=== PATIENT | male | born 1975 | race Caucasian/White ===

== ENCOUNTER 2024-05-27 08:40 | Outpatient (OUT) | payer SELFPAY ==
--- NOTE | 2024-05-27 09:00 | MR_ITS ---
The [address] [address] Patient Name: JENN DEMPSEY MRN: [id number] date: 1975 Sex: M Assigned Patient Location: MRI Current Patient Location: MRI Accession/Order Number: [id number] Exam Date: 05/27/2024 09:05 Report Date: 05/27/2024 10:54 At the request of: DAVIN MONTANA Procedure: MR head/brain wo con MR head/brain wo con, 05/27/2024 9:05 AM EDT INDICATION: Tremor G44.89, Headache G44.89 COMPARISON: There is no appropriate prior study for comparison. TECHNIQUE: Multiplanar, multisequential MRI images of brain were obtained without injection of contrast. FINDINGS: The cerebral sulci as well as ventricular system are appropriate for age. There is an extra-axial lesion within the left temporal frontal lobe with restricted diffusion and adjacent vasogenic edema most likely consistent with a meningioma. It measures 3.9 x 5.6 x 5.1 cm (transverse, AP, CC) and causes [id number] subfalcine herniation for approximately 1.5 cm. There is central mineralization within the lesion. There is a mass effect on the left lateral ventricle and the left cerebellar peduncle and suprasellar cistern. No hydrocephalus is noted. No hemorrhage is noted. Normal flow-void in the intracranial vessels is noted. The visualized portions of orbits, mastoid air cells as well as paranasal sinuses are unremarkable. MR/MR head/brain wo con IMPRESSION: No acute intracranial process is noted. Large left frontotemporal extra-axial with significant adjacent vasogenic edema causing [id number]-ve-[id number] subfalcine herniation most likely consistent with a meningioma. A complimentary postcontrast studies may be helpful for further evaluation. Electronically authenticated by: GODFREY JOSHI Date: 05/27/2024 10:54
== END 2024-05-27 08:41 | disposition home or self-care (01) ==
LOC: MRI 08:45
PROVIDERS: PCP Family Medicine; Visit Provider Family Medicine
DX: G44.89 Other headache syndrome (principal); R25.1 Tremor, unspecified
CPT/HCPCS: 70551

== ENCOUNTER 2025-01-26 09:20 | Outpatient (OUT) | payer SELFPAY ==
--- NOTE | 2025-01-26 09:25 | MR_ITS ---
[address] [address] Patient Name: JENN DEMPSEY MRN: [id number] date: 1975 Sex: M Assigned Patient Location: MRI Current Patient Location: MRI Accession/Order Number: [id number] Exam Date: 01/26/2025 10:41 Report Date: 01/26/2025 10:48 At the request of: NON-STAFF PHYSICIAN Procedure: MR head/brain wo/w con MRI the Brain with and without contrast TECHNIQUE: Multiplanar T1 and T2-weighted imaging of the brain. 14 cc of contrast HISTORY: Six-month follow-up assessment for right meningioma. COMPARISON: No prior imaging available for comparison VENTRICLES: Unremarkable BRAIN VOLUME: Adequate volume of brain parenchyma identified. BRAIN PARENCHYMAL SIGNAL INTENSITY: Left frontal gliosis and encephalomalacia likely postsurgical. . BLEED: None MASS EFFECT: No mass effect DIFFUSION RESTRICTION: None GRADIENT ECHO PARENCHYMAL SIGNAL LOSS: None MIDBRAIN: The midbrain structures are unremarkable. ANNAMARIE: Unremarkable MEDULLA: Unremarkable INTERNAL AUDITORY CANALS: Unremarkable SINUSES: Unremarkable ORBITS: Grossly unremarkable MASTOIDS: Unremarkable ENHANCEMENT: minimal postsurgical enhancement near the left frontal craniotomy. No abnormal enhancement seen to suggest recurrence of tumor. No new regions of enhancing mass. MR/MR head/brain wo/w con IMPRESSION: Left frontal postsurgical changes of gliosis and encephalomalacia in left frontal craniotomy with minimal postsurgical enhancement. No abnormal enhancement seen to suggest recurrence of tumor or new regions of enhancing tumor. Impression dictated by: Addy Robert M.D.01/26/2025 10:48 AM Dictation Location: [place] [id number] Electronically authenticated by: [id number] Y Date: 01/26/2025 10:48
--- OUTSIDE RECORDS SUMMARY | 2025-01-26 09:26 | XMS_ITS | CCD ---
Author Organization [facility] CliniSyla Care Team Providers Care Steno Typist Name Role Phone DAVIN MONTANA Referring Unavailable Unavailable Primary Care Provider Unavailabl e Nan DO, Davin Ba Unavailable Nan DO, Davin Ba Primary Care Provider NANCY, GANESH R Referring Unavailable NAN, DAVIN S Primary Care Unavailable KSHETTRY, GANESH R Referring Unavailable NAN, DAVIN S Primary Care Unavailable NAN, DAVIN S Primary Care Unavailable NAN, DAVIN S Primary Care Unavailable NAN, DAVIN S Referring Unavailable KSHETTRY, GANESH R Attending Unavailable KSHETTRY, GANESH R Attending Unavailable NAN, DAVIN S Primary Care Unavailable KSHETTRY, GANESH R Referring Unavailable SELINA MINOR Attending Unavailable NAN, DAVIN S Primary Care Unavailable SELF Referring Unavailable NAN, DAVIN S Primary Care Unavailable KSHETTRY, GANESH R Referring Unavailable KSHETTRY, GANESH R Admitting Unavailable KSHETTRY, GANESH R Attending Unavailable NAN, DAVIN S Primary Care Unavailable NAN, DAVIN S Primary Care Unavailable KSHETTRY, GANESH R Referring Unavailable DOMINIK DOWELL Referring Unavailable NAN, DAVIN S Primary Care Unavailable KSHETTRY, GANESH R Referring Unavailable NAN, DAVIN S Primary Care Unavailable Medications Current Medications Medication Drug Class(es) Dates Sig (Normalized) Sig (Original) acetaminophen 325 mg oral tablet (3 sources) take 2 tablets by mouth every six hours as needed acetaminophen (TYLENOL) 325 mg tablet Take 650 mg by mouth every 6 hours as needed for pain or fever (specify temp.). Active levETIRAcetam 1000 mg oral tablet (3 sources) Start: 07-05-2024 End: 07-19-2024 take 1 tablet by mouth twice daily levETIRAcetam (KEPPRA) 1,000 mg tablet take 1 tablet by ORAL/FEEDING TUBE route two times a day for 14 days. 28 tablet 07/05/2024 Active MULTIVITAMIN ORAL (6 sources) MULTIVITAMIN ORA L Take by mouth. Suspended MULTIVITAMIN ORA L Take by mouth. Active Completed/Discontinued Medications Medication Drug Class(es) Dates Sig (Normalized) Sig (Original) docusate sodium 100 mg oral capsule (2 sources) Start: 07-05-2024 End: 07-19-2024 take 1 capsule by mouth twice daily docusate sodium (COLACE) 100 mg capsule Take 1 capsule by mouth two times a day for 14 days. 28 capsule 07/05/2024 07/19/2024 Problems Problem Classification Problem Date Documented Date Episodic/Chronic Conditions associated with dizziness or vertigo (1 source) Dizziness and giddiness; Translations: [Dizziness and giddiness] Onset: 05-21-2024 Episodic Headache; including migraine (1 source) Other headache syndrome; Translations: [Other headache syndrome] Onset: 05-21-2024 Episodic Other and unspecified benign neoplasm (12 sources) Neoplasm of meninges; Translations: [Benign neoplasm of meninges, unspecified] Onset: 07-03-2024 06-05-2024 Chronic Other and unspecified benign neoplasm (1 source) Benign neoplasm of meninges, unspecified; Translations: [Meningioma (HCC)] Onset: 07-03-2024 Chronic Other nervous system disorders (1 source) Mass lesion of brain; Translations: [Other specified disorders of brain] 07-03-2024 Chronic Other nervous system disorders (1 source) Tremor, unspecified; Translations: [Tremor, unspecified] Onset: 05-21-2024 Episodic Other nervous system disorders (3 sources) Postoperative pain ; Translations: [Other acute postprocedural pain] Onset: 07-05-2024 07-05-2024 Episodic Other nervous system disorders (1 source) Other acute postprocedural pain; Translations: [Postoperative pain] Onset: 07-05-2024 Episodic Other screening for suspected conditions (not mental disorders or infectious disease) (2 sources) Encounter for screening for lipoid disorders; Translations: [Encounter for screening for malignant neoplasm of prostate] Onset: 05-21-2024 Episodic Results Test Name Value Interpretation Reference Range Facility [facility] 08-14-2024 CNOV Office Visit (NSCAMN ) ----- JENN FAN ([id number]) 1975 M Date Time Provider Department 08/14/24 11:00 AM [facility] During your visit today, we recorded the following information about you: Temperature Pulse Respiration Blood pressure 97.7 degrees 80/minute 18/minute 149/95 Weight 77.7 kg Lana Yanez MA 08/14/2024 10:50 AM Signed Additional intake questions: Has the patient had fever, nausea, vomiting, diarrhea, constipation, fatigue for > 1 week? No Does the patient have a decreased appetite? No Does patient want to see a Credit Risk Specialist? No (yes to any of above refer patient to schedulers for dietitian appointment) ) Does patient have any new or increased numbness or tingling of extremities? No Is patient interested in fertility information? No Does patient need any prescription refills? No Does patient have an advanced directive in place? 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 He had significantly improvement in cognitive/memory functions. He's doing well without complication and very pleased with result. I would like to consider [employer], but he's self-pay, we will inquire with company. As default, I would get one MRI brain with contrast at 6 months, before increasing to 9 or 12 given the atypical features radiographically preop. Hopefully he'll have a durable benefit from resection of convexity meningioma. PLAN: ---MRI brain with contrast at 6 months and visit with Selina Cruz MD Staff, Skull Base AND Cerebrovascular Surgery Department of Neurological Surgery [facility] SUBJECTIVE: Patient is doing really well No more NEW and pain Energy is good, much better Much improved cognitive and memory Better focus No seizure concerns Current Outpatient Medications Medication Sig MULTIVITAMIN ORAL Take by mouth. levETIRAcetam (KEPPRA) 1,000 mg tablet take 1 tablet by ORAL/FEEDING TUBE route two times a day for 14 days. acetaminophen (TYLENOL) 325 mg tablet Take 650 mg by mouth every 6 hours as needed for pain or fever (specify temp.). No current facility-administered medications for this visit. PHYSICAL EXAMINATION: BP 149/95[md notified[ Pulse 80 Temp (Src) 97.7 (Oral) Resp 18 Wt 171 lb 4.8 oz (77.7kg) SpO2 99% Oriented to person, place, and time Speech: Normal fluency and comprehension 2nd cranial nerve: Full visual kat 3rd, 4th and 6th cranial nerves: Pupils equally round and reactive to light, extraocular movements intact without nystagmus or subjective diplopia 5th cranial nerve: V1-3 intact to light touch bilaterally 7th cranial nerve: Facial muscles full and symmetric bilaterally 8th cranial nerve: hearing intact to finger rub bilaterally 9th cranial nerve: gag reflex test deferred 10th cranial nerve: Palate elevates symmetrically and uvula in the midline 11th nerve: shoulder shrug 5/5 bilaterally 12th cranial nerve: tongue protrudes in the midline Motors: 5/5 strength throughout without pronator drift Sensation: intact to light touch in all extremities Coordination: no dysmetria on finger-nose testing bilaterally Gait: able to stand and ambulate independently with normal gait Inc c/d/I, no temporalis atrophy well healed DATA REVIEW: MRI: GTR Ganesh Cruz MD 08/14/2024 11:07 AM Signed PLAN: Referring Provider: GANESH CRUZ [[id number]] Allergies As of Date: 08/14/2024 (No Known Allergies) Date Reviewed: 08/14/2024 Reviewed by: Lana Yanez MA - Fully Assessed Reason for Visit: Post Op [174] Primary Visit Diagnosis:Meningioma (HCC) [D32.9] Prescriptions as of 08/14/2024 - levETIRAcetam (KEPPRA) 1,000 mg tablet take 1 tablet by ORAL/FEEDING TUBE route two times a day for 14 days. - acetaminophen (TYLENOL) 325 mg tablet Take 650 mg by mouth every 6 hours as needed for pain or fever (specify temp.). - MULTIVITAMIN ORAL Take by mouth. Problem List As Of Date 08/14/2024 Noted Resolved Meningioma (HCC) [D32.9] 07/03/2024 Postoperative pain [G89.18] 07/05/2024 Other instructions from your clinician: PLAN: Visit Notes: >> Lana Yanez MA Fri Aug 14, 2024 10:48 AM Status: Signed Additional intake questions: Has the patient had fever, nausea, vomiting, diarrhea, constipation, fatigue for > 1 week? No Does the patient have a decreased a (more content not included)... Normal [facility] CNNURSEon 07-17-2024 [facility] Nurse Visit (NSCAMN) ----- JENN FAN ([id number]) 1975 M Date Time Provider Department 07/17/24 2:45 PM [facility]RA[facility] During your visit today, we recorded the following information about you: Lana Yanez MA 07/17/2024 2:57 PM Signed Reviewed and confirmed with patient that there were no changes in the the nursing assessment and vitals that were completed on July 17, 2024 during previous provider appointment. JOSE JUAN Alarcon Maria K, RN 07/20/2024 8:56 AM Signed Patient is here today accompanied by his for surgical incision wound check. Surgery: Craniotomy on 07/03/24 for Meningioma resection with Dr Ganesh Cruz. Patient is recovering well postoperatively. No neurological symptoms or complaints compared to preoperative baseline . Re-discussed postoperative activity and associated restrictions. Incision is well approximated and healing. There are no signs or symptoms of infection. Reviewed wound care with patient with good understanding and confirmed postoperative follow up appointment with Dr Ganesh Cruz. Patient aware to phone office with any questions or concerns. GIOVANNY Quiroz, RN Pattern Storage Clerk Referring Provider: SELF [[id number]] Allergies As of Date: 07/17/2024 (No Known Allergies) Date Reviewed: 07/17/2024 Reviewed by: Lana Yanez MA - Fully Assessed Primary Visit Diagnosis:Meningioma (HCC) [D32.9] Prescriptions as of 07/20/2024 - levETIRAcetam (KEPPRA) 1,000 mg tablet take 1 tablet by ORAL/FEEDING TUBE route two times a day for 14 days. - acetaminophen (TYLENOL) 325 mg tablet Take 650 mg by mouth every 6 hours as needed for pain or fever (specify temp.). - MULTIVITAMIN ORAL Take by mouth. Problem List As Of Date 07/17/2024 Noted Resolved Meningioma (HCC) [D32.9] 07/03/2024 Postoperative pain [G89.18] 07/05/2024 Visit Notes: >> Lana Yanez MA Fri Jul 17, 2024 2:57 PM Status: Signed Reviewed and confirmed with patient that there were no changes in the the nursing assessment and vitals that were completed on July 17, 2024 during previous provider appointment. Lana Yanez MA Encounter Status:Closed by JIL GRAHAM on 07/20/24 [facility] CNOVon 07-17-2024 CNOV Office Visit (NSCAMN ) ----- JENN FAN ([id number]) 1975 M Date Time Provider Department 07/17/24 2:45 PM SELINA MINOR [facility] During your visit today, we recorded the following information about you: Temperature Pulse Respiration Blood pressure 97.6 degrees 88/minute 18/minute 137/85 Weight 78.1 kg Selina Minor APRN.DIRECTOR CARD 07/17/2024 3:30 PM Signed Neurological [facility] NEURO-ONCOLOGY OUTPATIENT NOTE PURPOSE OF VISIT: Consultation requested by Dr. Ganesh Cruz for an opinion regarding meningioma and my final recommendations will be communicated to the referring physician by way of shared medical record or letter to requesting physician via US mail. CHIEF COMPLAINT : Post op MEDICAL DECISION MAKING Assessment AND Plan 1. 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 Cruz as scheduled on 08/14/24 - Reviewed signs and symptoms that would prompt sooner evaluation - The patient has our contact information and was advised to call if new symptoms, questions or concerns arise prior to next scheduled visit. - All questions were answered. Selina Minor APRN.DIRECTOR CARD Certified Nurse Practitioner cc: Ganesh Cruz MD-[facility] Subjective HISTORY OF PRESENT ILLNESS: Jenn Fan is a 48 year old year old right-handed male who was found to have a 5.6 cm left fronto-temporal extra-axial lesion with surrounding edema, resulting in midline shift when he presented with a few months of headaches, speech difficulty, memory and personality changes. He is now . S/p Nguyen Grade II Left sided sphenofrontotemporal skull base approach with orbitotomy to approach anterior and middle fossa for skull base tumor on 07/03/24 with pathology showing Meningothelial meningioma, WHO Grade 1. Ki 67 index of 5-6%. INTERVAL HISTORY 07/17/24 Doing well. Reports clearer thoughts and better memory. No post surgical pain. No speech difficulties. All around feels more like himself. SOCIAL HISTORY: Social History Tobacco Use Smoking status: Never Smokeless tobacco: Former Types: Chew Quit date: 1999 Substance Use Topics Alcohol use: Not Currently Drug use: Not Currently Comment: last use in 1999 - MJ No past medical history on file. FAMILY HISTORY Problem Relation Age of Onset Anesthesia Problems No Family History Current Outpatient Medications Medication Sig levETIRAcetam (KEPPRA) 1,000 mg tablet take 1 tablet by ORAL/FEEDING TUBE route two times a day for 14 days. methocarbamol (ROBAXIN) 750 mg tablet Take 1 tablet by mouth three times a day as needed for up to 10 days. docusate sodium (COLACE) 100 mg capsule Take 1 capsule by mouth two times a day for 14 days. acetaminophen (TYLENOL) 325 mg tablet Take 650 mg by mouth every 6 hours as needed for pain or fever (specify temp.). MULTIVITAMIN ORAL Take by mouth. No current facility-administered medications for this visit. REVIEW OF SYSTEMS : Neurological : No complaint of headache No complaint of tinnitus No complaint of decreased hearing No complaint of diplopia No complaints of blurred vision. No complaint of arm/leg numbness No problem with limb coordination No complaint of syncope No complaints of seizures. No complaints of memory changes or disorientation. General : Constitutional: No recent fever or weight loss. Eyes: No history of glaucoma or cataracts ENMT: No recent ear infection, nasal congestion, mouth sores or sore throat. CV: No history of chest pain, palpitations or leg swelling Respiratory: No history of SOB, wheezing or recent cough. Gastrointestinal: No history of nausea, vomiting, dysphagia or abdominal pain. Genitourinary: No history of hematuria or dysuria. Musculoskeletal: No complaint of arthritis, unstable gait or arm/leg weakness Psychiatric: No history of hallucinations, depression, or anxiety Objective PHYSICAL EXAMINATION: There were no vitals taken for this visit. General appearance: Well appearing, alert, in no acute distress, well-hydrated, well nourished. Skin: Skin color, texture, turgor normal, no suspicious rashes or lesions, incision clean, dry, intact Oropharynx: Lips, mucosa, and tongue normal, teeth and gums normal, oropharynx normal NEUROLOGICAL EXAM: Higher integrative functions: Oriented to person, place AND time. Memory: Good recent and remote. Attention Span and Concentration: Good. L (more content not included)... [facility] HNO [facility]: [id number] Author: GANESH CRUZ MD Service: Neurosurgery Author Type: Resident Type: Discharge Summary Filed: 07/06/2024 08:54 Note Text: ----- Attestation signed by Ganesh Cruz MD at 07/06/2024 8:54 AM Ganesh Cruz MD Staff, Skull Base AND Cerebrovascular Surgery Department of Neurological Surgery [facility] ----- [facility] [place] [phone] or [phone] [facility] L I N F O R M A T I O N ----- Neurological Early Branch Discharge Summary Patient Name: Jenn Fan Account #: Data Unavailable Admission Date: 07/03/2024 Date of Evaluation: 07/05/24 Time of Evaluation: 11:24 AM Admission Date: 07/03/2024 Discharge Date: 07/05/24 Attending Physician: Ganesh Cruz MD PCP: Davin Montana DO Reason for Hospitalization: sphenoidorbitalfrontal meningioma, left sided Final Diagnoses: Patient Active Hospital Problem List: Meningioma (HCC) Date Noted: 07/03/2024 Operations During Hospitalization: Left sided craniotomy for resection of brain lesion Hospital Course: The patient was electively admitted to the [facility]. After being optimized for surgery by the Neurosurgery and IMPACT teams, Jenn Fan was identified and brought into the Operating Room by the anesthesia and nursing teams. Prior to surgery the patient was treated with antibiotics and continued with antibiotics postoperatively. The patient underwent a Left sided craniotomy for resection of brain lesion with general endotracheal anesthesia. The patient tolerated the procedure and was taken to PACU in stable condition. The patient was then transferred up to a Neuro SDU hospital room for postoperative management. Patient was fitted with sequential compression devices for DVT prophylaxis. Postoperatively the patient did well. The patient was transitioned to oral pain medications, ambulated, tolerated diet and passed gas. MRI brain was completed on 07/04/24 and demonstrated GTR with minimal DWI signal around the resection bed. The patient was discharged on 07/05/24 in stable condition. Complete and comprehensive discharge instructions were provided to the patient as well as necessary prescriptions. The patient had no further questions and was advised to call with any questions, concerns, or problems. Patient's pain was well controlled with Oral Pain Medications. Physical therapy was started on POD # 1, and the final recomandation for dispo was to: Home without skilled needs Discharge Medications: Medication List ASK your doctor about these medications MULTIVITAMIN ORAL TylenoL 325 mg tablet Generic drug: acetaminophen Discharge Objective Exam: 07/05/24 0400 07/05/24 0800 07/05/24 0815 07/05/24 0822 BP: 128/70 154/90 Pulse: 72 75 82 Resp: 15 (!) 31 18 Temp: 36.8 ?C (98.2 ?F) 36.7 ?C (98.1 ?F) TempSrc: SpO2: 97% 98% 100% Weight: Height: Exam AAOx3 Eyes open spontaneously Speech intact PERRL Visual kat full EOMI L periorbital edema, o/w symmetric RUE 5 LUE 5 RLE 5 LLE 5 No drift Cranial incision c/d/i Normal [facility] HEALTHon 07-04-2024 ALLIED HEALTH HNO ID: [id number] Author: SHANI WALLACE RT(Candace) Service: Radiology Author Type: Activities Concierge Type: Allied Health Filed: 07/04/2024 08:46 Note Text: Radiology Service Progress Note PATIENT NAME: Jenn Fan DATE OF SERVICE: July 04, 2024 TIME: 8:46 AM PATIENT IDENTITY VERIFICATION COMPLETED USING TWO (2) IDENTIFIERS: Name and Date of confirmed by patient verbally and Name and Date of confirmed by identification band. FALL SCREENING: Has the patient had 2 falls in the last year or 1 fall with injury or currently using an Ambulatory Assistive Device (Walker, Cane, Wheelchair, Crutches, etc.)? Inpatient: Screened on floor PATIENT GENDER DATA: Male PATIENT RELEVANT IMPLANT DATA REVIEWED: Yes PATIENT PRESENTS WITH AN IMPLANTABLE OR ATTACHED KINDERGARTEN TUTOR: No RADIOLOGY DEPARTMENT: MR; Exam(s) Completed: Head: Routine Brain PERIPHERAL IV DATA: Inpatient: see LDA documentation SIGNED BY: RT Doyle(R) July 04, 2024 8:46 AM Normal [facility] ANES POSTPROC EVALon 024 ANES POSTPROC EVAL HNO ID: [id number] Author: ROYAL JOSEPH MD Service: ? Author Type: Anesthesiologist Type: Anesthesia Postprocedure Evaluation Filed: 07/04/2024 01:08 Note Text: POST ANESTHESIA EVALUATION NOTE : 1975 Procedure Summary Date: 07/03/24 Room / Location: [address] [facility] Anesthesia Start: 1215 Anesthesia Stop: 1900 Procedures: ORBITOCRANIAL ZYGOMATIC APPROACH TO MID CRANI-FOSSA OSTEOTOMY W/ ELEVATE TEMPORAL LOBE (Left: Brain) RESECTION LESION BASE OF POSTERIOR CRANIAL FOSSA INTRADURAL W/ REPAIR (Left: Brain) STEREOTACTIC COMPUTER-ASSISTED NAVIGATIONAL PROCEDURE CRANIAL (Brain) MICROSURGICAL TECHNIQUES REQUIRING MICROSCOPE (Brain) Diagnosis: Meningioma (HCC) (Meningioma (HCC) [D32.9]) Surgeons: Ganesh Cruz MD Responsible Provider: Royal Joseph MD Anesthesia Type: general ASA Status: 2 Anesthesia Type: general Airway Type: ETT Last Vitals Vitals Value Taken Time BP 115/75 07/04/24 0101 Temp 37 ?C (98.6 ?F) 07/03/242029 Pulse 83 07/04/24105 Resp 17 07/04/24 010 SpO2 95 % 07/04/24105 Vitals shown include unfiled device data. Post Anesthesia Patient Status Patient Evaluation: PACU. PACU/ICU Patient Condition: stable. Neurological Status: aware and responsive. Pulmonary Status: breathing comfortably on supplemental oxygen Airway Control: returned to baseline unsupported. Cardiovascular Status: stable. Pain Management: clinically adequate Postoperative Hydration: acceptable. Intraoperative Events: no significant anesthesia events Post Operative Nausea/Vomiting Status: no significant post operative nausea or vomiting Recommendation: continue current plan of care and further care per PACU/ICU/floor team. Anesthesia Observations No Documentation SIGNATURE: Royal Joseph MD PATIENT NAME: Jenn Fan DATE: July 04, 2024 TIME: 1:08 AM CSN: [id number] Normal [facility] MRI BRAIN WO/W IVCONon 07-04 MRI BRAIN WO/W IVCON * * *Final Report* * * DATE OF EXAM: Jul 04 2024 8:58AM QBM [id number] - MRI BRAIN WO/W IVCON / PROCEDURE REASON: Post-operative / post-procedure assessment, asymptomatic * * * * Physician Interpretation * * * * EXAMINATION: MRI BRAIN WO/W IVCON CLINICAL HISTORY: Postop follow-up TECHNIQUE: Routine brain MRI protocol without and with contrast including diffusion images. MQ: [id number] Contrast: Please refer to technologist's note for contrast information. COMPARISON: MR brain from 07/02/2024 and 05/27/2024 RESULT: Acute Change: Mild restricted diffusion along the peripheral margins of the surgical cavity consistent with postop ischemic changes. Hemorrhage: See below. Mass Lesion/ Mass Effect: Status post left frontal craniotomy for frontal mass resection. Postsurgical changes such as pneumocephalus, stability artifact, T1 intrinsic signal and FLAIR signal within the margins of the surgical cavity consistent with blood byproducts and subdural collection underlying the craniotomy site are noted. Subgaleal collection overlies the craniotomy site. Slight interval improvement of the T2/FLAIR hyperintense signal in the left frontal lobe with improved midline shift now measuring 9 mm, most previously measured 12 on MR dated 05/27/2024. Chronic Change: The white matter is within otherwise normal limits of signal intensity for age. Parenchyma: No significant volume loss for age. Ventricles: Effacement of the left lateral ventricle secondary to vasogenic edema as described, slightly improved from prior imaging. Skull Base: Hypothalamic and pituitary region are grossly normal. Craniocervical junction is normal. No significant marrow replacement process. Vasculature: Major intracranial arterial structures, and dural venous sinuses show typical flow void, suggesting patency by spin echo criteria. Other: The visualized paranasal sinuses. Trace fluid right mastoid air cell. The orbits and extracranial soft tissues are unremarkable. IMPRESSION: Expected postoperative changes related to left frontal craniotomy for tumor resection. Slight interval improvement of the T2/FLAIR hyperintense signal and subfalcine shift. Pick Pack Worker: SYDNEY Transcribe Date/Time: Jul 04 2024 9:00A Dictated by : CHRISTI POOLE MD This examination was interpreted and the report reviewed and electronically signed by: TRISH DEXTER MD on Jul 04 2024 9:26AM EST [id number] Normal [facility] NURSING PROGon 07-04-2024 NURSING PROG HNO ID: [id number] Author: SUE POLLACK RN Service: Nursing Author Type: Registered Nurse Type: Nursing Progress Note Filed: 07/04/2024 08:31 Note Text: Radiology Service Progress Note DATE OF SERVICE: July 04, 2024 TIME: 8:30 AM PATIENT WEIGHT: 180LBS PATIENT IDENTITY VERIFICATION COMPLETED USING TWO (2) STANDARD IDENTIFIERS: Name and Date of confirmed by patient verbally and Name and Date of confirmed by identification band. FALL SCREENING: Has the patient had 2 falls in the last year or 1 fall with injury or currently using an Ambulatory Assistive Device (Walker, Cane, Wheelchair, Crutches, etc.)? Inpatient: Screened on floor PATIENT GENDER DATA: Male ALLERGIES: Reviewed and unchanged CONTRAST ALLERGY: No EXAM: MRI - CONTRAST TYPE: GROUP II IV SITE: Inpatient - refer to LDA documentation IV SITE APPEARANCE: Clean,Dry and Intact SIGNATURE: Sue Pollack RN PATIENT NAME: Jenn Fan DATE: July 04, 2024 TIME: 8:30 AM Normal [facility] THERAPY NTon 07-04-2024 THERAPY NT HNO ID: [id number] Author: HEAVEN ESCAMILLA, PT, DPT Service: Physical Therapy Author Type: Physical Therapist Type: Therapy (PT/OT/Speech/Resp) Filed: 07/04/2024 15:03 Note Text: Physical Therapy Evaluation Summary SERVICE DATE: 07/04/2024 SERVICE TIME: 1408 to 1423 ROOM: [address] PT 6 Clicks Score: 24 DISCHARGE RECOMMENDATIONS Home Recommended Discharge Equipment: No equipment needs anticipated ASSESSMENT Response to Therapy Interventions: Good Participation in Activities, On-Track to Achieve Discharge Goals, Pain RN approved today's session. Patient sitting up in chair at beginning of session, reporting slight pain in head. Patient able to perform all functional mobility this date with supervision only. Reviewed crani precautions with patient and spouse as well as answered all questions. Will sign off a this time PRECAUTIONS Crani CURRENT HOSPITAL COURSE S/p L crani for meningioma rxn Relevant Past Medical History: left sided meningioma HOME LIVING Patient Lives With: Spouse Assistance Available: 24-Hour Entry To Home: Stairs Number Of Stairs Into Home: 4 Number Of Stairs To Bed/Bath: flight Stairs to Bed/Bath with: Unilateral Rail Equipment Owned: (None) PRIOR FUNCTIONAL LEVEL Within Functional Limits Pt IND with ADLs/IADLs and functional mobility with no AD. Drives, works multimedia manager SUBJECTIVE Pt agreeable to therapy this date THERAPY DIAGNOSIS Reduced mobility-other TREATMENT INTERVENTIONS Evaluation Skilled Treatment Time (minutes): 15 TRAINING AND EDUCATION PROVIDED Advanced Balance Activities, Anatomy and Impact on Deficits, Benefits of In-Hospital Mobility, Disease Specific Education, Discharge Planning, Energy Conservation, Expected Functional Level, Falls Prevention, Home Safety, Pain Neuroscience, Patient Exercise/Therapy Program Support Needs, Precautions/Restrictions, Transfers, Standing Balance, Treatment Protocol, Stair Navigation, Role of Physical Therapy THERAPEUTIC SKILLS USED Activity Dosing, Cues for Sequencing/Proper Technique for Activity, Cuing Verbal, Cuing Visual, Cuing Tactile, Management of Critical Lines, Tubes and/or Drains, Teach-Back for Education FUNCTIONAL STATUS Bed Mobility Transfers Sit To Stand: Supervision Stand To Sit: Supervision Bed to Chair Gait Supervision Gait Device: None General Deviations/Observations: Step length decreased Gait Distance (feet): 200 ft Stairs Supervision Stairs Device: Rail Number of Stairs: 10 GOALS Patient will demonstrate progress with functional mobility to allow safe discharge to home with available support and/or physical assistance. Rehab Potential: Good PLAN PT Frequency: Discontinue Therapy Services Reasons Therapy Services Discontinued: Goals met Treatment Interventions: Self Care / Home Management, Education, Energy Conservation Training, Strengthening, Balance Training, Neuromuscular Re-education, Functional Mobility Training, Joint Mobility SIGNATURE: Heaven Escamilla PT, DPT PATIENT NAME: Jenn Fan DATE: July 04, 2024 TIME: 3:03 PM Normal [facility] NT HNO ID: [id number] Author: CÉSAR CHOPRA, OT/L Service: Occupational Therapy Author Type: Occupational Therapist Type: Therapy (PT/OT/Speech/Resp) Filed: 07/04/2024 09:53 Note Text: Occupational Therapy Evaluation Summary SERVICE DATE: 07/04/2024 SERVICE TIME: 922 to 947 ROOM: [address] OT 6 Clicks Score: 24 DISCHARGE RECOMMENDATIONS Home Anticipated Discharge Needs: Physical Assist at Home Physical Assist at Home for: Cleaning, Laundry, Meals, Transportation, Shopping ASSESSMENT Response to Therapy Interventions: Good Participation in Activities Pt demos good safety and IND with ADLs and functional mobility. BUE in tact, has some L side vision impairments and educated on scanning activities and compensatory strategies. Educated in crani precuaitons and LB dressing techniques. Has some L eye swelling but able to fully open eye so not KT tape needed. Will DC OT PRECAUTIONS Crani CURRENT HOSPITAL COURSE S/p L crani for meningioma rxn Relevant Past Medical History: left sided meningioma HOME LIVING Patient Lives With: Spouse Entry To Home: Stairs Number Of Stairs Into Home: 4 Number Of Stairs To Bed/Bath: flight PRIOR FUNCTIONAL LEVEL Within Functional Limits Pt IND with ADLs/IADLs and functional mobility with no AD. Drives, works multimedia manager Baseline Cognition: Oriented to self, Oriented to place, Oriented to time, Oriented to situation SUBJECTIVE Pt agreeable to OT COGNITION Responsiveness: Alert, Awake Follows Commands: 3-step Commands Cog 6 Start of Session Total Points (Max Score = 24): 24 (07/04/24) Cog 6 End of Session Total Points (Max Score = 24): 24 (07/04/24) 4AT Score: 0 (07/04/24) Delirium Positive/Negative: Negative (07/04/24) THERAPY DIAGNOSIS No Skilled Need TREATMENT INTERVENTIONS Evaluation, Therapeutic Activity (35912) Timed Code Treatment (minutes): 10 Skilled Treatment Time (minutes): 25 TRAINING AND EDUCATION PROVIDED Activity Adaptation/Compensatory Strategies, Bed Mobility, Benefits of In-Hospital Mobility THERAPEUTIC SKILLS USED Activity Dosing, Cuing Verbal, Facilitation of Joint Range of Motion, Movement Facilitation, Therapeutic Use of Self FUNCTIONAL STATUS Activities of Daily Living Assist Level Additional Information Feeding Independent Grooming Independent Bathing Upper Body Stand By Assistance Bathing Lower Body Stand By Assistance Dressing Upper Body Stand By Assistance Dressing Lower Body Stand By Assistance Toileting Stand By Assistance Mobility Assist Level Additional Information Bed Mobility Sit to Stand Stand By Assistance Stand to Sit Stand By Assistance Bed to Chair Stand By Assistance Bed To Chair Transfer Type: Stepping Bed To Chair Transfer Equipment: Gait Belt Toilet/Commode Supervision Shower Functional Mobility Stand By Assistance GOALS PLAN OT Frequency: Discontinue Therapy Services Reasons Therapy Services Discontinued: Goals met SIGNATURE: César Chopra OT/L PATIENT NAME: Jenn Fan DATE: July 04, 2024 TIME: 9:53 AM Normal [facility] ANES PRE-OPon 07-03-2024 ANES PRE-OP HNO ID: [id number] Author: CAITLIN CARDOSO DO Service: ? Author Type: Physician Type: Anesthesia Preprocedure Evaluation Filed: 07/03/2024 12:03 Note Text: ANESTHESIOLOGY DAY OF SURGERY NOTE : 1975 Procedure Information Date/Time: 07/03/24 1215 Procedures: ORBITOCRANIAL ZYGOMATIC APPROACH TO MID CRANI-FOSSA OSTEOTOMY W/ ELEVATE TEMPORAL LOBE (Left: Brain) RESECTION LESION BASE OF POSTERIOR CRANIAL FOSSA INTRADURAL W/ REPAIR (Left: Brain) STEREOTACTIC COMPUTER-ASSISTED NAVIGATIONAL PROCEDURE CRANIAL (Brain) MICROSURGICAL TECHNIQUES REQUIRING MICROSCOPE (Brain) Location: [facility]IN [facility] Surgeons: Ganesh Cruz MD Estimated body mass index is 26.83 kg/m? as calculated from the following: Height as of 07/02/24: 175.3 cm (5' 9 ). Weight as of 07/02/24: 82.4 kg (181 lb 10.5 oz). Most recent hematocrit and potassium results: Hematocrit 42.9 07/02/2024 Potassium 4.3 07/02/2024 Relevant Problems No relevant active problems I - PHYSICAL EVALUATION AIRWAY Patient intubated: No. Tracheostomy tube not present Mallampati: II. TM distance: >3 FB. Neck ROM: full ROM without neurological symptoms. Mouth opening: adequate. Short neck: no. Thick neck: no DENTAL Dental findings: teeth intact. II - ANESTHESIA PLAN ASA Score: 2 Anesthetic Plan: general Airway type: ETT NPO Status: adequate Beta Nik Monitoring Plan Monitoring plan: standard ASA and invasive hemodynamic monitoring. Monitoring method: arterial Line Post Procedure Analgesic Plan Postoperative analgesic plan: per surgical service, parenteral or oral opioids and multimodal analgesia. Informed Consent Anesthetic risks, benefits, alternatives, personnel and consent discussed: yes. Patient / Responsible Constitution Party agrees to proceed: yes Patient / Surrogate agrees to blood products: Yes Significant changes in the patient condition since the History and Physical, not otherwise documented in primary service progress note: no. Potential Anesthesia issues that may suggest increased risk of complications or contraindication to planned procedure: none. Vitals Value Taken Time BP 142/90 07/03/24 1042 Pulse 83 07/03/24 1042 Resp 16 07/03/24 1042 Temp 36.2 ?C (97.2 ?F) 07/03/24 1042 SpO2 98 % 07/03/24 1042 Facility-Administered Medications as of 07/03/2024 Medication Dose Route Frequency lidocaine (PF) 10 mg/mL (1 %) 1-2 mg injection (XYLOCAINE) 0.1-0.2 mL INTRADERMAL PRN Or lidocaine 1% 0.25 mL subcutaneous j-tip syringe (XYLOCAINE) 0.25 mL SUBCUTANEOUS PRN lactated ringers iv infusion 5-30 mL/hr INTRAVENOUS CONTINUOUS NaCl 0.9% iv flush bag 20 mL INTRAVENOUS PRN ceFAZolin iv piggyback 2 g in D5W (iso-osmotic) 100 mL (ANCEF) 2 g INTRAVENOUS Pre-Op Once vancomycin 1.25 g in NaCl 0.9% 250 mL (VANCOCIN) 0.015 g/kg/dose INTRAVENOUS Pre-Op Once Outpatient Medications as of 07/03/2024 Medication Sig acetaminophen (TYLENOL) 325 mg tablet Take 650 mg by mouth every 6 hours as needed for pain or fever (specify temp.). I have interviewed and examined the patient. I have reviewed the medical record and/or the pre-anesthesia evaluation, pertinent labs, and test results. This contains updated information obtained within 48 hours of Surgery/Procedure. SIGNATURE: Caitlin Cardoso DO PATIENT NAME: Jenn Fan DATE: July 03, 2024 TIME: 12:03 PM CSN: [id number] Normal [facility] ARTERIAL BLOOD GASES WITH IO NIZED MAGNESIUMon 07-03-2024 Base deficit (BldA) [Moles/Vol] -2 mmol/L Normal -2-0 [facility] Comment on above: Order Comment: Speci men Type: ARTERIAL BLOOD SPECIMENOrdering Facility: [facility] Address: [address] [place] [address] Performed By: #### A LLMG ####[facility] LABCLIA [id number] [place] [address] [place] Calcium.ionized (Bld) [Mass/Vol] 1.12 mmol/L Normal 1.08-1.30 [facility] Comment on above: Order Comment: Speci men Type: ARTERIAL BLOOD SPECIMENOrdering Facility: [facility] Address: [address] [place] [address] Performed By: #### A LLMG ####[facility] LABIA [id number] [place] [address] [place] Calcium.ionized adjusted to pH 7.4 (BldA) [Moles/Vol] 1.13 mmol/L Normal 1.08-1.30 [facility] Comment on above: Order Comment: Speci men Type: ARTERIAL BLOOD SPECIMENOrdering Facility: [facility] Address: [address] [place] [address] Performed By: #### A LLMG ####[facility] LABIA [id number] [place] [address] [place] Carboxyhemoglobin (BldA) [Mass fraction] 1.9 % Normal 0.0-2.0 [facility] Comment on above: Order Comment: Speci men Type: ARTERIAL BLOOD SPECIMENOrdering Facility: [facility] Address: [address] [place] [address] Result Comment: Carb oxyhemoglobin Reference Range for Smokers: 2.0-8.0% Performed By: #### A LLMG ####[facility] LABIA [id number] [place] [address] [place] CO2 (Bld) [Partial pressure] 33 mm Hg Low 36-46 [facility] Comment on above: Order Comment: Speci men Type: ARTERIAL BLOOD SPECIMENOrdering Facility: [facility] Address: [address] [place] [address] Performed By: #### A LLMG ####[facility] LABCLIA [id number] [place] [address] [place] CO2 adjusted to patient's actual temperature (Bld) [Partial pressure] 33 mmHg Low 36-46 [facility] Comment on above: Order Comment: Speci men Type: ARTERIAL BLOOD SPECIMENOrdering Facility: [facility] Address: [address] [place] [address] Performed By: #### A LLMG ####[facility] LABCLIA [id number] [place] [address] [place] Glucose [Mass/Vol] 137 mg/dL High 60-105 [facility] Comment on above: Order Comment: Speci men Type: ARTERIAL BLOOD SPECIMENOrdering Facility: [facility] Address: [address] [place] [address] Performed By: #### A LLMG ####[facility] LABCLIA [id number] [place] [address] [place] HCO3 (Bld) [Moles/Vol] 21 mmol/L Low 22-26 [facility] Comment on above: Order Comment: Speci men Type: ARTERIAL BLOOD SPECIMENOrdering Facility: [facility] Address: [address] [place] [address] Performed By: #### A LLMG ####[facility] LABCLIA [id number] [place] [address] [place] Hematocrit (Bld) [Volume fraction] 37.7 % Low 39.0-51.0 [facility] Comment on above: Order Comment: Speci men Type: ARTERIAL BLOOD SPECIMENOrdering Facility: [facility] Address: [address] [place] [address] Performed By: #### A LLMG ####[facility] LABCLIA [id number] [place] [address] [place] Hemoglobin (Bld) [Mass/Vol] 12.2 g/dL Low 13.0-17.0 [facility] Comment on above: Order Comment: Speci men Type: ARTERIAL BLOOD SPECIMENOrdering Facility: [facility] Address: [address] [place] [address] Performed By: #### A LLMG ####[facility] LABIA [id number] [place] [address] [place] Lactate [Moles/Vol] 1.5 mmol/L Normal 0.5-2.[address] [facility] Comment on above: Order Comment: Speci men Type: ARTERIAL BLOOD SPECIMENOrdering Facility: [facility] Address: [address] [place] [address] Performed By: #### A LLMG ####[facility] [id number] [place] [address] [place] Magnesium [Moles/Vol] 0.52 mmol/L Normal 0.45-0.60 [facility] Comment on above: Order Comment: Speci men Type: ARTERIAL BLOOD SPECIMENOrdering Facility: [facility] Address: [address] [place] [address] Performed By: #### A LLMG ####[facility] LABIA [id number] [place] [address] [place] Methemoglobin (Bld) [Mass fraction] 0.8 % Normal 0.0-1.5 [facility] Comment on above: Order Comment: Speci men Type: ARTERIAL BLOOD SPECIMENOrdering Facility: [facility] Address: [address] [place] [address] Performed By: #### A LLMG ####[facility] LABIA [id number] [place] [address] [place] Oxygen (Bld) [Partial pressure] 210 mm Hg High 85-95 [facility] Comment on above: Order Comment: Speci men Type: ARTERIAL BLOOD SPECIMENOrdering Facility: [facility] Address: [address] [place] [address] Performed By: #### A LLMG ####[facility] LABCLIA [id number] [place] [address] [place] Oxygen adjusted to patient's actual temperature (Bld) [Partial pressure] 210 mmHg High 85-95 [facility] Comment on above: Order Comment: Speci men Type: ARTERIAL BLOOD SPECIMENOrdering Facility: [facility] Address: [address] [place] [address] Performed By: #### A LLMG ####[facility] LABCLIA [id number] [place] [address] [place] Oxyhemoglobin (BldA) [Mass fraction] 97 % Normal 95-98 [facility] Comment on above: Order Comment: Speci men Type: ARTERIAL BLOOD SPECIMENOrdering Facility: [facility] Address: [address] [place] [address] Performed By: #### A LLMG ####[facility] LABIA [id number] [place] [address] [place] pH (Bld) 7.43 [pH] Normal 7.35-7.45 [facility] Comment on above: Order Comment: Speci men Type: ARTERIAL BLOOD SPECIMENOrdering Facility: [facility] Address: [address] [place] [address] Performed By: #### A LLMG ####[facility] LABCLIA [id number] [place] [address] [place] pH adjusted to patient's actual temperature (Bld) 7.43 Normal 7.35-7.45 [facility] Comment on above: Order Comment: Speci men Type: ARTERIAL BLOOD SPECIMENOrdering Facility: [facility] Address: [address] [place] [address] Performed By: #### A LLMG ####[facility] LABCLIA [id number] [place] [address] [place] Potassium [Moles/Vol] 4.0 mmol/L Normal 3.5-5.0 [facility] Comment on above: Order Comment: Speci men Type: ARTERIAL BLOOD SPECIMENOrdering Facility: [facility] Address: [address] [place] [address] Performed By: #### A LLMG ####[facility] LABIA [id number] [place] [address] [place] Sodium [Moles/Vol] 141 mmol/L Normal 136-144 [facility] Comment on above: Order Comment: Speci men Type: ARTERIAL BLOOD SPECIMENOrdering Facility: [facility] Address: [address] [place] [address] Performed By: #### A LLMG ####[facility] LAB[facility] [id number] [place] [address] [place] Base deficit (BldA) [Moles/Vol] -2 mmol/L Normal -2-0 [facility] Comment on above: Order Comment: Speci men Type: ARTERIAL BLOOD SPECIMENOrdering Facility: [facility] Address: [address] [place] [address] Performed By: #### A LLMG ####[facility] [id number] [place] [address] [place] Calcium.ionized (Bld) [Mass/Vol] 1.11 mmol/L Normal 1.08-1.30 [facility] Comment on above: Order Comment: Speci men Type: ARTERIAL BLOOD SPECIMENOrdering Facility: [facility] Address: [address] [place] [address] Performed By: #### A LLMG ####[facility] LAB[facility] [id number] [place] [address] [place] Calcium.ionized adjusted to pH 7.4 (BldA) [Moles/Vol] 1.14 mmol/L Normal 1.08-1.30 [facility] Comment on above: Order Comment: Speci men Type: ARTERIAL BLOOD SPECIMENOrdering Facility: [facility] Address: [address] [place] [address] Performed By: #### A LLMG ####[facility] LABCLIA [id number] [place] [address] [place] Carboxyhemoglobin (BldA) [Mass fraction] 1.4 % Normal 0.0-2.0 [facility] Comment on above: Order Comment: Speci men Type: ARTERIAL BLOOD SPECIMENOrdering Facility: [facility] Address: [address] [place] [address] Result Comment: Carb oxyhemoglobin Reference Range for Smokers: 2.0-8.0% Performed By: #### A LLMG ####[facility] LABCLIA [id number] [place] [address] [place] CO2 (Bld) [Partial pressure] 32 mm Hg Low 36-46 [facility] Comment on above: Order Comment: Speci men Type: ARTERIAL BLOOD SPECIMENOrdering Facility: [facility] Address: [address] [place] [address] Performed By: #### A LLMG ####[facility] LABCLIA [id number] [place] [address] [place] CO2 adjusted to patient's actual temperature (Bld) [Partial pressure] 32 mmHg Low 36-46 [facility] Comment on above: Order Comment: Speci men Type: ARTERIAL BLOOD SPECIMENOrdering Facility: [facility] Address: [address] [place] [address] Performed By: #### A LLMG ####[facility] LABCLIA [id number] [place] [address] [place] Glucose [Mass/Vol] 118 mg/dL High 60-105 [facility] Comment on above: Order Comment: Speci men Type: ARTERIAL BLOOD SPECIMENOrdering Facility: [facility] Address: [address] [place] [address] Performed By: #### A LLMG ####[facility] LABCLIA [id number] [place] [address] [place] HCO3 (Bld) [Moles/Vol] 21 mmol/L Low 22-26 [facility] Comment on above: Order Comment: Speci men Type: ARTERIAL BLOOD SPECIMENOrdering Facility: [facility] Address: [address] [place] [address] Performed By: #### A LLMG ####[facility] LABCLIA [id number] [place] [address] [place] Hematocrit (Bld) [Volume fraction] 38.5 % Low 39.0-51.0 [facility] Comment on above: Order Comment: Speci men Type: ARTERIAL BLOOD SPECIMENOrdering Facility: [facility] Address: [address] [place] [address] Performed By: #### A LLMG ####[facility] LABCLIA [id number] [place] [address] [place] Hemoglobin (Bld) [Mass/Vol] 12.5 g/dL Low 13.0-17.0 [facility] Comment on above: Order Comment: Speci men Type: ARTERIAL BLOOD SPECIMENOrdering Facility: [facility] Address: [address] [place] [address] Performed By: #### A LLMG ####[facility] LABIA [id number] [place] [address] [place] Lactate [Moles/Vol] 1.6 mmol/L Normal 0.5-2.[address] [facility] Comment on above: Order Comment: Speci men Type: ARTERIAL BLOOD SPECIMENOrdering Facility: [facility] Address: [address] [place] [address] Performed By: #### A LLMG ####[facility] LABCLIA [id number] [place] [address] [place] Magnesium [Moles/Vol] 0.51 mmol/L Normal 0.45-0.60 [facility] Comment on above: Order Comment: Speci men Type: ARTERIAL BLOOD SPECIMENOrdering Facility: [facility] Address: [address] [place] [address] Performed By: #### A LLMG ####[facility] LABCLIA [id number] [address] [address] [place] Methemoglobin (Bld) [Mass fraction] 0.9 % Normal 0.0-1.5 [facility] Comment on above: Order Comment: Speci men Type: ARTERIAL BLOOD SPECIMENOrdering Facility: [facility] Address: [address] [place] [id number] Performed By: #### A LLMG ####[facility] LABCLIA [id number] [place] [address] [place] Oxygen (Bld) [Partial pressure] 210 mm Hg High 85-95 [facility] Comment on above: Order Comment: Speci men Type: ARTERIAL BLOOD SPECIMENOrdering Facility: [facility] Address: [address] [place] [address] Performed By: #### A LLMG ####[facility] LABCLIA [id number] [place] [address] [place] Oxygen adjusted to patient's actual temperature (Bld) [Partial pressure] 210 mmHg High 85-95 [facility] Comment on above: Order Comment: Speci men Type: ARTERIAL BLOOD SPECIMENOrdering Facility: [facility] Address: [address] [place] [id number] Performed By: #### A LLMG ####[facility] LABCLIA [id number] [address] [address] [place] Oxyhemoglobin (BldA) [Mass fraction] 97 % Normal 95-98 [facility] [facility] Comment on above: Order Comment: Speci men Type: ARTERIAL BLOOD SPECIMENOrdering Facility: [facility] Address: [address] [id number] Performed By: #### A LLMG ####[facility] LABCLIA [id number] [place] [address] [place] pH (Bld) 7.44 [pH] Normal 7.35-7.45 [facility] Comment on above: Order Comment: Speci men Type: ARTERIAL BLOOD SPECIMENOrdering Facility: [facility] Address: [address] [place] [address] Performed By: #### A LLMG ####[facility] LABIA [id number] [place] [address] [place] pH adjusted to patient's actual temperature (Bld) 7.44 Normal 7.35-7.45 [facility] Comment on above: Order Comment: Speci men Type: ARTERIAL BLOOD SPECIMENOrdering Facility: [facility] Address: [address] [place] [address] Performed By: #### A LLMG ####[facility] LABIA [id number] [place] [address] [place] Potassium [Moles/Vol] 4.4 mmol/L Normal 3.5-5.0 [facility] Comment on above: Order Comment: Speci men Type: ARTERIAL BLOOD SPECIMENOrdering Facility: [facility] Address: [address] [place] [address] Performed By: #### A LLMG ####[facility] LABIA [id number] [place] [address] [place] Sodium [Moles/Vol] 135 mmol/L Low 136-144 [facility] Comment on above: Order Comment: Speci men Type: ARTERIAL BLOOD SPECIMENOrdering Facility: [facility] Address: [address] [place] [address] Performed By: #### A LLMG ####[facility] LABCLIA [id number] [place] [address] [place] Base deficit (BldA) [Moles/Vol] -3 mmol/L Low -2-0 [facility] Comment on above: Order Comment: Speci men Type: ARTERIAL BLOOD SPECIMENOrdering Facility: [facility] Address: [address] [place] [address] Performed By: #### A LLMG ####[facility] [id number] [place] [address] [place] Calcium.ionized (Bld) [Mass/Vol] 1.13 mmol/L Normal 1.08-1.30 [facility] Comment on above: Order Comment: Speci men Type: ARTERIAL BLOOD SPECIMENOrdering Facility: [facility] Address: [address] [place] [address] Performed By: #### A LLMG ####[facility] [id number] [place] [address] [place] Calcium.ionized adjusted to pH 7.4 (BldA) [Moles/Vol] 1.14 mmol/L Normal 1.08-1.30 [facility] Comment on above: Order Comment: Speci men Type: ARTERIAL BLOOD SPECIMENOrdering Facility: [facility] Address: [address] [place] [address] Performed By: #### A LLMG ####[facility] [id number] [place] [address] [place] Carboxyhemoglobin (BldA) [Mass fraction] 1.2 % Normal 0.0-2.0 [facility] Comment on above: Order Comment: Speci men Type: ARTERIAL BLOOD SPECIMENOrdering Facility: [facility] Address: [address] [place] [address] Result Comment: Carb oxyhemoglobin Reference Range for Smokers: 2.0-8.0% Performed By: #### A LLMG ####[facility] [id number] [place] [address] [place] CO2 (Bld) [Partial pressure] 32 mm Hg Low 36-46 [facility] Comment on above: Order Comment: Speci men Type: ARTERIAL BLOOD SPECIMENOrdering Facility: [facility] Address: [address] [place] [address] Performed By: #### A LLMG ####[facility] LABCLIA [id number] [place] [address] [place] CO2 adjusted to patient's actual temperature (Bld) [Partial pressure] 32 mmHg Low 36-46 [facility] Comment on above: Order Comment: Speci men Type: ARTERIAL BLOOD SPECIMENOrdering Facility: [facility] Address: [address] [place] [address] Performed By: #### A LLMG ####[facility] LABCLIA [id number] [place] [address] [place] Glucose [Mass/Vol] 135 mg/dL High 60-105 [facility] Comment on above: Order Comment: Speci men Type: ARTERIAL BLOOD SPECIMENOrdering Facility: [facility] Address: [address] [place] [address] Performed By: #### A LLMG ####[facility] LABCLIA [id number] [place] [address] [place] HCO3 (Bld) [Moles/Vol] 20 mmol/L Low 22-26 [facility] Comment on above: Order Comment: Speci men Type: ARTERIAL BLOOD SPECIMENOrdering Facility: [facility] Address: [address] [place] [address] Performed By: #### A LLMG ####[facility] LABCLIA [id number] [place] [address] [place] Hematocrit (Bld) [Volume fraction] 38.5 % Low 39.0-51.0 [facility] Comment on above: Order Comment: Speci men Type: ARTERIAL BLOOD SPECIMENOrdering Facility: [facility] Address: [address] [place] [address] Performed By: #### A LLMG ####[facility] LABCLIA [id number] [place] [address] [place] Hemoglobin (Bld) [Mass/Vol] 12.5 g/dL Low 13.0-17.0 [facility] Comment on above: Order Comment: Speci men Type: ARTERIAL BLOOD SPECIMENOrdering Facility: [facility] Address: [address] [place] [address] Performed By: #### A LLMG ####[facility] LABCLIA [id number] [place] [address] [place] Lactate [Moles/Vol] 1.2 mmol/L Normal 0.5-2.[address] [facility] Comment on above: Order Comment: Speci men Type: ARTERIAL BLOOD SPECIMENOrdering Facility: [facility] Address: [address] [place] [address] Performed By: #### A LLMG ####[facility] LABCLIA [id number] [place] [address] [place] Magnesium [Moles/Vol] 0.49 mmol/L Normal 0.45-0.60 [facility] Comment on above: Order Comment: Speci men Type: ARTERIAL BLOOD SPECIMENOrdering Facility: [facility] Address: [address] [place] [address] Performed By: #### A LLMG ####[facility] LABCLIA [id number] [place] [address] [place] Methemoglobin (Bld) [Mass fraction] 1.1 % Normal 0.0-1.5 [facility] Comment on above: Order Comment: Speci men Type: ARTERIAL BLOOD SPECIMENOrdering Facility: [facility] Address: [address] [place] [address] Performed By: #### A LLMG ####[facility] LABCLIA [id number] [place] [address] [place] Oxygen (Bld) [Partial pressure] 190 mm Hg High 85-95 [facility] Comment on above: Order Comment: Speci men Type: ARTERIAL BLOOD SPECIMENOrdering Facility: [facility] Address: [address] [place] [address] Performed By: #### A LLMG ####[facility] LABCLIA [id number] [place] [address] [place] Oxygen adjusted to patient's actual temperature (Bld) [Partial pressure] 190 mmHg High 85-95 [facility] Comment on above: Order Comment: Speci men Type: ARTERIAL BLOOD SPECIMENOrdering Facility: [facility] Address: [address] [place] [address] Performed By: #### A LLMG ####[facility] LABCLIA [id number] [place] [address] [place] Oxyhemoglobin (BldA) [Mass fraction] 97 % Normal 95-98 [facility] Comment on above: Order Comment: Speci men Type: ARTERIAL BLOOD SPECIMENOrdering Facility: [facility] Address: [address] [place] [address] Performed By: #### A LLMG ####[facility] LABCLIA [id number] [place] [address] [place] pH (Bld) 7.42 [pH] Normal 7.35-7.45 [facility] Comment on above: Order Comment: Speci men Type: ARTERIAL BLOOD SPECIMENOrdering Facility: [facility] Address: [address] [place] [address] Performed By: #### A LLMG ####[facility] LABCLIA [id number] [place] [address] [place] pH adjusted to patient's actual temperature (Bld) 7.42 Normal 7.35-7.45 [facility] Comment on above: Order Comment: Speci men Type: ARTERIAL BLOOD SPECIMENOrdering Facility: [facility] Address: [address] [place] [address] Performed By: #### A LLMG ####[facility] LABCLIA [id number] [address] [place] Potassium [Moles/Vol] 3.2 mmol/L Low 3.5-5.0 [facility] Comment on above: Order Comment: Speci men Type: ARTERIAL BLOOD SPECIMENOrdering Facility: [facility] Address: [address] [place] [address] Performed By: #### A LLMG ####[facility] LABCLIA [id number] [place] [address] [place] Sodium [Moles/Vol] 134 mmol/L Low 136-144 [facility] Comment on above: Order Comment: Speci men Type: ARTERIAL BLOOD SPECIMENOrdering Facility: [facility] Address: [address] [place] [address] Performed By: #### A LLMG ####[facility] LABCLIA [id number] [address] OF [facility] OPERATIVE NOon 07-03-2024 OPERATIVE NO HNO ID: [id number] Author: GANESH CRUZ MD Service: Neurosurgery Author Type: Physician Type: Operative Report Filed: 07/07/2024 14:01 Note Text: OPERATIVE/PROCEDURE REPORT LOG ID: [id number] SURGERY/PROCEDURE DATE: 07/03/2024 INCISION/PROCEDURE START TIME: 1:12 PM INCISION CLOSE/PROCEDURE END TIME: 6:24 PM SURGEON(S)/PROCEDURALIST( S) AND PIE ICER MACHINE(S): Surgeons and Role: * Ganesh Cruz MD - Primary * Jennifer Balderas MD - Resident - Assisting No Additional Staff SURGERY/PROCEDURE(S): 1) Left sided sphenofrontotemporal skull base approach with orbitotomy to approach anterior and middle fossa for skull base tumor 2) Resection of skull base tumor from anterior/middle fossa 3) Use of neuronavigation for intradural procedure 4) Use of microscope for microsurgical technique ANESTHESIA: General Indication: Patient is a very pleasant 48 year old male with history of left sphenoid wing mass on MR imaging consistent with meningioma. The lesion was noted to be causing significant mass effect and symptoms of headaches, speech difficulty, and memory changes. Given these findings, surgery for resection was offered. Following discussion of risks, benefits, and alternatives, the patient elected to proceed with the scheduled procedure. SURGERY/PROCEDURE DETAILS: The patient was identified in the preoperative holding area and was transported to the operating room, where a preoperative huddle was performed to confirm the patient identity, proposed procedure, and site of surgery. The patient was previously placed under general anesthesia prior to embolization. All lines previously placed prior to embolization procedure. All the dependent portions of the patient were padded and double checked to minimize injury. The neuro-navigation using the Zigswitch was then registered for an intradural procedure and accuracy was confirmed and tumor was mapped out. First we performed Left sided sphenofrontotemporal skull base approach with orbitotomy to approach anterior and middle fossa for skull base tumor. On the left side, a curvilinear incision was planned to provide access to the underlying tumor. The patient was then prepped and draped in the usual sterile fashion. Prior to making the incision, audible timeout was performed. Local anesthetic was inserted. Incision was made using #10 blade scalpel on the left side. Uziel clips were applied to the skin edges for hemostasis. Pericranium was preserved and raised with the galea. Subfascial dissection of the temporalis muscle was carried out with the superficial layer of fascia reflected anteriorly. The temporalis was detached from the superior temporal line and 1/2 superior posterior cut was made and muscle was reflected inferiorly to expose the root of the zygoma and keyhole for maximal bony exposure. Hemostasis was achieved. The intended craniotomy site was then marked. Pacheco holes were then placed in strategic places. Bony fragments were freed. The underlying dura was then stripped using a #3 [place]. Using a high speed air drill with guard and footplate, the craniotomy flap was then turned. The flap was carefully stripped of the dura and then held on the back table for temporary storage. Hemostasis was achieved. Tumor was localized using the preoperatively planned surgical trajectory and the intraoperative navigation system. The sphenoid wing was drilled to improve exposure to the middle fossa. The tumor was noted to invade through the dura into the left sphenoid wing. The left sphenoid wing was drilled down to the level of the superior orbital fissure in order to remove all the intraosseous tumor. We also then performed superior posterior orbitotomy to find normal orbit and aid in exposure. Orbitomeningeal band was cut and some pretemporal peeling was performed. We then performed Resection of skull base tumor from anterior/middle fossa. The dura was opened over the center of the tumor which was noted to be firm and white. The tumor was internally debulked using a combination of bipolar electrocautery, sharp dissection, and sonopet ultrasonic aspirator. Once the tumor was appropriately debulked, the dura was then opened circumferentially around the tumor. The tumor was carefully dissected free from surrounding eloquent cortex including the inferior frontal gyrus and the sylvian fissure. The tumor was noted to have invasion into the rashida over the frontal and temporal lobe. There was multiple pial parasitized vessels throughout. The tumor was noted to invade the arachnoid surrounding the MCA vessel and very adherent to M1-2. The surgical microscope was brought into the field at this time, for the remainder of the case. The MCA vessels were gently dissected free from the tumor using sharp arachnoid knife and dissectors and scissors and preserved. The tumor, overlying dura, and bone that was invaded was removed entirely. The remai (more content not included)... Normal [facility] SURGICAL PATHOLOGYon 024 ADDENDUM 1: Normal [facility] Comment on above: Order Comment: Speci men Type: TISSUE SPECIMEN [facility] Address: [address] [place], [place] [address] [address] Result Comment: Immu nohistochemical staining of the tumor (block C3) with antibody to Ki-67 was performed. An index of approximately 5-6% is focally noted. Laboratory Developed Test (LDT) Disclaimer: Performance characteristics of immunohistochemical, immunofluorescent and chromogenic in-situ hybridization tests have been determined by the performing laboratory within [facility]???s [place] [facility] and Laboratory Medicine Department ([facility], [facility], [facility], [facility], [facility], [facility], or [facility]) in a manner consistent with CLIA requirements. One or more of these tests have not been cleared or approved by the FDA. [facility] is regulated under CLIA as qualified to perform high-complexity testing. These tests are used for clinical purposes. They should not be regarded as investigational or for research. Positive and negative controls stain appropriately. MELIDA/basilio 07/10/2024 Addendum electronically signed by Ephraim Lawrence MD on 07/10/2024 at 9:58 AM Performed By: #### S #### [facility] CLIA [id number] [address] [place] [address] [place] CASE REPORT Normal [facility] Comment on above: Order Comment: Speci men Type: TISSUE SPECIMEN [facility] Address: [address] [place] [address] Result Comment: Surg [facility] Pathology Report Case: [id number] Authorizing Provider: Ganesh Cruz MD Collected: 07/03/2024 02:14 PM Ordering Location: Admitting Received: 07/03/2024 02:19 PM Pathologist: Ephraim Lawrence MD Intraop: Terri Romo MD Specimens: A) - Brain, Resection, Left skull base mass B) - Brain, Resection, Left sphenoid bone C) - Brain, Resection, Left skull base mass Performed By: #### S #### [facility] CLIA [id number] [address] [place] [address] [place] CLINICAL HISTORY Normal [facility] Comment on above: Order Comment: Speci men Type: TISSUE SPECIMEN [facility] Address: [address] [place] [address] Result Comment: Pre- op diagnosis: Meningioma (HCC) [D32.9] Performed By: #### S #### [facility] CLIA [id number] [address] [place] [address] [place] DIAGNOSIS COMMENT An addendum will be issued following immunostaining of the tumor with antibody to Ki-67. Normal [facility] Comment on above: Order Comment: Speci men Type: TISSUE SPECIMEN [facility] Address: [address] [place] [address] Performed By: #### S #### [facility] CLIA [id number] [address] [place] [address] [place] FINAL DIAGNOSIS Normal [facility] Comment on above: Order Comment: Terri shahid Type: TISSUE SPECIMEN [facility] Address: [address] [place] [address] Result Comment: A-C. Skull base and left sphenoid bone, excision: - Meningothelial meningioma, WHO Grade 1. RAP/dsh 07/07/2024 Performed By: #### S #### [facility] CLIA [id number] [address] [place] [address] OF [facility] FINAL PERFORMING LAB Normal [facility] Comment on above: Order Comment: Terri shahid Type: TISSUE SPECIMEN [facility] Address: [address] [place] [address] Result Comment: Diag nostic interpretation performed at [facility], [address] [place] [address] CLIA# [id number] Greenkeeper: Wilian Bowens M.D. Performed By: #### S #### [facility] CLIA [id number] [address] [place] [address] OF [facility] GROSS DESCRIPTION Normal [facility] Comment on above: Order Comment: Terri shahid Type: TISSUE SPECIMEN [facility] Address: [address] [place] [address] Result Comment: A. B rain, Resection Received fresh for intraoperative consultation labeled left skull base mass and with correct patient identifiers are 2 pink-aguillon white soft tissue fragments measuring in aggregate 1.6 x 1.4 x 0.7 cm. A risk control field representative section of each fragment is submitted in FS A1. The remainder are submitted in A2. Gross [place] [address] CLIA #[id number] 07/03/24 2:25 PM B. Brain, Resection Received in formalin labeled left sphenoid bone are three segments of aguillon-mercado, firm, trabecular tissue aggregating to 2.0 x 1.5 x 0.5 cm. No discrete lesions are identified. The specimen is entirely submitted in two cassettes following light decalcification in formic acid. C. Brain, Resection Received in formalin labeled left skull base mass is a 6.5 x 6.5 x 2.0 cm aggregate of aguillon-mercado, cauterized rubbery tissue. Shipfitters Supervisor sections are submitted in three cassettes. Gross examination performed at [facility], [address] [place] [address] CLIA# [id number] [facility] 07/06/24 Performed By: #### S #### [facility] CLIA [id number] [address] [place] [address] [place] INTRAOPERATIVE DIAGNOSIS Normal [facility] Comment on above: Order Comment: Speci men Type: TISSUE SPECIMEN [facility] Address: [address] [place] [address] Result Comment: Shane becker, Resection FS A1: Meningioma. (Dr. Romo) Intraoperative diagnosis performed at [facility], [address] [place] [address] CLIA# [id number] Performed By: #### S #### [facility] CLIA [id number] [address] [place] [address] [place] Basic metabolic 2000 panelon 07-02-2024 Anion gap [Moles/Vol] 10 mmol/L Normal 8-15 [facility] Comment on above: Order Comment: Speci men Type: BLOOD SPECIMENOrdering Facility: [facility] Address: [address] [place] [address] Performed By: #### 2 4321-2 ####[facility] LABCLIA [id number] [place] [address] [place] Calcium [Mass/Vol] 9.6 mg/dL Normal 8.5-10.2 [facility] Comment on above: Order Comment: Speci men Type: BLOOD SPECIMENOrdering Facility: [facility] Address: [address] [place] [address] Performed By: #### 2 4321-2 ####[facility] LABCLIA [id number] [place] [address] [place] Chloride [Moles/Vol] 102 mmol/L Normal 98-107 [facility] Comment on above: Order Comment: Speci men Type: BLOOD SPECIMENOrdering Facility: [facility] Address: [address] [place] [address] Performed By: #### 2 4321-2 ####[facility] LABCLIA [id number] [place] [address] [place] CO2 [Moles/Vol] 26 mmol/L Normal 22-30 [facility] Comment on above: Order Comment: Speci men Type: BLOOD SPECIMENOrdering Facility: [facility] Address: [address] [place] [address] Performed By: #### 2 4321-2 ####[facility] LABCLIA [id number] [place] [address] [place] Creatinine [Mass/Vol] 0.98 mg/dL Normal 0.73-1.22 [facility] Comment on above: Order Comment: Speci men Type: BLOOD SPECIMENOrdering Facility: [facility] Address: [address] [place] [address] Performed By: #### 2 4321-2 ####[facility] LABCLIA [id number] [place] [address] [place] Creatinine and Glomerular filtration rate.predicted panel (S/P/Bld) 94 mL/min/1.73m??? Normal >=60 [facility] Comment on above: Order Comment: Speci men Type: BLOOD SPECIMENOrdering Facility: [facility] Address: [address] [place] [address] Result Comment: Laquita mated Glomerular Filtration Rate (eGFR) is calculated using the 2020 CKD-EPI creatinine equation. This equation utilizes serum creatinine, sex, and age as parameters. The creatinine assay has traceable calibration to isotope dilution-mass spectrometry. Refer to KDIGO guidelines for clinical interpretation. In patients with unstable renal function, e.g. those with acute kidney injury, the eGFR may not accurately reflect actual GFR. Performed By: #### 2 4321-2 ####[facility] LABCLIA [id number] [place] [address] [place] Glucose [Mass/Vol] 89 mg/dL Normal 74-99 [facility] Comment on above: Order Comment: Speci men Type: BLOOD SPECIMENOrdering Facility: [facility] Address: [address] [place] [address] Result Comment: The [place] [employer] (ADA) provides guidance for cutoff values for fasting glucose and random glucose. The ADA defines fasting as no caloric intake for at least 8 hours. Fasting plasma glucose results between 100 to 125 mg/dL indicate increased risk for diabetes (prediabetes). Fasting plasma glucose results greater than or equal to 126 mg/dL meet the criteria for diagnosis of diabetes. In the absence of unequivocal hyperglycemia, results should be confirmed by repeat testing. In a patient with classic symptoms of hyperglycemia or hyperglycemic crisis, random plasma glucose results greater than or equal to 200 mg/dL meet the criteria for diagnosis of diabetes. Reference: Standards of Medical Care in Diabetes 2016, [place] [employer]. Diabetes Care. 2016.39(Suppl 1). Performed By: #### 2 4321-2 ####[facility] LABIA [id number] [place] [address] [place] Potassium [Moles/Vol] 4.3 mmol/L Normal 3.7-5.1 [facility] Comment on above: Order Comment: Speci men Type: BLOOD SPECIMENOrdering Facility: [facility] Address: [address] [place] [address] Performed By: #### 2 4321-2 ####[facility] LABIA [id number] [place] [address] [place] Sodium [Moles/Vol] 138 mmol/L Normal 136-144 [facility] Comment on above: Order Comment: Speci men Type: BLOOD SPECIMENOrdering Facility: [facility] Address: [address] [place] [address] Performed By: #### 2 4321-2 ####[facility] LABCLIA [id number] [place] [address] [place] Urea nitrogen [Mass/Vol] 15 mg/dL Normal 9-24 [facility] Comment on above: Order Comment: Speci men Type: BLOOD SPECIMENOrdering Facility: [facility] Address: [address] [place] [address] Performed By: #### 2 4321-2 ####[facility] LABCLIA [id number] [place] [address] [place] CBC W Auto Differential pane l (Bld)on 07-02-2024 Basophils (Bld) [#/Vol] 10*3/uL Normal <0.11 [facility] Comment on above: Order Comment: Speci men Type: BLOOD SPECIMENOrdering Facility: [facility] Address: [address] [place] [address] Performed By: #### 5 7021-8 ####[facility] LABCLIA [id number] [place] [address] [place] Basophils/100 WBC (Bld) 0.0 % Normal [facility] Comment on above: Order Comment: Speci men Type: BLOOD SPECIMENOrdering Facility: [facility] Address: [address] [place] [address] Performed By: #### 5 7021-8 ####[facility] LABCLIA [id number] [place] [address] [place] Differential cell count method Nom (Bld) Auto Normal [facility] Comment on above: Order Comment: Speci men Type: BLOOD SPECIMENOrdering Facility: [facility] Address: [address] [place] [address] Performed By: #### 5 7021-8 ####[facility] LABCLIA [id number] [place] [address] [place] Eosinophils (Bld) [#/Vol] 0.18 10*3/uL Normal <0.46 [facility] Comment on above: Order Comment: Speci men Type: BLOOD SPECIMENOrdering Facility: [facility] Address: [address] [place] [address] Performed By: #### 5 7021-8 ####[facility] LABIA [id number] [place] [address] [place] Eosinophils/100 WBC (Bld) 2.4 % Normal [facility] Comment on above: Order Comment: Speci men Type: BLOOD SPECIMENOrdering Facility: [facility] Address: [address] [place] [address] Performed By: #### 5 7021-8 ####[facility] LABIA [id number] [place] [address] [place] Erythrocyte distribution width (RBC) [Ratio] 12.6 % Normal 11.5-15.0 [facility] Comment on above: Order Comment: Speci men Type: BLOOD SPECIMENOrdering Facility: [facility] Address: [address] [place] [address] Performed By: #### 5 7021-8 ####[facility] LABIA [id number] [place] [address] [place] Hematocrit (Bld) [Volume fraction] 42.9 % Normal 39.0-51.0 [facility] Comment on above: Order Comment: Speci men Type: BLOOD SPECIMENOrdering Facility: [facility] Address: [address] [place] [address] Performed By: #### 5 7021-8 ####[facility] LABIA [id number] [place] [address] [place] Hemoglobin (Bld) [Mass/Vol] 14.6 g/dL Normal 13.0-17.0 [facility] Comment on above: Order Comment: Speci men Type: BLOOD SPECIMENOrdering Facility: [facility] Address: [address] [place] [address] Performed By: #### 5 7021-8 ####[facility] LABCLIA [id number] [place] [address] [place] Immature granulocytes (Bld) [#/Vol] 10*3/uL Normal <0.10 [facility] Comment on above: Order Comment: Speci men Type: BLOOD SPECIMENOrdering Facility: [facility] Address: [address] [place] [address] Performed By: #### 5 7021-8 ####[facility] LABCLIA [id number] [place] [address] [place] Immature granulocytes/100 WBC (Bld) 0.3 % Normal [facility] Comment on above: Order Comment: Speci men Type: BLOOD SPECIMENOrdering Facility: [facility] Address: [address] [place] [address] Performed By: #### 5 7021-8 ####[facility] LABCLIA [id number] [place] [address] [place] Lymphocytes (Bld) [#/Vol] 1.79 10*3/uL Normal 1.00-4.00 [facility] Comment on above: Order Comment: Speci men Type: BLOOD SPECIMENOrdering Facility: [facility] Address: [address] [place] [address] Performed By: #### 5 7021-8 ####[facility] LABCLIA [id number] [place] [address] [place] Lymphocytes/100 WBC (Bld) 23.9 % Normal [facility] Comment on above: Order Comment: Speci men Type: BLOOD SPECIMENOrdering Facility: [facility] Address: [address] [place] [address] Performed By: #### 5 7021-8 ####[facility] LABCLIA [id number] [place] [address] [place] MCH (RBC) [Entitic mass] 30.6 pg Normal 26.0-34.0 [facility] Comment on above: Order Comment: Speci men Type: BLOOD SPECIMENOrdering Facility: [facility] Address: [address] [place] [address] Performed By: #### 5 7021-8 ####[facility] LABCLIA [id number] [place] [address] [place] MCHC (RBC) [Mass/Vol] 34.0 g/dL Normal 30.5-36.0 [facility] Comment on above: Order Comment: Speci men Type: BLOOD SPECIMENOrdering Facility: [facility] Address: [address] [place] [address] Performed By: #### 5 7021-8 ####[facility] LABIA [id number] [place] [address] [place] MCV (RBC) [Entitic vol] 89.9 fL Normal 80.0-100.0 [facility] Comment on above: Order Comment: Speci men Type: BLOOD SPECIMENOrdering Facility: [facility] Address: [address] [address] Performed By: #### 5 7021-8 ####[facility] LABIA [id number] [place] [address] [place] Monocytes (Bld) [#/Vol] 0.52 10*3/uL Normal <0.87 [facility] Comment on above: Order Comment: Speci men Type: BLOOD SPECIMENOrdering Facility: [facility] Address: [address] [place] [address] Performed By: #### 5 7021-8 ####[facility] LABIA [id number] [place] [address] [place] Monocytes/100 WBC (Bld) 6.9 % Normal [facility] Comment on above: Order Comment: Speci men Type: BLOOD SPECIMENOrdering Facility: [facility] Address: [address] [place] [address] Performed By: #### 5 7021-8 ####[facility] LABCLIA [id number] [place] [address] [place] Neutrophils (Bld) [#/Vol] 4.98 10*3/uL Normal 1.45-7.50 [facility] Comment on above: Order Comment: Speci men Type: BLOOD SPECIMENOrdering Facility: [facility] Address: [address] [place] [address] Performed By: #### 5 7021-8 ####[facility] LABCLIA [id number] [place] [address] [place] Neutrophils/100 WBC (Bld) 66.5 % Normal [facility] Comment on above: Order Comment: Speci men Type: BLOOD SPECIMENOrdering Facility: [facility] Address: [address] [place] [address] Performed By: #### 5 7021-8 ####[facility] LABCLIA [id number] [place] [address] [place] Nucleated RBC (Bld) [#/Vol] 10*3/uL Normal <0.01 [facility] Comment on above: Order Comment: Speci men Type: BLOOD SPECIMENOrdering Facility: [facility] Address: [address] [place] [address] Performed By: #### 5 7021-8 ####[facility] LABCLIA [id number] [place] [address] [place] Nucleated RBC/100 WBC (Bld) [Ratio] 0.0 /100 WBC Normal [facility] Comment on above: Order Comment: Speci men Type: BLOOD SPECIMENOrdering Facility: [facility] Address: [address] [place] [address] Performed By: #### 5 7021-8 ####[facility] LABCLIA [id number] [place] [address] [place] Platelet mean volume (Bld) [Entitic vol] 11.2 fL Normal 9.0-12.7 [facility] Comment on above: Order Comment: Speci men Type: BLOOD SPECIMENOrdering Facility: [facility] Address: [address] [place] [address] Performed By: #### 5 7021-8 ####[facility] LABIA [id number] [place] [address] [place] Platelets (Bld) [#/Vol] 184 10*3/uL Normal 150-400 [facility] Comment on above: Order Comment: Speci men Type: BLOOD SPECIMENOrdering Facility: [facility] Address: [address] [place] [address] Performed By: #### 5 7021-8 ####[facility] LABIA [id number] [place] [address] [place] RBC (Bld) [#/Vol] 4.77 10*6/uL Normal 4.20-6.[address] [facility] Comment on above: Order Comment: Speci men Type: BLOOD SPECIMENOrdering Facility: [facility] Address: [address] [place] [address] Performed By: #### 5 7021-8 ####[facility] LABIA [id number] [place] [address] [place] WBC (Bld) [#/Vol] 7.49 10*3/uL Normal 3.70-11.[address] [facility] Comment on above: Order Comment: Speci men Type: BLOOD SPECIMENOrdering Facility: [facility] Address: [address] [place] [address] Performed By: #### 5 7021-8 ####[facility] LABIA [id number] [place] [id number] [place] CNNURSEon 07-02-2024 CNNURSE Nurse Visit (NSCAMN) ----- JENN FAN ([id number]) 1975 M Date Time Provider Department 07/02/24 10:30 AM [facility] During your visit today, we recorded the following information about you: Jil Graham RN 07/03/2024 8:23 AM Signed DISCIPLINE: NURSING DIAGNOSIS Meningioma PROCEDURE/SURGERY:Craniot sergio on 07/03/[address] Ganesh Cruz PATIENT READINESS TO LEARN MOTIVATION TO LEARN: Eager *SUPPORT High *COGNITIVE ABILITYAlert and oriented *INFLUENCING FACTORS* None *PHYSICAL LIMITATIONS* None *LEARNING PREFERENCES* : PT. LEARNS BEST BY: Individual Instruction INSTRUCTIONS PROVIDED TO: Patient and CONTENT The following supplemental materials were given in written form to the patient in a folder at a previous visit and reviewed with the patient at this visit : - Your Surgical Guide Booklet -[facility] Teaching sheet for Deep Vein Thrombosis (DVT) -FAQ's about Surgical Site Infections -Medication Stoppage (Medications/Vitamins/OTC ) prior to surgery -Patient information: Reducing surgical site infections -Dr. Cruz - Postoperative instructions IRB#[id number] Genetic and Molecular Analysis of Tumors of the Central Nervous System and their Coverings. A copy of the consent form was given to patient on 07/02/24. Discussed with patient all risks, benefits, and alternatives with good understanding. Questions concerning enrollment were answered. Patient has read the informed consent. Patient states understanding and has agreed to participate on 07/02/24 at ~1100. Informed consent obtained and copy given to the patient. *PATIENT EVALUATION* Verbalizes Understanding *FOLLOW UP PLAN* COMPLETE No Need for Follow Up Jil Graham Pager [phone] Referring Provider: GANESH CRUZ [[id number]] Allergies As of Date: 07/02/2024 (No Known Allergies) Date Reviewed: 07/02/2024 Reviewed by: Anderson Krueger RN - Fully Assessed Primary Visit Diagnosis:Brain mass [G93.89] Prescriptions as of 07/03/2024 - MULTIVITAMIN ORAL Take by mouth. Problem List As Of Date: 07/02/2024 (None) Encounter Status:Closed by JIL GRAHAM on 07/03/24 Normal [facility] CONFIRM BLOOD TYPEon 024 ABO O Normal [facility] Comment on above: Order Comment: Speci men Type: BLOOD SPECIMEN [facility] Address: [address] [place] [address] Performed By: #### T SCR30 #### [facility] CLIA [id number] [address] [place] [address] [place] Rh Nom (Bld) Positive Normal [facility] Comment on above: Order Comment: Speci men Type: BLOOD SPECIMEN [facility] Address: [address] [place] [address] Performed By: #### T SCR30 #### [facility] CLIA [id number] [address] [place] [address] [place] CTA HEAD WO/W IVCONon 2023 CTA HEAD WO/W IVCON * * *Final Report* * * DATE OF EXAM: Jul 02 2024 3:56PM [facility] 0023 - CTA HEAD WO/W IVCON / PROCEDURE REASON: Meningioma (HCC) * * * * Physician Interpretation * * * * EXAMINATION: CTA HEAD WO/W IVCON HISTORY: Meningioma (HCC) TECHNIQUE: Routine CT of the brain without IV contrast. Next, spiral high resolution axial images were obtained through the head following bolus administration of intravenous contrast for CT angiography. 3D maximum intensity projection images were created, reviewed and archived . MQ: CTABPlus_4 Contrast: 80 mL Omnipaque [address] Radiation dose: Integrated Dose-Length Product (DLP) for this visit = 1368 mGy*cm. CT Dose Reduction Employed: No dose reduction techniques were required COMPARISON: Same-day brain MRI. Outside brain MRI 05/27/2024.. RESULT: Acute change: No evidence of an acute infarct or other acute parenchymal process. ASPECT Score = 10 Hemorrhage: No evidence of acute intracranial hemorrhage. ECASS hemorrhagic transformation score: Not Applicable Mass Effect / Mass Lesion: Hyperdense extra-axial dural based mass over the left anterolateral frontal convexity, measuring approximately 5.1 x 3.9 cm in maximal oblique transaxial dimensions, and 4.4 cm in craniocaudal dimension, grossly similar to the prior outside MRI within constraints of technical differences, and no definite contrast on board on the prior outside images. Lesion slightly extends to the anterior aspect of left middle cranial fossa. Mass effect upon the adjacent left frontal and temporal lobes, with moderate effacement, and surrounding marked vasogenic edema throughout the left frontal lobe, extending to the left external capsule and left anterior corpus callosum, perhaps slightly decreased from prior at the superior posterior aspect. No substantial edema in the adjacent temporal lobe. Associated sulcal effacement, marked effacement of the left lateral ventricle, and rightward midline shift as well as subfalcine herniation, measuring up to 1.8 cm, similar to prior. Chronic change: None apparent. Parenchyma: There is no significant volume loss. Ventricles: Marked effacement of left lateral ventricle. Effacement of the third ventricle. Dilation of the right lateral ventricle, likely reflecting entrapment. Stable ventricular caliber and configuration since 05/27/2024. Other: The visualized paranasal sinuses are grossly clear. The skull and visualized extracranial soft tissues are grossly normal. ARTERIOGRAM: Acute Stroke on CTA: Evaluation of the individual slices of the CTA demonstrates no evidence of an acute stroke. Anterior Circulation: Bilateral distal cervical and intracranial ICAs are patent. Bilateral ACAs are patent, with codominant A1 segment. Mild right laterally deviated appearance of the ACAs bilaterally due to the mass effect described above, without significant stenosis. Bilateral MCAs are patent. Left distal M1 segment, and left M2 proximal superior division courses immediately along the posterior margin of the mass, without significant stenosis, and with mild posterior displacement. Vertebrobasilar Circulation: Bilateral visualized distal cervical and intradural vertebral arteries are patent, right dominant. Bilateral proximal PICA are patent. Basilar artery, and supracerebellar arteries are patent. configuration of bilateral education finance processor, which are otherwise patent. No proximal large vessel occlusion or focal high-grade stenosis. Venous: Opacified dural venous sinuses and deep structures are grossly patent. Carding Doubler (topogram) images: No additional findings. IMPRESSION: Stable large left frontal/temporal convexity extra-axial mass measuring up to 5 cm, most likely reflecting meningioma. Large amount of surrounding vasogenic edema, and stable associated mass effect, including rightward midline shift and subfalcine shift measuring up to 1.8 cm, marked effacement of left lateral ventricle, and stable dilation of right lateral ventricle. Left distal M1 and left M2 superior division branches course immediately along posterior aspect of the lesion, with mild posterior displacement, but no significant narrowing. Rightward deviation of the JAMI branches due to the mass effect. Otherwise patent intracranial arterial vasculature. Arterial blood flow was measured to detect acute large vessel occlusion by computer aided detection software: Not Performed. Concordance between software and imaging review: Not Applicable. Pick Pack Worker: [email or web address] Transcribe Date/Time: Jul 02 2024 4:56P Dictated by : KALIN DUNBAR MD This examination was interpreted and the report reviewed and electronically signed by: SUSI BERRIOS MD on Jul 02 2024 6:18PM EST [id number] Normal [facility] CTA Head vessels WO and W co ntrast Derik 07-02-2024 IMPRESSION: Stable large left frontal/temporal convexity extra-axial mass measuring up to 5 cm, most likely reflecting meningioma. Large amount of surrounding vasogenic edema, and stable associated mass effect, including rightward midline shift and subfalcine shift measuring up to 1.8 cm, marked effacement of left lateral ventricle, and stable dilation of right lateral ventricle. Left distal M1 and left M2 superior division branches course immediately along posterior aspect of the lesion, with mild posterior displacement, but no significant narrowing. Rightward deviation of the JAMI branches due to the mass effect. Otherwise patent intracranial arterial vasculature. Arterial blood flow was measured to detect acute large vessel occlusion by computer aided detection software: Not Performed. Concordance between software and imaging review: Not Applicable. Pick Pack Worker: [email or web address] Transcribe Date/Time: Jul 02 2024 4:56P Dictated by : KALIN DUNBAR MD This examination was interpreted and the report reviewed and electronically signed by: SUSI BERRIOS MD on Jul 02 2024 6:18PM EST DIVISION OF RADIOLOGY * * *Final Report* * * DATE OF EXAM: Jul 02 2024 3:56PM [facility] 0023 - CTA HEAD WO/W IVCON / PROCEDURE REASON: Meningioma (HCC) * * * * Physician Interpretation * * * * EXAMINATION: CTA HEAD WO/W IVCON HISTORY: Meningioma (HCC) TECHNIQUE: Routine CT of the brain without IV contrast. Next, spiral high resolution axial images were obtained through the head following bolus administration of intravenous contrast for CT angiography. 3D maximum intensity projection images were created, reviewed and archived . MQ: CTABPlus_4 Contrast: 80 mL Omnipaque [address] Radiation dose: Integrated Dose-Length Product (DLP) for this visit = 1368 mGy*cm. CT Dose Reduction Employed: No dose reduction techniques were required COMPARISON: Same-day brain MRI. Outside brain MRI 05/27/2024.. RESULT: Acute change: No evidence of an acute infarct or other acute parenchymal process. ASPECT Score = 10 Hemorrhage: No evidence of acute intracranial hemorrhage. ECASS hemorrhagic transformation score: Not Applicable Mass Effect / Mass Lesion: Hyperdense extra-axial dural based mass over the left anterolateral frontal convexity, measuring approximately 5.1 x 3.9 cm in maximal oblique transaxial dimensions, and 4.4 cm in craniocaudal dimension, grossly similar to the prior outside MRI within constraints of technical differences, and no definite contrast on board on the prior outside images. Lesion slightly extends to the anterior aspect of left middle cranial fossa. Mass effect upon the adjacent left frontal and temporal lobes, with moderate effacement, and surrounding marked vasogenic edema throughout the left frontal lobe, extending to the left external capsule and left anterior corpus callosum, perhaps slightly decreased from prior at the superior posterior aspect. No substantial edema in the adjacent temporal lobe. Associated sulcal effacement, marked effacement of the left lateral ventricle, and rightward midline shift as well as subfalcine herniation, measuring up to 1.8 cm, similar to prior. Chronic change: None apparent. Parenchyma: There is no significant volume loss. Ventricles: Marked effacement of left lateral ventricle. Effacement of the third ventricle. Dilation of the right lateral ventricle, likely reflecting entrapment. Stable ventricular caliber and configuration since 05/27/2024. Other: The visualized paranasal sinuses are grossly clear. The skull and visualized extracranial soft tissues are grossly normal. ARTERIOGRAM: Acute Stroke on CTA: Evaluation of the individual slices of the CTA demonstrates no evidence of an acute stroke. Anterior Circulation: Bilateral distal cervical and intracranial ICAs are patent. Bilateral ACAs are patent, with codominant A1 segment. Mild right laterally deviated appearance of the ACAs bilaterally due to the mass effect described above, without significant stenosis. Bilateral MCAs are patent. Left distal M1 segment, and left M2 proximal superior division courses immediately along the posterior margin of the mass, without significant stenosis, and with mild posterior displacement. Vertebrobasilar Circulation: Bilateral visualized distal cervical and intradural vertebral arteries are patent, right dominant. Bilateral proximal PICA are patent. Basilar artery, and supracerebellar arteries are patent. configuration of bilateral education finance processor, which are otherwise patent. No proximal large vessel occlusion or focal high-grade stenosis. Venous: Opacified dural venous sinuses and deep structures are grossly patent. Carding Doubler (topogram) images: No additional findings. DIVISION OF RADIOLOGY Provider, [facility] - 07/02/2024 * * *Final Report* * * DATE OF EXAM: Jul 02 2024 3:56PM [facility] 0023 - CTA HEAD WO/W IVCON / PROCEDURE REASON: Meningioma (HCC) * * * * Physician Interpretation * * * * EXAMINATION: CTA HEAD WO/W IVCON HISTORY: Meningioma (HCC) TECHNIQUE: Routine CT of the brain without IV contrast. Next, spiral high resolution axial images were obtained through the head following bolus administration of intravenous contrast for CT angiography. 3D maximum intensity projection images were created, reviewed and archived . MQ: CTABPlus_4 Contrast: 80 mL Omnipaque [address] Radiation dose: Integrated Dose-Length Product (DLP) for this visit = 1368 mGy*cm. CT Dose Reduction Employed: No dose reduction techniques were required COMPARISON: Same-day brain MRI. Outside brain MRI 05/27/2024.. RESULT: Acute change: No evidence of an acute infarct or other acute parenchymal process. ASPECT Score = 10 Hemorrhage: No evidence of acute intracranial hemorrhage. ECASS hemorrhagic transformation score: Not Applicable Mass Effect / Mass Lesion: Hyperdense extra-axial dural based mass over the left anterolateral frontal convexity, measuring approximately 5.1 x 3.9 cm in maximal oblique transaxial dimensions, and 4.4 cm in craniocaudal dimension, grossly similar to the prior outside MRI within constraints of technical differences, and no definite contrast on board on the prior outside images. Lesion slightly extends to the anterior aspect of left middle cranial fossa. Mass effect upon the adjacent left frontal and temporal lobes, with moderate effacement, and surrounding marked vasogenic edema throughout the left frontal lobe, extending to the left external capsule and left anterior corpus callosum, perhaps slightly decreased from prior at the superior posterior aspect. No substantial edema in the adjacent temporal lobe. Associated sulcal effacement, marked effacement of the left lateral ventricle, and rightward midline shift as well as subfalcine herniation, measuring up to 1.8 cm, similar to prior. Chronic change: None apparent. Parenchyma: There is no significant volume loss. Ventricles: Marked effacement of left lateral ventricle. Effacement of the third ventricle. Dilation of the right lateral ventricle, likely reflecting entrapment. Stable ventricular caliber and configuration since 05/27/2024. Other: The visualized paranasal sinuses are grossly clear. The skull and visualized extracranial soft tissues are grossly normal. ARTERIOGRAM: Acute Stroke on CTA: Evaluation of the individual slices of the CTA demonstrates no evidence of an acute stroke. Anterior Circulation: Bilateral distal cervical and intracranial ICAs are patent. Bilateral ACAs are patent, with codominant A1 segment. Mild right laterally deviated appearance of the ACAs bilaterally due to the mass effect described above, without significant stenosis. Bilateral MCAs are patent. Left distal M1 segment, and left M2 proximal superior division courses immediately along the posterior margin of the mass, without significant stenosis, and with mild posterior displacement. Vertebrobasilar Circulation: Bilateral visualized distal cervical and intradural vertebral arteries are patent, right dominant. Bilateral proximal PICA are patent. Basilar artery, and supracerebellar arteries are patent. configuration of bilateral education finance processor, which are otherwise patent. No proximal large vessel occlusion or focal high-grade stenosis. Venous: Opacified dural venous sinuses and deep structures are grossly patent. Carding Doubler (topogram) images: No additional findings. IMPRESSION IMPRESSION: Stable large left frontal/temporal convexity extra-axial mass measuring up to 5 cm, most likely reflecting meningioma. Large amount of surrounding vasogenic edema, and stable associated mass effect, including rightward midline shift and subfalcine shift measuring up to 1.8 cm, marked effacement of left lateral ventricle, and stable dilation of right lateral ventricle. Left distal M1 and left M2 superior division branches course immediately along posterior aspect of the lesion, with mild posterior displacement, but no significant narrowing. Rightward deviation of the JAMI branches due to the mass effect. Otherwise patent intracranial arterial vasculature. Arterial blood flow was measured to detect acute large vessel occlusion by computer aided detection software: Not Performed. Concordance between software and imaging review: Not Applicable. Pick Pack Worker: SYDNEY Transcribe Date/Time: Jul 02 2024 4:56P Dictated by : KALIN DUNBAR MD This examination was interpreted and the report reviewed and electronically signed by: SUSI BERRIOS MD on Jul 02 2024 6:18PM EST [facility] Radiology Study observation (narrative) [facility] CTA Head vessels WO and W co ntrast IVOrdered By: Ccf Provider on 07-02-2024 [facility] ECG COMPLETEon 07-02-2024 ECG COMPLETE Ventricular Rate : 7 1 BPM Atrial Rate : 71 BPM P-R Interval : 152 ms QRS Duration : 88 ms Q-T Interval : 378 ms QTC Calculation(Bazett) : 410 ms Calculated P [place] : 32 degrees Calculated R [place] : 13 degrees Calculated T [place] : 33 degrees NORMAL SINUS RHYTHM NORMAL ECG Confirmed by MELODY BUTT MD ([id number]) on 07/10/2024 9:59:25 AM NAME : JENN FAN PID : [id number] : 1975 Gender : Male Race : ORD : [id number] Procedure Date : Jul 02 2024 13:06:01 Edit Date : Jul 10 2024 09:59:26 Diagnosis: NORMAL SINUS RHYTHM NORMAL ECG Confirmed by MELODY BUTT MD ([id number]) on 07/10/2024 9:59:25 AM Test Reason : Location : 119 : A17 A17 Overread By : MELODY BUTT MD Edited By : MELODY BUTT MD Referred By : DOMINIK DOWELL Acquired by : FUAD EDWARDS [facility] HISTORY PHYSICALon HISTORY PHYSICAL HNO ID: [id number] Author: DOMINIK DOWELL PA-C Service: ? Author Type: Physician Sweatband Drummer Type: H&P Filed: 07/02/2024 12:26 Note Text: [facility] HISTORY AND PHYSICAL EXAMINATION SERVICE DATE: 07/02/2024 SERVICE TIME: 11:57 AM PRIMARY CARE PHYSICIAN: Davin Montana, DO Assessment There is no known pertinent medical condition which may affect heber-operative course Biggs Activity Status Index: METS: Climb a flight of stairs or walk up a hill (5.50 METs) DASI Score: 5.5 Patient denies any chest pain or undue shortness of breath with the above physical activity. Clinical Frailty Scale: 2. Well STOP-Bang Score: Male patient Denies snoring loudly Denies feeling tired, fatigued, or sleepy during the daytime Has not been observed to stop breathing or choking/gasping during sleep Denies having high blood pressure BMI less than or equal to 35 kg/m2 Patient 50 years old or younger Does not have a large neck STOP-Bang Score: 1 ANESTHESIA FINDINGS: Intubation History: No history of difficult intubation. No abnormal airway history Significant Anesthesia Considerations: none Airway History: No history of difficult airway No abnormal airway history I - PHYSICAL EVALUATION AIRWAY Patient intubated: No. Tracheostomy tube not present Mallampati: IV. TM distance: >3 FB. Neck ROM: full ROM without neurological symptoms. Mouth opening: adequate. Short neck: no. Thick neck: no Lip Bite Test: II Microretrognathia/Microna gthia/Recessed Chin: No DENTAL Dental findings: missing tooth/teeth. Additional comments: +caps. II - ANESTHESIA PLAN Anesthetic plan additional comments: *[facility] - anesthesia choice. Beta Nik Monitoring Plan Post Procedure Analgesic Plan Prepared for Surgery: optimally prepared for surgery, pending day of surgery. EKG, labs. Patient seen in [facility] the day prior to surgery. CONSULTS: Patient does not require consults for optimization at this time Planned Anesthetic: anesthesia choice The Following Tests/Procedures Have Been Initiated: EKG, labs REASON FOR VISIT: Jenn Fan is a 48 year old male who is scheduled for Procedure(s): ORBITOCRANIAL ZYGOMATIC APPROACH TO MID CRANI-FOSSA OSTEOTOMY W/ ELEVATE TEMPORAL LOBE (Left) RESECTION LESION BASE OF POSTERIOR CRANIAL FOSSA INTRADURAL W/ REPAIR (Left) STEREOTACTIC COMPUTER-ASSISTED NAVIGATIONAL PROCEDURE CRANIAL (N/A) MICROSURGICAL TECHNIQUES REQUIRING MICROSCOPE (N/A) at the request of Ganesh Vargas MD for consultation. My final recommendation will be communicated back to the requesting physician by way of shared medical record or letter. Subjective The patient has the following: COVID-19 Immunization Status Overdue - Covid-19 Vaccine ( season) Never done No completion, postpone, frequency change, or communication history exists for this topic. CHIEF COMPLAINT: Meningioma (HCC) [D32.9] HPI: Jenn Fan is a 48 year old male who presents to [facility] today for preop exam. Patient is scheduled for the above procedure tomorrow 07/03/24. Patient started experiencing headaches over the past 3 months which prompted him to follow up OP with PCP and had MRI that showed a large left fronto-temporal tumor. Patient was started on decadron which he did not tolerate. Denies seizures. Denies fevers, chills, chest pain, and SOB. REVIEW OF SYSTEMS: General: Negative for: fever. Neurological: Positive for: headaches. Negative for: seizures, TIA and strokes. Respiratory: Negative for: asthma, COPD, current cough, pneumonia within 6 weeks, tobacco use, URI < 2 weeks and obstructive sleep apnea. Cardiovascular: Negative for: angina, anticoagulation therapy, arrhythmia, atrial fibrillation, CAD, chest pain, CHF, congenital heart defect, DVT/PE, hyperlipidemia, hypertension, recent MO and murmur/valvular heart disease. GI: Negative for: abdominal pain, dysphagia, GERD, heartburn, hepatitis, liver disease, nausea and vomiting. : Negative for: on dialysis, dysuria, frequent urination, hematuria, nephrolithiasis and renal failure. Endocrine: Negative for: diabetes mellitus, hyperthyroidism, hypothyroidism and steroid for chronic problem. Hematology: No history of bleeding or clotting disorder. Patient is not taking anti-coagulation or platelet medications. No history of hematological symptoms or problems. Oncology: No history of CA metastasis, chemo within 30 days, or radiotherapy within 90 days. No history of oncological symptoms or problems. Musculoskeletal: Negative for joint pain or swelling, back pain or muscle pain. Skin: Negative for lesions, rash and itching. History reviewed. No pertinent past medical history. PAST SURGICAL HISTORY No date: TONSILLECTOMY HX Comment: and adenoids at age 8 FAMILY HISTORY Problem Relation Age of Onset Anesthesia Problems No Family (more content not included)... Normal [facility] MR Guidance for stereotactic localization of Brain-- W contrast Derik 07-02-2024 IMPRESSION: Large 53 mm extra axial dural based enhancing lesion in the left frontal and temporal convexity, compatible with meningioma. Associated significant mass effect with effacement of the ventricle, 60 mm rightward midline shift and mild rightward subfalcine herniation. Pick Pack Worker: SYDNEY Transcribe Date/Time: Jul 02 2024 7:42P Dictated by : SHYAM ATKINS MD This examination was interpreted and the report reviewed and electronically signed by: SHYAM ATKINS MD on Jul 02 2024 7:48PM [facility] DIVISION OF RADIOLOGY * * *Final Report* * * DATE OF EXAM: Jul 02 2024 4:50PM [facility] 0289 - MRI BRAIN LOCAL W IVCON / PROCEDURE REASON: Meningioma (HCC) * * * * Physician Interpretation * * * * EXAMINATION: MRI BRAIN LOCAL W IVCON HISTORY: Other (document in comments) Meningioma (HCC) TECHNIQUE: High resolution, axial gradient echo volume acquisition was performed of the head with and without intravenous gadolinium for preoperative localization. Supplemental: None Contrast: 16 mL Dotarem IV COMPARISON: Head CT 07/02/2024. RESULT: There is a large 53 x 37 x 50 mm (AP, TV SI) extra axial dural based enhancing lesion along the left frontal convexity and extending to the left middle cranial fossa. There is some extension into the left anterior cranial fossa with abutment of the left gyrus rectus. There is adjacent marked surrounding vasogenic edema. There is significant mass effect on the left frontal lobe with partial effacement of the frontal horn and body left lateral ventricle and near complete effacement of the temporal horn of the left lateral ventricle as well as the third ventricle. There is also a 16 mm rightward midline shift with mild rightward subfalcine herniation. There is otherwise normal brain parenchyma. There is no additional mass or abnormal enhancement. The extra cranial soft tissues are within normal limits. The orbits are within normal limits. DIVISION OF RADIOLOGY Provider, [facility] - 07/02/2024 * * *Final Report* * * DATE OF EXAM: Jul 02 2024 4:50PM [facility] 0289 - MRI BRAIN LOCAL W IVCON / PROCEDURE REASON: Meningioma (HCC) * * * * Physician Interpretation * * * * EXAMINATION: MRI BRAIN LOCAL W IVCON HISTORY: Other (document in comments) Meningioma (HCC) TECHNIQUE: High resolution, axial gradient echo volume acquisition was performed of the head with and without intravenous gadolinium for preoperative localization. Supplemental: None Contrast: 16 mL Dotarem IV COMPARISON: Head CT 07/02/2024. RESULT: There is a large 53 x 37 x 50 mm (AP, TV SI) extra axial dural based enhancing lesion along the left frontal convexity and extending to the left middle cranial fossa. There is some extension into the left anterior cranial fossa with abutment of the left gyrus rectus. There is adjacent marked surrounding vasogenic edema. There is significant mass effect on the left frontal lobe with partial effacement of the frontal horn and body left lateral ventricle and near complete effacement of the temporal horn of the left lateral ventricle as well as the third ventricle. There is also a 16 mm rightward midline shift with mild rightward subfalcine herniation. There is otherwise normal brain parenchyma. There is no additional mass or abnormal enhancement. The extra cranial soft tissues are within normal limits. The orbits are within normal limits. IMPRESSION IMPRESSION: Large 53 mm extra axial dural based enhancing lesion in the left frontal and temporal convexity, compatible with meningioma. Associated significant mass effect with effacement of the ventricle, 60 mm rightward midline shift and mild rightward subfalcine herniation. Pick Pack Worker: SYDNEY Transcribe Date/Time: Jul 02 2024 7:42P Dictated by : SHYAM ATKINS MD This examination was interpreted and the report reviewed and electronically signed by: SHYAM ATKINS MD on Jul 02 2024 7:48PM EST [facility] Radiology Study observation (narrative) [facility] MR Guidance for stereotactic localization of Brain-- W contrast IVOrdered By: Ccf Provider on 07-02-2024 [facility] MRI BRAIN LOCAL W IVCONon MRI BRAIN LOCAL W IVCON * * *Final Report* * * DATE OF EXAM: Jul 02 2024 4:50PM [facility] 0289 - MRI BRAIN LOCAL W IVCON / PROCEDURE REASON: Meningioma (HCC) * * * * Physician Interpretation * * * * EXAMINATION: MRI BRAIN LOCAL W IVCON HISTORY: Other (document in comments) Meningioma (HCC) TECHNIQUE: High resolution, axial gradient echo volume acquisition was performed of the head with and without intravenous gadolinium for preoperative localization. Supplemental: None Contrast: 16 mL Dotarem IV COMPARISON: Head CT 07/02/2024. RESULT: There is a large 53 x 37 x 50 mm (AP, TV SI) extra axial dural based enhancing lesion along the left frontal convexity and extending to the left middle cranial fossa. There is some extension into the left anterior cranial fossa with abutment of the left gyrus rectus. There is adjacent marked surrounding vasogenic edema. There is significant mass effect on the left frontal lobe with partial effacement of the frontal horn and body left lateral ventricle and near complete effacement of the temporal horn of the left lateral ventricle as well as the third ventricle. There is also a 16 mm rightward midline shift with mild rightward subfalcine herniation. There is otherwise normal brain parenchyma. There is no additional mass or abnormal enhancement. The extra cranial soft tissues are within normal limits. The orbits are within normal limits. IMPRESSION: Large 53 mm extra axial dural based enhancing lesion in the left frontal and temporal convexity, compatible with meningioma. Associated significant mass effect with effacement of the ventricle, 60 mm rightward midline shift and mild rightward subfalcine herniation. Pick Pack Worker: PSCB Transcribe Date/Time: Jul 02 2024 7:42P Dictated by : SHYAM ATKINS MD This examination was interpreted and the report reviewed and electronically signed by: SHYAM ATKINS MD on Jul 02 2024 7:48PM EST [id number] Normal [facility] STAPHYLOCOCCUS AUREUS AND MR SA SCREEN, PCR, NASALon 07-02-2024 S. aureus and MRSA panel GORAN+probe (Nose) Not detected Normal Not Detected [facility] Comment on above: Order Comment: Speci men Type: SWABOrdering Facility: [facility] Address: [address] [place] [address] Performed By: #### S APCR ####[facility] LABCLIA [id number] [place] [address] [place] TYPE AND SCREEN,30 DAYon ABO O Normal [facility] Comment on above: Order Comment: Speci men Type: BLOOD SPECIMEN [facility] Address: [address] [place] [address] Performed By: #### T SCR30 #### [facility] BLOOD BANK CLIA [id number] [address] [place] [address] [place] HISTORICAL AB SCR STATUS Negative Normal [facility] Comment on above: Order Comment: Speci men Type: BLOOD SPECIMEN [facility] Address: [address] [place] [address] Performed By: #### T SCR30 #### [facility] BLOOD B[facility] CLIA [id number] [address] [place] [address] [place] Rh Nom (Bld) Positive Normal [facility] Comment on above: Order Comment: Speci men Type: BLOOD SPECIMEN Ordering [facility] Address: [address] [place] [address] Performed By: #### T SCR30 #### [facility] BLOOD BANK CLIA [id number] [address] [place] [address] [place] CNPNon 06-29-2024 CNPN Telephone (NSCAMN) ----- JENN FAN ([id number]) 1975 M Date Time Provider Department 06/29/24 GANESH CRUZ NSCAMN During your visit today, we recorded the following information about you: Surinder Thomas 06/29/2024 8:06 AM Signed General Call Caller : Jacque/spouse Contact Reason for Call : family has questions regarding surgery Patient requesting return call ? Yes Jil Graham, RN 06/29/2024 1:27 PM Signed Called and spoke with , Jacque. Preop instructions reviewed. Will follow up prior to surgery on 07/02 for educational visit. Patient is agreeable to this plan and verbalized understanding. Patient is aware to call with any change in condition, questions or concerns. GIOVANNY Quiroz, RN Pattern Storage Clerk Allergies As of Date: 06/29/2024 (No Known Allergies) Date Reviewed: 06/26/2024 Reviewed by: Shani Chaudhary MA - Fully Assessed Reason for Visit: Patient Question [6647] Problem List As Of Date: 06/29/2024 (None) Encounter Status:Closed by BASILIOVictorinomEelynVictorinoJIL Nolen on 06/29/24 Normal [facility] CNOVon 06-26-2024 CNOV Office Visit (NSCAMN ) ----- JENN FAN ([id number]) 1975 M Date Time Provider Department 06/26/24 10:30 AM GANESH CRUZ NSCAMN During your visit today, we recorded the following information about you: Temperature Pulse Respiration Blood pressure 98.8 degrees 80/minute 18/minute 149/87 Weight Height 83.6 kg 1.76 m Ganesh Cruz MD 06/26/2024 1:45 PM Signed SECTION OF SKULL BASE SURGERY MINIMALLY INVASIVE CRANIAL BASE AND PITUITARY SURGERY PROGRAM [facility], [facility] CC: Patient Care Team: Davin Montana DO as PCP - General (Family Medicine) ASSESSMENT: In summary, Jenn Fan is a very pleasant 48 year old male with few months of headaches, speech difficulty, memory changes and personality changes. MRI brain demonstrates large left fronto-temporal extra-axial lesion with surrounding edema, resulting in midline shift. I believe this is most likely represents a meningioma although the possibility that this could represent another type of tumor was also discussed. Meningiomas are best seen on the contrasted scan. The natural history of meningiomas was discussed in detail. Treatment options were discussed in detail including observation, radiation treatment/radiosurgery, or surgery. Given the size of the tumor, location and surrounding edema with midline shift, I recommend surgical resection. We will schedule for first available OR slot. In the meantime, we will start steroids and Keppra (for seizure prophylaxis) but he reports he didn't tolerate steroids he got from OSH and stopped. We will obtain MRI brain w/wo contrast for surgical planning. The surgery will be via left fronto-temporal craniotomy for resection of the tumor. We discussed the craniotomy for resection of brain tumor in detail including the risks, benefits, alternatives, and expected course and outcomes. Risks discussed included but were not limited to bleeding, infection, cerebrospinal fluid leak, numbness, weakness/paralysis, speech difficulty, stroke, seizures, medical complications, and . Patient and family understand these risks and wish to proceed. They also understand that this may be one of several staged procedures needed to treat this condition. PLAN: MRI brain w/wo contrast CT angiogram OR next Saturday (07/03) I have reviewed the history AND physical obtained and documented by the fellow who scribed on my behalf. I examined the patient and evaluated all available films and pertinent documents. This note accurately reflects work and decisions made by me. I spent approximately 60 minutes of total time for evaluation and management services provided on the date of the encounter which included preparing to see the patient, [id number] patient care, completing clinical documentation, performing a medically appropriate examination, counseling and educating the patient/family/caregiver, communicating with other HCPs, independently interpreting results and care coordination. Ganesh Cruz MD Staff, Skull Base AND Cerebrovascular Surgery Department of Neurological Surgery [facility] The patient is referred by Ashly Su APRN, CNP for neurosurgical evaluation. Final recommendations will be communicated back to the requesting physician by way of the shared medical records, or letters to requesting physician via US Mail. Chief Complaint: Left fronto-temporal extra-axial lesion concerning for meningioma History of Present Illness: Patient is accompanied by . The patient is a 48 year old male who presents with 3 months hx of headaches, memory changes and personality changes. MRI brain was performed as a part of work-up which demonstrated a large left fronto-temporal tumor. Patient denies any vision changes, seizures or focal neurological deficits. He does not have any significant past medical history. He is not on any blood thinners. No seizure activity. No prior imaging, no prior brain radiation. Past Medical History: History reviewed. No pertinent past medical history. Past Surgical History: History reviewed. No pertinent surgical history. Family History: No family history on file. Social History: Medications: No current outpatient medications on file. No current facility-administered medications for this visit. Allergies: ALLERGIES No Known Allergies Physical Examination: BP 149/87 Pulse 80 Temp 37.1 ?C (98.8 ?F) (Temporal) Resp 18 Ht 176 cm (5' 9.29 ) Wt 83.6 kg (184 lb 4.9 oz) SpO2 98% BMI 26.99 kg/m? Well developed, well nourished Awake, alert, conversant Speech: normal comprehension, very subtle fluency deficit/slowed speech, mild difficulty with repetition 2nd cranial nerve: Full visual kat 3rd, 4th, and 6th cranial nerves: Pupils equally round and reacti (more content not included)... [facility] (NSCAMN[facility] ----- JENN FAN ([id number]) 1975 M Date Time Provider Department 06/05/24 SELF NSCAMN During your visit today, we recorded the following information about you: Niesha Peters 06/05/2024 8:33 AM Signed 1. Epic: Who is requesting this appointment? Patient 2. Epic: Please indicate the best contact information for our team to reach you with any questions/concerns we may have: 3. Epic: For this appointment, we will need to request a few records from you. This will help our triage team be able to select the best provider for your treatment: MRI-BRAIN 4. Have you had any surgeries pertaining to this appointment? No 5. Epic: What facility and/or hospital have you been seen at? [facility] 6. Epic: Please allow up to 48-72 hours for our triage team to review your records. Once they reviewed your records, we will be in contact with you. Was the patient made aware of the turnaround time? Yes 7. Epic: Our department offers virtual visits. Can I get you scheduled to be seen virtually?No 8. Sent to triage pool. (Waiting on approval) 9. What is your expectation? Appointment Ashly Su APRN.DIRECTOR CARD 06/09/2024 11:29 AM Addendum Time Frame: MERCEDES < 2-3 weeks Provider: Skull base surgeon Referring: Patient/Self Dx: Large meningioma Patient: Jenn Fan Address: Jenn Fan [phone] [place] [address] Per Triage: Jenn Fan is a 48 year old male that requests evaluation of previously diagnosed large meningioma Presented to PCP (had not been seen in ~ 20 years) with complaints of Migraine: Onset of the headaches was approximately 5 weeks ago. Episodic. Has started as lightheaded and feels like his brain is being raked. It only lasts for few seconds. He does not wake with headache. He does go to bed with a headache. The headache does not wake him from sleep. There is no nausea or vomiting. No vision changes. He does have a history of vertigo. Patient expectations: New Consult Tumor Specifics: Location: brain Previous Evaluations: MRI w/wo contrast brain 05/27/24 Ashly Su APRN.DIRECTOR CARD June 05, 2024 Katherine Hauser 06/08/2024 5:41 PM Signed [facility]. Thanks, Marina Dykes 06/09/2024 1:44 PM Signed Done by Katherine Tariq 06/10/2024 9:10 AM Signed Outside images received as requested. LB Allergies As of Date: 06/05/2024 (Not on File) Date Reviewed: Never Reviewed Reason for Visit: triage [Other] Cmt: Phone call Primary Visit Diagnosis:Meningioma (HCC) [D32.9] [D32.9] Problem List As Of Date: 06/05/2024 (None) Encounter Status:Closed by ASHLY SU on 06/05/24 [facility] 06-03-2024 ALISON Telephone (NSCAMN) ----- JENN FAN ([id number]) 1975 M Date Time Provider Department 06/03/24 SELF NSCAMN During your visit today, we recorded the following information about you: Melva Chow 06/03/2024 11:48 AM Addendum Dx: Brain Tumor 1. Information Technology Project Manager: Who is requesting this appointment?patient and patient's spouse/significant other 2. Information Technology Project Manager: Please indicate the best contact information for our team to reach you with any questions/concerns we may have? cell 3. Information Technology Project Manager: What is your diagnosis? Other 4. Information Technology Project Manager: Have you ever been seen at our center before? If yes, by whom? No (If the patient has been seen in our department before, please bypass the triage process and send a message to the animal care technician of the provider that the patient saw in the past. (Patient being referred to us with the same dx)). 5. Information Technology Project Manager: Is there a specific doctor you were referred to? Edin Blackburn 6. Information Technology Project Manager: What facility and/or hospital have you been seen at? [facility] in [place], [place] Name of facility/name of provider where patient was treated. N/a 7. Information Technology Project Manager: For this appointment, we will need to request a few records from you. This will help our triage team be able to select the best provider for your treatment. a. Please provide: Most recent MRI- spine/Brain (Information Technology Project Manager will check CareEverywhere for records). 8. Information Technology Project Manager: Where was your last imaging completed:May 2024(Ideally should be completed within the last six months). 9. Information Technology Project Manager: Have you had any surgeries pertaining to this appointment? No If yes, please obtain pathology report. 10. Information Technology Project Manager: Please allow up to 48-72 hours for our triage team to review your records. Once they reviewed your records, we will be in contact with you. a. Was the patient made aware of the turnaround time? Yes 11. Information Technology Project Manager: Our department offers virtual visits depending on the provider you are recommended to see and the state that you live in. If able to schedule, would you like a virtual visit?Yes a. If answered yes: Does the patient have MyChart access: No If not, then corporate scheduler will walk patient through getting access to [employer]. b. If no, Are you interested in in person (If not, please indicate patient refused to schedule at this time and the reason to not proceed with scheduling). 12. Sent to triage pool. (Waiting approval). Poppy Nash PSS 06/04/2024 3:27 PM Signed Request for records sent to [facility] via rightfax. Allergies As of Date: 06/03/2024 (Not on File) Date Reviewed: Never Reviewed Reason for Visit: Triage [Other] Cmt: Sent rightfax for medical records AND imaging Problem List As Of Date: 06/03/2024 (None) Encounter Status:Closed by MELVA CHOW on 06/03/24 Normal [facility] CBC AND AUTO DIFFon 05-21-20 ABSOLUTE BASOPHIL 0.0 X10E9/L Normal 0.0-0.2 [facility] Comment on above: Performed By: #### C BCA CMP, 1988-02, , TSHR, FTPSA, 96611-3 #### [facility] ([id number]) [address], [address] [place] [address] ABSOLUTE NEUTROPHIL 4.3 X10E9/L Normal 1.5-6.6 [facility] Comment on above: Performed By: #### C BCA CMP, , TSHR, FTPSA, 40753-8 #### [facility] ([id number]) [address] [facility] [place] [address] Basophils/100 WBC (Bld) 0.1 % Normal [facility] Comment on above: Performed By: #### C BCA, CMP, , TSHR, FTPSA, 48182-5 #### [facility] ([id number]) [address], [address] [place] [address] Eosinophils (Bld) [#/Vol] 0.2 10*3/uL Normal 0.0-0.4 [facility] Comment on above: Performed By: #### C BCA, CMP, , TSHR, FTPSA, 99755-1 #### [facility] ([id number]) [address] [place] [address] Eosinophils/100 WBC (Bld) 2.5 % Normal [facility] Comment on above: Performed By: #### C BCA, CMP, 1988-02, , TSHR, FTPSA, 78528-1 #### [facility] ([id number]) [address] [place] [address] Erythrocyte distribution width (RBC) [Ratio] 13.1 % Normal 11.5-15.0 [facility] Comment on above: Performed By: #### C BCA, CMP, 1988-02, , TSHR, FTPSA, 01764-6 #### [facility] ([id number]) [address] [place] [address] Hematocrit (Bld) [Volume fraction] 43.1 % Normal 39-49 [facility] Comment on above: Performed By: #### C BCA, CMP, 1988-02, , TSHR, FTPSA, 15566-6 #### [facility] ([id number]) [address] [place] [address] Hemoglobin (Bld) [Mass/Vol] 14.9 g/dL Normal 13.0-17.0 [facility] Comment on above: Performed By: #### C BCA, CMP, 1988-02, , TSHR, FTPSA, 44945-7 #### [facility] ([id number]) [address] [address] Lymphocytes (Bld) [#/Vol] 2.1 10*3/uL Normal 1.0-3.5 [facility] Comment on above: Performed By: #### C BCA, CMP, 1988-02, , TSHR, FTPSA, 56108-2 #### [facility] ([id number]) [address], [address] [place] [address] Lymphocytes/100 WBC (Bld) 29.8 % Normal [facility] Comment on above: Performed By: #### C BCA, CMP, 1988-02, , TSHR, FTPSA, 81748-6 #### [facility] ([id number]) [address], [address] [place] [address] MCH (RBC) [Entitic mass] 30.7 pg Normal 27-34 [facility] Comment on above: Performed By: #### C BCA, CMP, 1988-02, , TSHR, FTPSA, 54963-6 #### [facility] ([id number]) [address] [place] [address] MCHC (RBC) [Mass/Vol] 34.5 g/dL Normal 32-36 [facility] Comment on above: Performed By: #### C BCA, CMP, 1988-02, , TSHR, FTPSA, 64900-5 #### [facility] ([id number]) [address], [address] [place] [address] MCV (RBC) [Entitic vol] 89 fL Normal 80-100 [facility] Comment on above: Performed By: #### C BCA, CMP, 1988-02, , TSHR, FTPSA, 41672-4 #### [facility] ([id number]) [address] [place] [address] Monocytes (Bld) [#/Vol] 0.5 10*3/uL Normal 0-0.9 [facility] Comment on above: Performed By: #### C BCA, CMP, 1988-02, , TSHR, FTPSA, 97746-3 #### [facility] ([id number]) [address], [address] [place] [address] Monocytes/100 WBC (Bld) 6.7 % Normal [facility] Comment on above: Performed By: #### C BCA, CMP, 1988-02, 71021-6, TSHR, FTPSA, 96869-9 #### [facility] ([id number]) [address], [address] [place] [address] Neutrophils/100 WBC (Bld) 60.9 % Normal [facility] Comment on above: Performed By: #### C BCA, CMP, 1988-02, , TSHR, FTPSA, 95969-5 #### [facility] ([id number]) [address], [address] [place] [address] Platelet mean volume (Bld) [Entitic vol] 10.1 fL Normal 7-12 [facility] Comment on above: Performed By: #### C BCA, CMP, 1988-02, , TSHR, FTPSA, 38627-3 #### [facility] ([id number]) [address], [address] [place] [address] Platelets (Bld) [#/Vol] 177 10*3/uL Normal 150-450 [facility] Comment on above: Performed By: #### Darren BCA, CMP, 1988-02, , TSHR, FTPSA, 06251-1 #### [facility] ([id number]) [address], [address] [place] [address] RBC COUNT 4.85 X10E12/L Normal 4.10-5.70 [facility] Comment on above: Performed By: #### C BCA, CMP, 1988-02, , TSHR, FTPSA, 20983-5 #### [facility] ([id number]) [address], [address] [place] [address] WBC (Bld) [#/Vol] 7.1 10*3/uL Normal 4.0-11.0 [facility] Comment on above: Performed By: #### C BCA, CMP, 1988-02, 82629-4, TSHR, FTPSA, 85410-9 #### [facility] ([id number]) [address], [address] [place] [address] COMPREHENSIVE METABOLIC PANE Aldo 05-21-2024 Albumin [Mass/Vol] 4.9 g/dL Normal 3.2-5.3 [facility] Comment on above: Performed By: #### C BCA, CMP, 1988-02, , TSHR, FTPSA, 92313-6 #### [facility] ([id number]) [address], [address] [place] [address] ALP [Catalytic activity/Vol] 61 U/L Normal 39-130 [facility] Comment on above: Performed By: #### C BCA, CMP, 1988-02, , TSHR, FTPSA, 81324-4 #### [facility] ([id number]) [address], [address] [place] [address] ALT [Catalytic activity/Vol] 38 U/L Normal 0-40 [facility] Comment on above: Performed By: #### C BCA, CMP, 1988-02, , TSHR, FTPSA, 64091-3 #### [facility] ([id number]) [address], [address] [place] [address] Anion gap [Moles/Vol] 10 mmol/L Normal 5-15 [facility] Comment on above: Performed By: #### C BCA, CMP, 1988-02, 33930-7, TSHR, FTPSA, 01547-4 #### [facility] ([id number]) [address], [address] [place] [address] AST [Catalytic activity/Vol] 20 U/L Normal 0-41 [facility] Comment on above: Performed By: #### C BCA, CMP, 1988-02, 23215-3, TSHR, FTPSA, 86508-5 #### [facility] ([id number]) [address], [address] [place] [address] Bilirubin [Mass/Vol] 0.7 mg/dL Normal 0.3-1.2 [facility] Comment on above: Performed By: #### C BCA, CMP, 1988-02, , TSHR, FTPSA, 93985-1 #### [facility] ([id number]) [address], [address] [place] [address] Calcium [Mass/Vol] 8.8 mg/dL Normal 8.5-10.5 [facility] Comment on above: Performed By: #### C BCA, CMP, 1988-02, , TSHR, FTPSA, 72098-9 #### [facility] ([id number]) [address], [address] [place] [address] Chloride [Moles/Vol] 101 mmol/L Normal 98-109 [facility] Comment on above: Performed By: #### C BCA, CMP, 1988-02, , TSHR, FTPSA, 34342-4 #### [facility] ([id number]) [address], [address] [place] [address] CO2 [Moles/Vol] 27 mmol/L Normal 22-32 [facility] Comment on above: Performed By: #### C BCA, CMP, 1988-02, 55462-5, TSHR, FTPSA, 52612-5 #### [facility] ([id number]) [address], [address] [place] [address] Creatinine [Mass/Vol] 0.89 mg/dL Normal 0.60-1.30 [facility] Comment on above: Result Comment: METH OD TRACEABLE TO IDMS STANDARD Performed By: #### C BCA, CMP, 1988-02, 24265-6, TSHR, FTPSA, 14223-9 #### [facility] ([id number]) [address], [address] [place] [address] eGFR (CKD-EPI) NON-RACE DEPENDENT >90 Normal >59 [facility] Comment on above: Result Comment: Reported eGFR is based on the CKD-EPI 2020 equation that does not use a race coefficient. Performed By: #### C BCA, CMP, 1988-02, , TSHR, FTPSA, 81437-8 #### [facility] ([id number]) [address], [address] [place] [address] Glucose [Mass/Vol] 102 mg/dL High 65-99 [facility] Comment on above: Performed By: #### C BCA, CMP, 1988-02, , TSHR, FTPSA, 31554-0 #### [facility] ([id number]) [address], [address] [place] [address] Potassium [Moles/Vol] 4.4 mmol/L Normal 3.5-5.0 [facility] Comment on above: Performed By: #### C BCA, CMP, 1988-02, , TSHR, FTPSA, 16816-9 #### [facility] ([id number]) [address] [place] [address] Protein [Mass/Vol] 7.3 g/dL Normal 6.0-8.0 [facility] Comment on above: Performed By: #### C BCA, CMP, 1988-02, , TSHR, FTPSA, 36119-5 #### [facility] ([id number]) [address] [place] [address] Sodium [Moles/Vol] 138 mmol/L Normal 134-146 [facility] Comment on above: Performed By: #### C BCA, CMP, 1988-02, 37392-8, TSHR, FTPSA, 17147-5 #### [facility] ([id number]) [address], [address] [place] [address] Urea nitrogen [Mass/Vol] 15 mg/dL Normal 5-23 [facility] Comment on above: Performed By: #### C BCA, CMP, 1988-02, 25273-6, TSHR, FTPSA, 93057-5 #### [facility] ([id number]) [address], [address] [place] [address] CRP [Mass/Vol]on 05-21-2024 C REACTIVE PROTEIN 0.1 mg/dL Normal 0.000-0.744 [facility] Comment on above: Performed By: #### C BCA, CMP, 1988-02, , TSHR, FTPSA, 21654-5 #### [facility] ([id number]) [address], [address] [place] [address] ESR Photometric method (Bld) [Velocity]on 05-21-2024 ESR, ERYTHROCYTE SEDIMENTATION RATE 2 mm/h Normal 0-20 [facility] Comment on above: Performed By: #### C BCA, CMP, 1988-02, 42910-3, TSHR, FTPSA, 62873-0 #### [facility] ([id number]) [address], [address] [place] [address] FREE AND TOTAL PSAon 024 % FREE PSA 39.7 Normal [facility] Comment on above: Result Comment: Percent Free PSA has been reported to have the greatest clinical utility when total PSA values are between 4.0 and 10.0 ng/mL. For men with a total PSA in this range, Percent Free PSA values of >25% are strongly associated with normal or benign prostate conditions. Percent Free PSA levels of <10% suggest that prostate cancer is more likely than BPH. For values between 10% and 25%, there is overlap of prostate cancer and BPH. Performed By: #### C BCA, CMP, 1988-02, 32814-8, TSHR, FTPSA, 90224-6 #### [facility] ([id number]) [address], [address] [place] [address] FREE PSA 0.31 ng/mL Normal [facility] Comment on above: Performed By: #### C BCA, CMP, 1988-02, , TSHR, FTPSA, 12419-1 #### [facility] ([id number]) [address], [address] [place] [address] PROSTATIC SPEC ANT 0.78 ng/mL Normal 0.00-4.00 [facility] Comment on above: Result Comment: The method used for this test is Bartolo Surya DXI chemiluminescent immunoassay. Values obtained by different assay methods cannot be used interchangeably. Performed By: #### C BCA, CMP, 1988-02, 94389-5, TSHR, FTPSA, 55683-0 #### [facility] ([id number]) [address], [address] [place] [address] Lipid 1996 panelon 4 Cholesterol [Mass/Vol] 204 mg/dL High 150-200 [facility] Comment on above: Performed By: #### C BCA, CMP, 1988-02, , TSHR, FTPSA, 76314-1 #### [facility] ([id number]) [address], [address] [place] [address] Cholesterol in HDL [Mass/Vol] 39 mg/dL Low >39 [facility] Comment on above: Result Comment: HDL <40 mg/dL - High Risk HDL > or = 40mg/dL- Desirable HDL >60 mg/dL - Negative Risk Performed By: #### C BCA, CMP, 1988-02, , TSHR, FTPSA, 72727-3 #### [facility] ([id number]) [address] [place] [address] Cholesterol in LDL [Mass/Vol] 116 mg/dL Normal <130 [facility] Comment on above: Result Comment: LDL <100 mg/dL - Desirable LDL >160 mg/dL - High Risk Performed By: #### C BCA, CMP, 1988-02, , TSHR, FTPSA, 07960-9 #### [facility] ([id number]) [address], [address] [place] [address] Cholesterol in VLDL [Mass/Vol] 49 mg/dL High 0-30 [facility] Comment on above: Performed By: #### C BCA, CMP, 1988-02, , TSHR, FTPSA, 48216-0 #### [facility] ([id number]) [address], [address] [place] [address] CHOLESTEROL:HDL 5.2 High 1.0-5.0 [facility] Comment on above: Performed By: #### C BCA, CMP, 1988-02, , TSHR, FTPSA, 52434-7 #### [facility] ([id number]) [address] [place] [address] Triglyceride [Mass/Vol] 245 mg/dL High 27-150 [facility] Comment on above: Performed By: #### C BCA, CMP, 1988-02, , TSHR, FTPSA, 52981-4 #### [facility] ([id number]) [address], [address] [place] [address] TSH WITH REFLEXon 05-21-2024 TSH 2.15 uIU/mL Normal 0.49-4.67 [facility] Comment on above: Performed By: #### C BCA, CMP, 1988-5, 09594-4, TSHR, FTPSA, 75185-1 #### [facility] ([id number]) [address] [place] [address] Vital Signs Date Time Vital Sign Value Performing Clinician Facility 08-14-2024 10:48-0400 Body mass index (BMI) [Ratio] 25.08 kg/m2 Ganesh Cruz MD Work Phone: [facility] 08-14-2024 10:48-0400 Body temperature 97.7 [degF] Ganesh Cruz MD Work Phone: [facility] 08-14-2024 10:48-0400 Body weight 77.7 kg Ganesh Cruz MD Work Phone: [facility] Comment on above: with shoes 08-14-2024 10:48-0400 Diastolic blood pressure 95 mm[Hg] Ganesh Cruz MD Work Phone: [facility] Comment on above: md notified 08-14-2024 10:48-0400 Heart rate 80 /min Ganesh Cruz MD Work Phone: [facility] 08-14-2024 10:48-0400 Respiratory rate 18 /min Ganesh Cruz MD Work Phone: [facility] 08-14-2024 10:48-0400 SaO2% (BldA) [Mass fraction] 99 % Ganesh Cruz MD Work Phone: [facility] 08-14-2024 10:48-0400 Systolic blood pressure 149 mm[Hg] Ganesh Louis Work Phone: [facility] Comment on above: md notified 07-17-2024 14:54-0400 Body mass index (BMI) [Ratio] 25.21 kg/m2 Selina Minor VP INFORMATICS.DIRECTOR CARD Work Phone: [facility] 07-17-2024 14:54-0400 Body temperature 97.59 [degF] Selina Minor VP [employer]FORMAT[employer].DIRECTOR CARD Work Phone: [facility] 07-17-2024 14:54-0400 Body weight 78.1 kg Selina Minor VP [employer].DIRECTOR CARD Work Phone: [facility] Comment on above: with shoes 07-17-2024 14:54-0400 Diastolic blood pressure 85 mm[Hg] Selina Minor VP [employer].DIRECTOR CARD Work Phone: [facility] 07-17-2024 14:54-0400 Heart rate 88 /min Selina Minor VP [employer].DIRECTOR CARD Work Phone: [facility] 07-17-2024 14:54-0400 Respiratory rate 18 /min Selina Minor VP [employer].DIRECTOR CARD Work Phone: [facility] 07-17-2024 14:54-0400 SaO2% (BldA) [Mass fraction] 98 % Selina Minor VP [employer].DIRECTOR CARD Work Phone: [facility] 07-17-2024 14:54-0400 Systolic blood pressure 137 mm[Hg] Selina Minor VP [employer].DIRECTOR CARD Work Phone: [facility] 07-03-2024 17:42-0400 SaO2% (BldA) [Mass fraction] 100 % GANESH CRUZ [facility] Comment on above: Order Comment: Specimen Type: ARTERIAL B LOOD SPECIMENOrdering Facility: [facility] Address: [address] [place] [address] Performed By: #### A LL ####[facility] [id number] [address] [place] 07-03-2024 15:24-0400 SaO2% (BldA) [Mass fraction] 100 % [facility] Comment on above: Order Comment: Specimen Type: ARTERIAL B LOOD SPECIMENOrdering Facility: [facility] Address: [address] [place] [address] Performed By: #### A LLMG ####[facility] LAB[facility] [id number] [place] [id number] [facility] 07-03-2024 13:35-0400 SaO2% (BldA) [Mass fraction] 100 % GANESH [facility] Comment on above: Order Comment: Specimen Type: ARTERIAL B LOOD SPECIMENOrdering Facility: [facility] Address: [address] [place] [address] Performed By: #### A LLMG ####[facility] [id number] [address] 07-02-2024 11:40-0400 Body height 175.3 cm Pac 5 Work Phone: [facility] 07-02-2024 11:40-0400 Body mass index (BMI) [Ratio] 26.83 kg/m2 Pac 5 Work Phone: [facility] 07-02-2024 11:40-0400 Body temperature 97.81 [degF] Pac 5 Work Phone: [facility] 07-02-2024 11:40-0400 Body weight 82.4 kg Pac 5 Work Phone: [facility] 07-02-2024 11:40-0400 Diastolic blood pressure 89 mm[Hg] Pac 5 Work Phone: [facility] 07-02-2024 11:40-0400 Heart rate 89 /min Pac 5 Work Phone: [facility] 07-02-2024 11:40-0400 Respiratory rate 18 /min Pac 5 Work Phone: [facility] 07-02-2024 11:40-0400 SaO2% (BldA) [Mass fraction] 98 % Pac 5 Work Phone: [facility] 07-02-2024 11:40-0400 Systolic blood pressure 135 mm[Hg] Pac 5 Work Phone: [facility] 06-26-2024 10:50-0400 Body height 176 cm Ganesh Cruz MD Work Phone: [facility] 06-26-2024 10:50-0400 Body mass index (BMI) [Ratio] 26.99 kg/m2 Ganesh Cruz MD Work Phone: [facility] 06-26-2024 10:50-0400 Body temperature 98.8 [degF] Ganesh Cruz MD Work Phone: [facility] 06-26-2024 10:50-0400 Body weight 83.6 kg Ganesh Cruz MD Work Phone: [facility] Comment on above: with shoes 06-26-2024 10:50-0400 Diastolic blood pressure 87 mm[Hg] Ganesh Cruz MD Work Phone: [facility] 06-26-2024 10:50-0400 Heart rate 80 /min Ganesh Cruz MD Work Phone: [facility] 06-26-2024 10:50-0400 Respiratory rate 18 /min Ganesh Cruz MD Work Phone: [facility] 06-26-2024 10:50-0400 SaO2% (BldA) [Mass fraction] 98 % Ganesh Cruz MD Work Phone: [facility] Comment on above: RA 06-26-2024 10:50-0400 Systolic blood pressure 149 mm[Hg] Ganesh Louis Work Phone: [facility] Encounters Encounter Date Encounter Type Care Provider Facility Start: 08-14-2024 End: 08-14-2024 ambulatory GANESH CRUZ Facility:[facility] Start: 08-14-2024 End: 08-14-2024 Patient encounter procedure Ganesh Cruz MD Work Phone: [facility] Comment on above: Meningioma (HCC) (Pr imary Dx) Start: 07-17-2024 End: 07-18-2024 ambulatory SELINA MINOR Facility:[facility] Start: 07-17-2024 End: 07-18-2024 Nursing evaluation of patient and report Jil Graham RN Work Phone: [facility] Comment on above: Meningioma (HCC) (Pr imary Dx) Start: 07-17-2024 End: 07-17-2024 Patient encounter procedure Selina Minor VP [employer].DIRECTOR CARD Work Phone: [facility] Comment on above: Meningioma (HCC) (Pr imary Dx) Start: 07-03-2024 End: 07-05-2024 Evaluation and management of inpatient GANESH CRUZ Facility:[facility] Start: 07-02-2024 End: 07-02-2024 [facility] [facility] Start: 07-02-2024 End: 07-02-2024 Subsequent hospital visit by physician Ct 2 Main Qb (I-Stat) Radiology Comment on above: Meningioma (HCC) [D3 2.9] Start: 07-02-2024 End: 07-02-2024 [facility] Facility:[facility] Start: 07-02-2024 End: 07-02-2024 Subsequent hospital visit by physician Mri 2 Radio Main Q (I-Stat/1.5t/3t) Work Phone: MRI Q Comment on above: Meningioma (HCC) [D3 2.9] Start: 07-02-2024 End: 07-02-2024 ambulatory GANESH CRUZ Facility:[facility] Start: 07-02-2024 Encounter for other preprocedural examination GANESH RECINOSNICOLASA [facility] Start: 07-02-2024 End: 07-02-2024 Admission to establishment Pacc Main 5 Work Phone: Pre Anesthesia Start: 07-02-2024 End: 07-02-2024 Anesthesia consultation Pacc Main 5 Work Phone: Pre Anesthesia Comment on above: Pre-op evaluation (P rimary Dx); Meningioma (HCC) Start: 07-02-2024 End: 07-02-2024 Preprocedural examination done [facility] Main 5 Work Phone: [facility] Work Phone: Start: 07-02-2024 End: 07-02-2024 ambulatory GANESH CRUZ Facility:[facility] Start: 07-02-2024 End: 07-02-2024 Nursing evaluation of patient and report Jil Graham RN Work Phone: [facility] Comment on above: Brain mass (Primary Dx) Start: 06-29-2024 End: 06-29-2024 Telephone encounter Ganesh Cruz MD Work Phone: [facility] Comment on above: Patient Question Start: 06-29-2024 End: 06-29-2024 [facility] DAVIN [place] Facility:[facility] Start: 06-26-2024 End: 06-26-2024 [facility] Start: 06-26-2024 End: 06-26-2024 Patient encounter procedure Ganesh Cruz MD Work Phone: [facility] Comment on above: Meningioma (HCC) [D3 2.9] (Primary Dx) Start: 06-05-2024 Telephone encounter Self [facility] Comment on above: triage (Phone call) Start: 06-03-2024 Telephone encounter Self [facility] Comment on above: Triage (Sent rightfa x for medical records & imaging ) Start: 05-21-2024 End: 05-21-2024 ambulatory DAVIN [facility] Procedures Date Procedure Procedure Detail Performing Clinician Start: 07-02-2024 Unlisted magnetic resonance procedure Ganesh Cruz MD Work Phone: Start: 07-02-2024 Ct angiography head w/contrast/noncontrast Ganesh Cruz MD Work Phone: Start: 07-02-2024 Antibody screen GANESH MAHMOOD Comment on above: Order Comment: Speci men Type: BLOOD SPECIMEN Ordering Facility: [facility] Address: [address] [place] [address] Performed By: #### T [id number] #### CC MAIN BLOOD BANK CLIA [id number] [facility] [address]K [id number] [place] [address] Start: 05-21-2024 Lipid 1996 panel - S deepak or Plasma Ganesh Cruz MD Work Phone: Plan of Treatment Date Care Activity Detail Author Start: 05-21-2029 Lipid panel Lipid Screening [facility] Start: 07-02-2027 [facility] Start: 05-21-2027 Diabetes Screening Diabetes Screen[facility] [place] Start: 08-14-2024 End: 08-14-2024 Patient encounter procedure 08/14/2024 11:00 AM EDT Office Visit [facility] [address] [phone] Ganesh Cruz MD [address] [place], [place] [id number] Post Op [facility] Comment on above: Post Op Start: 07-17-2024 End: 07-17-2024 Nursing evaluation of patient and report 07/17/2024 2:45 PM EDT Nurse Visit [facility] [address] [id number] [place] [address] [address] [id number] Post Op [facility] Comment on above: Post Op Start: 07-17-2024 End: 07-17-2024 Patient encounter procedure 07/17/2024 2:45 PM EDT Office Visit [place] [id number] Selina Minor APRN.DIRECTOR CARD [address] [place] [address] Post op [facility] Comment on above: Post op Start: 07-03-2024 End: 07-03-2024 Admission to same day surgery center 07/03/2024 12:15 PM EDT - 07/03/2024 6:15 PM EDT Surgery Admitting [address] [id number] Ganesh Cruz MD [address] [id number] ORBITOCRANIAL ZYGOMATIC APPROACH TO MID CRANI-FOSSA OSTEOTOMY W/ ELEVATE TEMPORAL LOBE Admitting Comment on above: ORBITOCRANIAL ZYGOMA TIC APPROACH TO MID CRANI-FOSSA OSTEOTOMY W/ ELEVATE TEMPORAL LOBE Start: 07-03-2024 End: 07-03-2024 Anesthesia consultation 07/03/2024 12:15 PM EDT Anesthesia Event Admitting [address] [phone] Wang Berrios DO [address] [place] [address] Admitting Start: 07-03-2024 Subsequent hospital visit by physician 07/03/2024 12:15 PM EDT Hospital Encounter Admitting [address] [place] [address] Ganesh Cruz MD [address] [place] [address] Meningioma (HCC) [D32.9] Admitting Comment on above: Meningioma (HCC) [D3 2.9] Start: 07-03-2024 End: 07-03-2024 Microsurg tqs req use operating microscope [facility] Start: 07-03-2024 End: 07-03-2024 Orbitocrnl appr mid cranial fossa temporal lobe [facility] Start: 07-03-2024 End: 07-03-2024 Rescj/exc les base pcf foramen vrt bodies idrl [facility] Start: 07-03-2024 End: 07-03-2024 Strtctc cptr asstd px cranial intradural [facility] Start: 06-29-2024 End: 06-29-2024 Patient encounter procedure 06/29/2024 5:15 PM EDT Office [place] [id number] pre op self pay 07-02 preop surg 07-03 [employer] [facility] Comment on above: pre op self pay 07-02 preop surg 07-03 Start: 06-21-2024 Covid-19 Vaccine ( season) Covid-19 Vaccine () [facility] Start: 06-21-2024 Covid-19 Vaccine () Covid-19 Vaccine () [facility] Start: 06-21-2024 Influenza vaccination Influenza Vacc ine (#1) [facility] Start: 2023 Shingrix Vaccine (1 of 2) Shingrix Vaccine (1 of 2) [facility] Start: 2018 Screening for malign ant neoplasm of colon [facility] Start: 1992 Hepatitis B Vaccine (1 of 3 - 19+ 3-dose series) Hepatitis B Vaccine (1 of 3 - 19+ 3-dose series) [facility] Start: 1992 Urine microalbumin profile DTaP,Tdap,Td Vaccine (1 - Tdap) [facility] Start: 1991 Anxiety Screening Anxiety Screening [facility] Start: 1991 Depression Screening Depression Scre ening [facility] Start: 1991 Hepatitis C screening Hepatitis C Sc reening [facility] Start: 1991 HIV screening HIV Screening [facility] ECG COMPLETE ECG COMPLETE ECG Routine Pre-op evaluation 07/02/2024 1:06 PM EDT [facility] Work Phone: Microsurg tqs req us e operating microscope MICROSURGICAL TECHNIQUES REQUIRING MICROSCOPE Meningioma (HCC) [facility] Orbitocrnl appr mid cranial fossa temporal lobe ORBITOCRANIAL ZYGOMATIC APPROACH TO MID CRANI-FOSSA OSTEOTOMY W/ ELEVATE TEMPORAL LOBE Meningioma (HCC) [facility] Rescj/exc les base p cf foramen vrt bodies idrl RESECTION LESION BASE OF POSTERIOR CRANIAL FOSSA INTRADURAL W/ REPAIR Meningioma (HCC) [facility] Strtctc cptr asstd p x cranial intradural STEREOTACTIC COMPUTER-ASSISTED NAVIGATIONAL PROCEDURE CRANIAL Meningioma (HCC) [facility] Social History Date Type Detail Facility Tobacco smoking stat us NHIS Tobacco smoking consumption unknown [facility] Start: 1975 Sex Assigned At Not on file [facility] Start: 06-26-2024 End: 08-14-2024 Gender identity Not on file [facility] Start: 06-26-2024 End: 07-02-2024 Tobacco smoking status NHIS Never smoked tobacco [facility] Start: 06-26-2024 Tobacco use and exposure Smokeless t obacco non-user [facility] Start: 06-26-2024 End: 08-14-2024 Alcoholic beverage intake Ex-drinker (finding) [facility] Start: 06-26-2024 End: 08-14-2024 History of Social function [facility] National Score (1-10 0), lower number is lower risk 81 [facility] Start: 07-02-2024 Tobacco use and exposure Forme r smokeless tobacco user [facility] End: 10-21-1999 History of tobacco use Chews Tobacco [facility] Medical Equipment Procedure Code Equipment Code Equipment Origin al Text Equipment Identifier Dates Graft Duragen Pl us Bovine Collagen Matrix 3x3in Soft Tissue Patch - [id number] Start: 07-03-2024 Plate Low Profil e Titanium 12mm Bone 2 Hole Bar 1.5mm Screw Nonsterile - [id number] Start: 07-03-2024 Cover 14mm Low Profile Titanium Pacheco Hole Tab 1.5mm Screw Nonsterile - [id number] Start: 07-03-2024 Plate Low Profil e Titanium 12mm Bone 2 Hole Bar 1.5mm Screw Nonsterile - [id number] Start: 07-03-2024 Screw Bone Unive rsal Neuro 3 4mm 1.5mm Self Drill Axial Stability Latex - [id number] Start: 07-03-2024 Clinical Notes 06-03-2024 to 08-14-2024 Patient InstructionsGanesh Cruz MD - 08/14/2024 11:00 AM Lana Augustine MA - 08/14/2024 10:48 AM EDLana Mackenzie MA - 08/14/2024 10:48 AM EDTPatient Instructions Note Date & Type Note Facility 08-14-2024 Instructions Ganesh Cruz MD - 08/14/2024 11:07 AM EDT PLAN: documented in this encounter [facility] 08-14-2024 History of Present illness Narrative Images from the original note were not included. 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 He had significantly improvement in cognitive/memory functions. He's doing well without complication and very pleased with result. I would like to consider [employer], but he's self-pay, we will inquire with [employer]. As default, I would get one MRI brain with contrast at 6 months, before increasing to 9 or 12 given the atypical features radiographically preop. Hopefully he'll have a durable benefit from resection of convexity meningioma. PLAN: ---MRI brain with contrast at 6 months and visit with Selina Cruz MD Staff, Skull Base & Cerebrovascular Surgery Department of Neurological Surgery [facility] SUBJECTIVE: Patient is doing really well No more NEW and pain Energy is good, much better Much improved cognitive and memory Better focus No seizure concerns Current Outpatient Medications Medication Sig MULTIVITAMIN ORAL Take by mouth. levETIRAcetam (KEPPRA) 1,000 mg tablet take 1 tablet by ORAL/FEEDING TUBE route two times a day for 14 days. acetaminophen (TYLENOL) 325 mg tablet Take 650 mg by mouth every 6 hours as needed for pain or fever (specify temp.). No current facility-administered medications for this visit. PHYSICAL EXAMINATION: BP 149/95[md notified[ Pulse 80 Temp (Src) 97.7 (Oral) Resp 18 Wt 171 lb 4.8 oz (77.7kg) SpO2 99% Oriented to person, place, and time Speech: Normal fluency and comprehension 2nd cranial nerve: Full visual kat 3rd, 4th and 6th cranial nerves: Pupils equally round and reactive to light, extraocular movements intact without nystagmus or subjective diplopia 5th cranial nerve: V1-3 intact to light touch bilaterally 7th cranial nerve: Facial muscles full and symmetric bilaterally 8th cranial nerve: hearing intact to finger rub bilaterally 9th cranial nerve: gag reflex test deferred 10th cranial nerve: Palate elevates symmetrically and uvula in the midline 11th nerve: shoulder shrug 5/5 bilaterally 12th cranial nerve: tongue protrudes in the midline Motors: 5/5 strength throughout without pronator drift Sensation: intact to light touch in all extremities Coordination: no dysmetria on finger-nose testing bilaterally Gait: able to stand and ambulate independently with normal gait Inc c/d/I, no temporalis atrophy well healed DATA REVIEW: MRI: GTR documented in this encounter [facility] 08-14-2024 Note HNO ID: [id number] Author: GANESH CRUZ MD Service: ? Author Type: Physician Type: Progress Notes Filed: 08/14/2024 11:56 Note Text: SECTION OF SKULL BASE SURGERY MINIMALLY INVASIVE CRANIAL BASE AND PITUITARY SURGERY PROGRAM [facility], [facility] CC: Patient Care Team: Davin Montana DO as PCP - General (Family Medicine) ASSESSMENT: Jenn Fan is s/p left frontotemporal craniotomy for SG1 resection of large convexity meningioma (WHO I, Ki 5-6%) on 07/03/24. He had significantly improvement in cognitive/memory functions. He's doing well without complication and very pleased with result. I would like to consider [employer], but he's self-pay, we will inquire with company. As default, I would get one MRI brain with contrast at 6 months, before increasing to 9 or 12 given the atypical features radiographically preop. Hopefully he'll have a durable benefit from resection of convexity meningioma. PLAN: ---MRI brain with contrast at 6 months and visit with Selina Cruz MD Staff, Skull Base AND Cerebrovascular Surgery Department of Neurological Surgery [facility] SUBJECTIVE: Patient is doing really well No more NEW and pain Energy is good, much better Much improved cognitive and memory Better focus No seizure concerns Current Outpatient Medications Medication Sig MULTIVITAMIN ORAL Take by mouth. levETIRAcetam (KEPPRA) 1,000 mg tablet take 1 tablet by ORAL/FEEDING TUBE route two times a day for 14 days. acetaminophen (TYLENOL) 325 mg tablet Take 650 mg by mouth every 6 hours as needed for pain or fever (specify temp.). No current facility-administered medications for this visit. PHYSICAL EXAMINATION: BP 149/95[md notified[ Pulse 80 Temp (Src) 97.7 (Oral) Resp 18 Wt 171 lb 4.8 oz (77.7kg) SpO2 99% Oriented to person, place, and time Speech: Normal fluency and comprehension 2nd cranial nerve: Full visual kat 3rd, 4th and 6th cranial nerves: Pupils equally round and reactive to light, extraocular movements intact without nystagmus or subjective diplopia 5th cranial nerve: V1-3 intact to light touch bilaterally 7th cranial nerve: Facial muscles full and symmetric bilaterally 8th cranial nerve: hearing intact to finger rub bilaterally 9th cranial nerve: gag reflex test deferred 10th cranial nerve: Palate elevates symmetrically and uvula in the midline 11th nerve: shoulder shrug 5/5 bilaterally 12th cranial nerve: tongue protrudes in the midline Motors: 5/5 strength throughout without pronator drift Sensation: intact to light touch in all extremities Coordination: no dysmetria on finger-nose testing bilaterally Gait: able to stand and ambulate independently with normal gait Inc c/d/I, no temporalis atrophy well healed DATA REVIEW: MRI: GTR [facility] 08-14-2024 Nurse Note Additional intake questions: Has the patient had fever, nausea, vomiting, diarrhea, constipation, fatigue for > 1 week? No Does the patient have a decreased appetite? No Does patient want to see a Credit Risk Specialist? No (yes to any of above refer patient to schedulers for dietitian appointment) ) Does patient have any new or increased numbness or tingling of extremities? No Is patient interested in fertility information? No Does patient need any prescription refills? No Does patient have an advanced directive in place? No, Patient referred to [facility] 08-14-2024 Nurse Note Additional intake questions: Has the patient had fever, nausea, vomiting, diarrhea, constipation, fatigue for > 1 week? No Does the patient have a decreased appetite? No Does patient want to see a Credit Risk Specialist? No (yes to any of above refer patient to schedulers for dietitian appointment) ) Does patient have any new or increased numbness or tingling of extremities? No Is patient interested in fertility information? No Does patient need any prescription refills? No Does patient have an advanced directive in place? No, Patient referred to [facility] documented in this encounter [facility] 07-20-2024 Note HNO ID: [id number] Author: JIL GRAHAM, RN Service: ? Author Type: Registered Nurse Type: Progress Notes Filed: 07/20/2024 08:56 Note Text: Patient is here today accompanied by his for surgical incision wound check. Surgery: Craniotomy on 07/03/24 for Meningioma resection with Dr Ganesh Cruz. Patient is recovering well postoperatively. No neurological symptoms or complaints compared to preoperative baseline . Re-discussed postoperative activity and associated restrictions. Incision is well approximated and healing. There are no signs or symptoms of infection. Reviewed wound care with patient with good understanding and confirmed postoperative follow up appointment with Dr Ganesh Cruz. Patient aware to phone office with any questions or concerns. GIOVANNY Quiroz, RN Pattern Storage Clerk [facility] 07-20-2024 History of Present illness Narrative Patient is here today accompanied by his for surgical incision wound check. Surgery: Craniotomy on 07/03/24 for Meningioma resection with Dr Ganesh Cruz. Patient is recovering well postoperatively. No neurological symptoms or complaints compared to preoperative baseline . Re-discussed postoperative activity and associated restrictions. Incision is well approximated and healing. There are no signs or symptoms of infection. Reviewed wound care with patient with good understanding and confirmed postoperative follow up appointment with Dr Ganesh Cruz. Patient aware to phone office with any questions or concerns. GIOVANNY Quiroz, RN [employer] Storage Clerk documented in this encounter [facility] 07-17-2024 Nurse Note Reviewed and confirmed with patient that there were no changes in the the nursing assessment and vitals that were completed on July 17, 2024 during previous provider appointment. Lana Yanez MA [facility] 07-17-2024 Nurse Note Reviewed and confirmed with patient that there were no changes in the the nursing assessment and vitals that were completed on July 17, 2024 during previous provider appointment. Lana Yanez MA documented in this encounter [facility] 07-17-2024 Nurse Note Additional intake questions: Has the patient had fever, nausea, vomiting, diarrhea, constipation, fatigue for > 1 week? No Does the patient have a decreased appetite? No Does patient want to see a Credit Risk Specialist? No (yes to any of above refer patient to schedulers for dietitian appointment) ) Does patient have any new or increased numbness or tingling of extremities? No Is patient interested in fertility information? No Does patient need any prescription refills? No Does patient have an advanced directive in place? No, Patient referred to [facility] 07-17-2024 Nurse Note Additional intake questions: Has the patient had fever, nausea, vomiting, diarrhea, constipation, fatigue for > 1 week? No Does the patient have a decreased appetite? No Does patient want to see a Credit Risk Specialist? No (yes to any of above refer patient to schedulers for dietitian appointment) ) Does patient have any new or increased numbness or tingling of extremities? No Is patient interested in fertility information? No Does patient need any prescription refills? No Does patient have an advanced directive in place? No, Patient referred to [facility] documented in this encounter [facility] 07-17-2024 History of Present illness Narrative Images from the original note were not included. Neurological [facility] NEURO-ONCOLOGY OUTPATIENT NOTE PURPOSE OF VISIT: Consultation requested by Dr. aGnesh Cruz for an opinion regarding meningioma and my final recommendations will be communicated to the referring physician by way of shared medical record or letter to requesting physician via [place] mail. CHIEF COMPLAINT : Post op MEDICAL DECISION MAKING Assessment & Plan 1. 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 Cruz as scheduled on 08/14/24 - Reviewed signs and symptoms that would prompt sooner evaluation - The patient has our contact information and was advised to call if new symptoms, questions or concerns arise prior to next scheduled visit. - All questions were answered. Selina Minor APRN.DIRECTOR CARD Certified Nurse Practitioner cc: Ganesh Cruz MD-EPIC Subjective HISTORY OF PRESENT ILLNESS: Jenn Fan is a 48 year old year old right-handed male who was found to have a 5.6 cm left fronto-temporal extra-axial lesion with surrounding edema, resulting in midline shift when he presented with a few months of headaches, speech difficulty, memory and personality changes. He is now . S/p Nguyen Grade II Left sided sphenofrontotemporal skull base approach with orbitotomy to approach anterior and middle fossa for skull base tumor on 07/03/24 with pathology showing Meningothelial meningioma, WHO Grade 1. Ki 67 index of 5-6%. INTERVAL HISTORY 07/17/24 Doing well. Reports clearer thoughts and better memory. No post surgical pain. No speech difficulties. All around feels more like himself. SOCIAL HISTORY: Social History Tobacco Use Smoking status: Never Smokeless tobacco: Former Types: Chew Quit date: 1999 Substance Use Topics Alcohol use: Not Currently Drug use: Not Currently Comment: last use in 1999 - No past medical history on file. FAMILY HISTORY Problem Relation Age of Onset Anesthesia Problems No Family History Current Outpatient Medications Medication Sig levETIRAcetam (KEPPRA) 1,000 mg tablet take 1 tablet by ORAL/FEEDING TUBE route two times a day for 14 days. methocarbamol (ROBAXIN) 750 mg tablet Take 1 tablet by mouth three times a day as needed for up to 10 days. docusate sodium (COLACE) 100 mg capsule Take 1 capsule by mouth two times a day for 14 days. acetaminophen (TYLENOL) 325 mg tablet Take 650 mg by mouth every 6 hours as needed for pain or fever (specify temp.). MULTIVITAMIN ORAL Take by mouth. No current facility-administered medications for this visit. REVIEW OF SYSTEMS : Neurological : No complaint of headache No complaint of tinnitus No complaint of decreased hearing No complaint of diplopia No complaints of blurred vision. No complaint of arm/leg numbness No problem with limb coordination No complaint of syncope No complaints of seizures. No complaints of memory changes or disorientation. General : Constitutional: No recent fever or weight loss. Eyes: No history of glaucoma or cataracts ENMT: No recent ear infection, nasal congestion, mouth sores or sore throat. CV: No history of chest pain, palpitations or leg swelling Respiratory: No history of SOB, wheezing or recent cough. Gastrointestinal: No history of nausea, vomiting, dysphagia or abdominal pain. Genitourinary: No history of hematuria or dysuria. Musculoskeletal: No complaint of arthritis, unstable gait or arm/leg weakness Psychiatric: No history of hallucinations, depression, or anxiety Objective PHYSICAL EXAMINATION: There were no vitals taken for this visit. General appearance: Well appearing, alert, in no acute distress, well-hydrated, well nourished. Skin: Skin color, texture, turgor normal, no suspicious rashes or lesions, incision clean, dry, intact Oropharynx: Lips, mucosa, and tongue normal, teeth and gums normal, oropharynx normal NEUROLOGICAL EXAM: Higher integrative functions: Oriented to person, place & time. Memory: Good recent and remote. Attention Span and Concentration: Good. Language: Accurate naming of objects. Good comprehension. Fund of Knowledge: Good. 2nd CN: Full visual kat. 3rd,4th,6th CN: Pupils (=), round, react to light, full extraocular movements. 5th CN: No decrease in facial sensation, normal corneal reflexes. 7th CN: Facial muscles symmetric and strong. 8th CN: Hears finger rub well bilaterally. 9th CN: Gag not tested 10th CN: Spontaneous palate movement, full and symmetric. 11th CN: Full strength in shoulder shrug. 12th CN: Tongue protrusion full and midline. Sensation: No decrease in sensation in upper or lower limbs to touch. Musculoskeletal: Gait is normal. Motor: 5/5, R=L, UE=LE. Normal muscle tone without atrophy in all limbs. Coordination: Rapid alternating movements fast and smooth all limbs. No dysdiadochokinesis. IMAGING STUDIES: MRI Brain WO/W IVCON MRI Report MRI BRAIN WO/W IVCON Exam End: 07/04/2024 8:58 AM (Final result) Narrative: * * *Final Report* * * DATE OF EXAM: Jul 04 2024 8:58AM [facility] 0295 - MRI BRAIN WO/W IVCON / PROCEDURE REASON: Post-operative / post-procedure assessment, asymptomatic * * * * Physician Interpretation * * * * EXAMINATION: MRI BRAIN WO/W IVCON CLINICAL HISTORY: Postop follow-up TECHNIQUE: Routine brain MRI protocol without and with contrast including diffusion images. MQ: [id number] Contrast: Please refer to technologist's note for contrast information. COMPARISON: MR brain from 07/02/2024 and 05/27/2024 RESULT: Acute Change: Mild restricted diffusion along the peripheral margins of the surgical cavity consistent with postop ischemic changes. Hemorrhage: See below. Mass Lesion/ Mass Effect: Status post left frontal craniotomy for frontal mass resection. Postsurgical changes such as pneumocephalus, stability artifact, T1 intrinsic signal and FLAIR signal within the margins of the surgical cavity consistent with blood byproducts and subdural collection underlying the craniotomy site are noted. Subgaleal collection overlies the craniotomy site. Slight interval improvement of the T2/FLAIR hyperintense signal in the left frontal lobe with improved midline shift now measuring 9 mm, most previously measured 12 on MR dated 05/27/2024. Chronic Change: The white matter is within otherwise normal limits of signal intensity for age. Parenchyma: No significant volume loss for age. Ventricles: Effacement of the left lateral ventricle secondary to vasogenic edema as described, slightly improved from prior imaging. Skull Base: Hypothalamic and pituitary region are grossly normal. Craniocervical junction is normal. No significant marrow replacement process. Vasculature: Major intracranial arterial structures, and dural venous sinuses show typical flow void, suggesting patency by spin echo criteria. Other: The visualized paranasal sinuses. Trace fluid right mastoid air cell. The orbits and extracranial soft tissues are unremarkable. Impression: IMPRESSION: Expected postoperative changes related to left frontal craniotomy for tumor resection. Slight interval improvement of the T2/FLAIR hyperintense signal and subfalcine shift. Pick Pack Worker: [facility] Transcribe Date/Time: Jul 04 2024 9:00A Dictated by : CHRISTI POOLE MD This examination was interpreted and the report reviewed and electronically signed by: TRISH DEXTER MD on Jul 04 2024 9:26AM EST Pathology Component FINAL DIAGNOSIS A-C. Skull base and left sphenoid bone, excision: - Meningothelial meningioma, WHO Grade 1. documented in this encounter [facility] 07-17-2024 Note HNO ID: [id number] Author: SELINA MINOR APRN.CNP Service: ? Author Type: Nurse Practitioner Type: Progress Notes Filed: 07/17/2024 15:30 Note Text: Neurological [facility] NEURO-ONCOLOGY OUTPATIENT NOTE PURPOSE OF VISIT: Consultation requested by Dr. Ganesh Cruz for an opinion regarding meningioma and my final recommendations will be communicated to the referring physician by way of shared medical record or letter to requesting physician via [place] mail. CHIEF COMPLAINT : Post op MEDICAL DECISION MAKING Assessment AND Plan 1. 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 Cruz as scheduled on 08/14/24 - Reviewed signs and symptoms that would prompt sooner evaluation - The patient has our contact information and was advised to call if new symptoms, questions or concerns arise prior to next scheduled visit. - All questions were answered. Selina Minor APRN.DIRECTOR CARD Certified Nurse Practitioner cc: Ganesh Cruz MD-[facility] Subjective HISTORY OF PRESENT ILLNESS: Jenn Fan is a 48 year old year old right-handed male who was found to have a 5.6 cm left fronto-temporal extra-axial lesion with surrounding edema, resulting in midline shift when he presented with a few months of headaches, speech difficulty, memory and personality changes. He is now . S/p Nguyen Grade II Left sided sphenofrontotemporal skull base approach with orbitotomy to approach anterior and middle fossa for skull base tumor on 07/03/24 with pathology showing Meningothelial meningioma, WHO Grade 1. Ki 67 index of 5-6%. INTERVAL HISTORY 07/17/24 Doing well. Reports clearer thoughts and better memory. No post surgical pain. No speech difficulties. All around feels more like himself. SOCIAL HISTORY: Social History Tobacco Use Smoking status: Never Smokeless tobacco: Former Types: Chew Quit date: 1999 Substance Use Topics Alcohol use: Not Currently Drug use: Not Currently Comment: last use in 1999 - [place] No past medical history on file. FAMILY HISTORY Problem Relation Age of Onset Anesthesia Problems No Family History Current Outpatient Medications Medication Sig levETIRAcetam (KEPPRA) 1,000 mg tablet take 1 tablet by ORAL/FEEDING TUBE route two times a day for 14 days. methocarbamol (ROBAXIN) 750 mg tablet Take 1 tablet by mouth three times a day as needed for up to 10 days. docusate sodium (COLACE) 100 mg capsule Take 1 capsule by mouth two times a day for 14 days. acetaminophen (TYLENOL) 325 mg tablet Take 650 mg by mouth every 6 hours as needed for pain or fever (specify temp.). MULTIVITAMIN ORAL Take by mouth. No current facility-administered medications for this visit. REVIEW OF SYSTEMS : Neurological : No complaint of headache No complaint of tinnitus No complaint of decreased hearing No complaint of diplopia No complaints of blurred vision. No complaint of arm/leg numbness No problem with limb coordination No complaint of syncope No complaints of seizures. No complaints of memory changes or disorientation. General : Constitutional: No recent fever or weight loss. Eyes: No history of glaucoma or cataracts ENMT: No recent ear infection, nasal congestion, mouth sores or sore throat. CV: No history of chest pain, palpitations or leg swelling Respiratory: No history of SOB, wheezing or recent cough. Gastrointestinal: No history of nausea, vomiting, dysphagia or abdominal pain. Genitourinary: No history of hematuria or dysuria. Musculoskeletal: No complaint of arthritis, unstable gait or arm/leg weakness Psychiatric: No history of hallucinations, depression, or anxiety Objective PHYSICAL EXAMINATION: There were no vitals taken for this visit. General appearance: Well appearing, alert, in no acute distress, well-hydrated, well nourished. Skin: Skin color, texture, turgor normal, no suspicious rashes or lesions, incision clean, dry, intact Oropharynx: Lips, mucosa, and tongue normal, teeth and gums normal, oropharynx normal NEUROLOGICAL EXAM: Higher integrative functions: Oriented to person, place AND time. Memory: Good recent and remote. Attention Span and Concentration: Good. Language: Accurate naming of objects. Good comprehension. Fund of Knowledge: Good. 2nd CN: Full visual kat. 3rd,4th,6th CN: Pupils (=), round, react to light, full extraocular movements. 5th CN: No decrease in facial sensation, normal corneal reflexes. 7th CN: Facial musc (more content not included)... [facility] 07-05-2024 Note HNO ID: [id number] Author: LIDIA BLACK, ? Service: Pharmacy Author Type: Independent Contractor Type: Plan of Care Filed: 07/06/2024 16:48 Note Text: PHARMACY BEDSIDE DELIVERY SERVICE Patient Name: Jenn Fan The marked outpatient medications were Filled at: [facility] and delivered to the patient's bedside to patient Medication List START taking these medications dexAMETHasone 2 mg tablet Commonly known as: DECADRON Take 1 tablet by mouth two times a day with meals for 3 days, THEN 1 tablet daily with breakfast for 2 days. Start taking on: July 05, 2024 DELIVERED docusate sodium 100 mg capsule Commonly known as: COLACE Take 1 capsule by mouth two times a day for 14 days. DELIVERED levETIRAcetam 1,000 mg tablet Commonly known as: KEPPRA take 1 tablet by ORAL/FEEDING TUBE route two times a day for 14 days. DELIVERED methocarbamol 750 mg tablet Commonly known as: ROBAXIN Take 1 tablet by mouth three times a day as needed for up to 10 days. DELIVERED oxyCODONE IR 5 mg immediate release tablet Commonly known as: ROXICODONE Take 1 tablet by mouth every 8 hours as needed for pain for up to 3 days. DELIVERED CONTINUE taking these medications MULTIVITAMIN ORAL TylenoL 325 mg tablet Generic drug: acetaminophen You might also be taking other medications not listed above. If you have questions about any of your other medications, talk to the person who prescribed them or your Primary Care Provider. Lidia Annika PAGER: [phone] July 05, 2024 4:21 PM [facility] 07-04-2024 Note HNO ID: [id number] Author: DU WERNER MD Service: Neurosurgery Author Type: Resident Type: Progress Notes Filed: 07/04/2024 12:44 Note Text: Attestation signed by Du Werner MD at 07/04/2024 12:44 PM Attending Note: Gallegos findings confirmed. Patient examined. Discussed with the resident and the patient. Plan as outlined. Du Werner MD Neurosurgery Inpatient Progress Note Interval HPI: No acute events. Objective: 07/03/24 1042 BP: 142/90 Pulse: 83 Resp: 16 Temp: 36.2 ?C (97.2 ?F) TempSrc: Temporal Artery SpO2: 98% Intake/Output Summary (Last 24 hours) at 07/03/2024 1739 Last data filed at 07/03/2024 1631 Gross per 24 hour Intake 3200 ml Output 1650 ml Net 1550 ml EXAM: Alert, Oriented x 3 PERRL, EOMI Repetition 2/2 and naming 3/3 Facial sensation intact bilaterally L facial swelling, tongue midline Speech fluent and appropriate BUE 5, no drift BLE 5 Sensation intact to light touch throughout Headwrap c/d/i A/P: 48M with no significant PMH with a 3 mo history of NEW, memory/personality changes in setting of L FT extra-axial lesion now s/p 07/03 L crani for resection of L frontotemporal meningioma - SDU - MRI today - Dex 4 mg BID for 72h - Keppra x14d - PT/OT - SCDs only, SQH on POD2 Staff: Dr. Cruz (Dr. Werner covering) Signature: Brandy Gaytan MD PGY-3, Neurological Surgery Pager: [phone] Neurosurgery manager employee relations: [phone] 9:39 AM 07/04/24 Please page [phone] on weekends and after 6pm [facility] 07-03-2024 Note HNO ID: [id number] Author: JENNIFER BALDERAS MD Service: Neurosurgery Author Type: Resident Type: Progress Notes Filed: 07/03/2024 19:05 Note Text: Neurosurgery Post-Operative Note Patient: Jenn Fan Interval HPI Postop check Objective Vitals 07/03/24 1042 BP: 142/90 Pulse: 83 Resp: 16 Temp: 36.2 ?C (97.2 ?F) TempSrc: Temporal Artery SpO2: 98% Exam Waking up from anesthesia Oriented x3 PERRL, EOMI FS, TM Mild aphasia (naming 2/3, repetition not intact) BUE 5/5 BLE 5/5 SILT globally Dressing clean, dry, and intact Assessment/Plan Patient is a 48 year old male with no significant PMH and left sided meningioma who is s/p 07/03/2024 left crani for meningioma rxn -Admit to SDU -Neuro as above, mild aphasia -Pain control -Fierro in place for now -Okay for diet -PT/OT -Imaging: MRI Brain w/wo POD1 -Dex 4mg BID -Keppra 1g BID Jennifer Balderas MD PGY-6, Neurological Surgery Pager: [phone] 7:03 PM 07/03/24 [facility] 07-03-2024 Note HNO ID: [id number] Author: CAITLIN CARDOSO DO Service: ? Author Type: Physician Type: Anesthesia Procedure Notes Filed: 07/03/2024 15:44 Note Text: ANESTHESIOLOGY PROCEDURE NOTE A-Line General Information Procedure Start Time/Medication Administration: 07/03/2024 12:45 PM Procedure End Time: 07/03/2024 12:52 PM Patient location during procedure: OR Timeout Performed Pre-procedure: timeout performed Consent Obtained: Yes Patient identity confirmed: arm band and patient Indications: continuous blood pressure monitoring and blood sampling needed Staffing Anesthesiologist: Caitlin Cardoso DO Resident: Wang Berrios DO Performed by: resident Preparation Sterility Preparation: hand hygiene performed prior to procedure, sterile gloves, drapes, and procedure tray, surgical cap used, mask used, sterile drape used during line insertion, skin prep agent completely dried prior to procedure Site Prep: Chloraprep Procedure Details Catheter Type: arterial line Catheter Size: 20 G Catheter Length: 5.25 in Guidewire Used: Yes Guidewire Removed Intact: Yes Laterality: left Site: radial artery Ultrasound Guided: Yes Image in Chart: No Sites: potential access sites evaluated, selected vessel patent, concurrent real time ultrasound visualization of vascular needle entry Vessel: target vessel identified and guidewire advanced into vessel Line Secured: Tegaderm and tape Events Events: patient tolerated procedure well with no complications SIGNATURE: Wang Berrios DO PATIENT NAME: Jenn Fan DATE: July 03, 2024 TIME: 1:34 PM CSN: [id number] Attending Note For the Bedside procedure, I was physically present during the entire procedure. Resident performed > 50% of the procedure, under direct supervision and the remainder of the procedure was performed by the primary surgeon/proceduralist with assistance. Signature: Caitlin Cardoso DO Date: 07/03/2024 Time: 3:44 PM [facility] 07-03-2024 Note HNO ID: [id number] Author: CAITLIN CARDOSO DO Service: ? Author Type: Physician Type: Anesthesia Procedure Notes Filed: 07/03/2024 15:44 Note Text: ANESTHESIOLOGY PROCEDURE NOTE Airway General Information Procedure Start Time/Medication Administration: 07/03/2024 12:26 PM Procedure End Time: 07/03/2024 12:27 PM Patient location during procedure: OR Timeout Performed Pre-procedure: timeout performed Consent Obtained: Yes Patient identity confirmed: arm band and patient Staffing Anesthesiologist: Caitlin Cardoso DO Resident: Henry Harper MD Performed by: resident Indications and Patient Condition Indications for airway management: anesthesia Preoxygenated: yes anesthesia circuit Method: asleep Difficult Mask: No Airway Accessory: oral airway Final Airway Details Final airway type: endotracheal airway Final Endotracheal Airway: ETT Cuffed: yes Successful intubation technique: video laryngoscopy Devices used: Bobo and intubating stylet Endotracheal tube insertion site: oral Blade size: #4 ETT size (mm): 7.5 Measured from: lips Measurement (cm): 23 Placement verified by: capnometry Cormack-Lehane Classification: grade I - full view of glottis Number of attempts at approach: 1 Airway not difficult SIGNATURE: Wang Berrios DO PATIENT NAME: Jenn Fan DATE: July 03, 2024 TIME: 1:33 PM CSN: [id number] Attending Note For the Bedside procedure, I was physically present during the entire procedure. Resident performed > 50% of the procedure, under direct supervision and the remainder of the procedure was performed by the primary surgeon/proceduralist with assistance. Signature: Caitlin Cardoso DO Date: 07/03/2024 Time: 3:44 PM [facility] 07-03-2024 Note HNO ID: [id number] Author: JIL GRAHAM RN Service: ? Author Type: Registered Nurse Type: Progress Notes Filed: 07/03/2024 08:23 Note Text: DISCIPLINE: NURSING DIAGNOSIS Meningioma PROCEDURE/SURGERY:Craniotomy on 07/03/[address] Ganesh Cruz PATIENT READINESS TO LEARN MOTIVATION TO LEARN: Eager *SUPPORT High *COGNITIVE ABILITYAlert and oriented *INFLUENCING FACTORS* None *PHYSICAL LIMITATIONS* None *LEARNING PREFERENCES* : PT. LEARNS BEST BY: Individual Instruction INSTRUCTIONS PROVIDED TO: Patient and CONTENT The following supplemental materials were given in written form to the patient in a folder at a previous visit and reviewed with the patient at this visit : - Your Surgical Guide Booklet -[facility] Teaching sheet for Deep Vein Thrombosis (DVT) -FAQ's about Surgical Site Infections -Medication Stoppage (Medications/Vitamins/OTC) prior to surgery -Patient information: Reducing surgical site infections -Dr. Cruz - Postoperative instructions [id number] Genetic and Molecular Analysis of Tumors of the Central Nervous System and their Coverings. A copy of the consent form was given to patient on 07/02/24. Discussed with patient all risks, benefits, and alternatives with good understanding. Questions concerning enrollment were answered. Patient has read the informed consent. Patient states understanding and has agreed to participate on 07/02/24 at ~1100. Informed consent obtained and copy given to the patient. *PATIENT EVALUATION* Verbalizes Understanding *FOLLOW UP PLAN* COMPLETE No Need for Follow Up Jil Graham Pager [phone] [facility] 07-03-2024 History of Present illness Narrative DISCIPLINE: NURSING DIAGNOSIS Meningioma PROCEDURE/SURGERY:Craniotomy on 07/03/[address] Ganesh Cruz PATIENT READINESS TO LEARN MOTIVATION TO LEARN: Eager *SUPPORT High *COGNITIVE ABILITYAlert and oriented *INFLUENCING FACTORS* None *PHYSICAL LIMITATIONS* None *LEARNING PREFERENCES* : PT. LEARNS BEST BY: Individual Instruction INSTRUCTIONS PROVIDED TO: Patient and CONTENT The following supplemental materials were given in written form to the patient in a folder at a previous visit and reviewed with the patient at this visit : - Your Surgical Guide Booklet -[facility] Teaching sheet for Deep Vein Thrombosis (DVT) -FAQ's about Surgical Site Infections -Medication Stoppage (Medications/Vitamins/OTC) prior to surgery -Patient information: Reducing surgical site infections -Dr. Cruz - Postoperative instructions [id number] Genetic and Molecular Analysis of Tumors of the Central Nervous System and their Coverings. A copy of the consent form was given to patient on 07/02/24. Discussed with patient all risks, benefits, and alternatives with good understanding. Questions concerning enrollment were answered. Patient has read the informed consent. Patient states understanding and has agreed to participate on 07/02/24 at ~1100. Informed consent obtained and copy given to the patient. *PATIENT EVALUATION* Verbalizes Understanding *FOLLOW UP PLAN* COMPLETE No Need for Follow Up Jil Graham Pager [phone] documented in this encounter [facility] 07-02-2024 Note HNO ID: [id number] Author: AZUL ANDERSON RN Service: Nursing Author Type: Registered Nurse Type: Progress Notes Filed: 07/02/2024 15:45 Note Text: Radiology Service Progress Note DATE OF SERVICE: July 02, 2024 TIME: 3:32 PM PATIENT WEIGHT: 182LBS PATIENT IDENTITY VERIFICATION COMPLETED USING TWO (2) STANDARD IDENTIFIERS: Name and Date of confirmed by patient verbally and Name and Date of confirmed by identification band. FALL SCREENING: Has the patient had 2 falls in the last year or 1 fall with injury or currently using an Ambulatory Assistive Device (Walker, Cane, Wheelchair, Crutches, etc.)? No PATIENT GENDER DATA: Male ALLERGIES: Reviewed and unchanged CONTRAST ALLERGY: No EXAM: CT -CONTRAST INDUCED NEPHROPATHY RISK FACTORS: no risk factors CREATININE: No results found for: CREAT , EGFROTH , EGFRAA P.O.C.T. RESULTS: N/A July 02, 2024 TREATMENT: N/A IV SITE: Ambulatory: A peripheral IV was started in the Right antecubital site with a Angio cath: 20 gauge. Leave iv in for MRI. IV SITE APPEARANCE: Clean,Dry and Intact SIGNATURE: Azul Anderson RN PATIENT NAME: Jenn Fan DATE: July 02, 2024 TIME: 3:32 PM [facility] 07-02-2024 History of Present illness Narrative Radiology Service Progress Note DATE OF SERVICE: July 02, 2024 TIME: 3:32 PM PATIENT WEIGHT: 182LBS PATIENT IDENTITY VERIFICATION COMPLETED USING TWO (2) STANDARD IDENTIFIERS: Name and Date of confirmed by patient verbally and Name and Date of confirmed by identification band. FALL SCREENING: Has the patient had 2 falls in the last year or 1 fall with injury or currently using an Ambulatory Assistive Device (Walker, Cane, Wheelchair, Crutches, etc.)? No PATIENT GENDER DATA: Male ALLERGIES: Reviewed and unchanged CONTRAST ALLERGY: No EXAM: CT -CONTRAST INDUCED NEPHROPATHY RISK FACTORS: no risk factors CREATININE: No results found for: CREAT , EGFROTH , EGFRAA P.O.C.T. RESULTS: N/A July 02, 2024 TREATMENT: N/A IV SITE: Ambulatory: A peripheral IV was started in the Right antecubital site with a Angio cath: 20 gauge. Leave iv in for MRI. IV SITE APPEARANCE: Clean,Dry and Intact SIGNATURE: Azul Anderson RN PATIENT NAME: Jenn Fan DATE: July 02, 2024 TIME: 3:32 PM Radiology Service Progress Note PATIENT NAME: Jenn Fan DATE OF SERVICE: July 02, 2024 TIME: 3:49 PM PATIENT IDENTITY VERIFICATION COMPLETED USING TWO (2) IDENTIFIERS: Name and Date of confirmed by patient verbally and Name and Date of confirmed by identification band. FALL SCREENING: Has the patient had 2 falls in the last year or 1 fall with injury or currently using an Ambulatory Assistive Device (Walker, Cane, Wheelchair, Crutches, etc.)? No PATIENT GENDER DATA: Male PATIENT RELEVANT IMPLANT DATA REVIEWED: Yes PATIENT PRESENTS WITH AN IMPLANTABLE OR ATTACHED [place]ART[place] TUTOR: No RADIOLOGY DEPARTMENT: CT; Exam(s) Completed: Brain and CTA Brain PERIPHERAL IV DATA: Site assessment: Clean,Dry and Intact, Site disposition Discontinued SIGNED BY: RT Robledo (R) July 02, 2024 3:49 PM documented in this encounter [facility] 07-02-2024 Note HNO ID: [id number] Author: RUPESH FROST RT (R) Service: Radiology Author Type: Technologist Type: Progress Notes Filed: 07/02/2024 15:56 Note Text: Radiology Service Progress Note PATIENT NAME: Jenn Fan DATE OF SERVICE: July 02, 2024 TIME: 3:49 PM PATIENT IDENTITY VERIFICATION COMPLETED USING TWO (2) IDENTIFIERS: Name and Date of confirmed by patient verbally and Name and Date of confirmed by identification band. FALL SCREENING: Has the patient had 2 falls in the last year or 1 fall with injury or currently using an Ambulatory Assistive Device (Walker, Cane, Wheelchair, Crutches, etc.)? No PATIENT GENDER DATA: Male PATIENT RELEVANT IMPLANT DATA REVIEWED: Yes PATIENT PRESENTS WITH AN IMPLANTABLE OR ATTACHED KINDERGARTEN TUTOR: No RADIOLOGY DEPARTMENT: CT; Exam(s) Completed: Brain and CTA Brain PERIPHERAL IV DATA: Site assessment: Clean,Dry and Intact, Site disposition Discontinued SIGNED BY: RT Meena(R) July 02, 2024 3:49 PM [facility] 07-02-2024 History of Present illness Narrative Radiology Service Progress Note DATE OF SERVICE: July 02, 2024 TIME: 4:18 PM PATIENT WEIGHT: 182LBS PATIENT IDENTITY VERIFICATION COMPLETED USING TWO (2) STANDARD IDENTIFIERS: Name and Date of confirmed by patient verbally and Name and Date of confirmed by identification band. FALL SCREENING: Has the patient had 2 falls in the last year or 1 fall with injury or currently using an Ambulatory Assistive Device (Walker, Cane, Wheelchair, Crutches, etc.)? No PATIENT GENDER DATA: Male ALLERGIES: Reviewed and unchanged CONTRAST ALLERGY: No EXAM: MRI - CONTRAST TYPE: GROUP II IV SITE: Ambulatory: 20 Right AC. IV inserted at CT scan IV SITE APPEARANCE: Clean,Dry and Intact SIGNATURE: Anderson Krueger RN PATIENT NAME: Jenn Fan DATE: July 02, 2024 TIME: 4:18 PM Radiology Service Progress Note PATIENT NAME: Jenn Fan DATE OF SERVICE: July 02, 2024 TIME: 4:31 PM PATIENT IDENTITY VERIFICATION COMPLETED USING TWO (2) IDENTIFIERS: Name and Date of confirmed by patient verbally and Name and Date of confirmed by identification band. FALL SCREENING: Has the patient had 2 falls in the last year or 1 fall with injury or currently using an Ambulatory Assistive Device (Walker, Cane, Wheelchair, Crutches, etc.)? No PATIENT GENDER DATA: Male PATIENT RELEVANT IMPLANT DATA REVIEWED: Yes PATIENT PRESENTS WITH AN IMPLANTABLE OR ATTACHED KINDERGARTEN TUTOR: No RADIOLOGY DEPARTMENT: MR; Exam(s) Completed: Head: Localization PERIPHERAL IV DATA: Site assessment: Clean,Dry and Intact, Site disposition Discontinued SIGNED BY: RT Placido(Candace) July 02, 2024 4:31 PM documented in this encounter [facility] 07-02-2024 Note HNO ID: [id number] Author: ANDERSON KRUEGER RN Service: ? Author Type: Registered Nurse Type: Progress Notes Filed: 07/02/2024 16:19 Note Text: Radiology Service Progress Note DATE OF SERVICE: July 02, 2024 TIME: 4:18 PM PATIENT WEIGHT: 182LBS PATIENT IDENTITY VERIFICATION COMPLETED USING TWO (2) STANDARD IDENTIFIERS: Name and Date of confirmed by patient verbally and Name and Date of confirmed by identification band. FALL SCREENING: Has the patient had 2 falls in the last year or 1 fall with injury or currently using an Ambulatory Assistive Device (Walker, Cane, Wheelchair, Crutches, etc.)? No PATIENT GENDER DATA: Male ALLERGIES: Reviewed and unchanged CONTRAST ALLERGY: No EXAM: MRI - CONTRAST TYPE: GROUP II IV SITE: Ambulatory: 20 Right AC. IV inserted at CT scan IV SITE APPEARANCE: Clean,Dry and Intact SIGNATURE: Anderson Krueger RN PATIENT NAME: Jenn Fan DATE: July 02, 2024 TIME: 4:18 PM [facility] 07-02-2024 Note HNO ID: [id number] Author: ELVER ESCAMILLA RT(R) Service: ? Author Type: Technologist Type: Progress Notes Filed: 07/02/2024 16:32 Note Text: Radiology Service Progress Note PATIENT NAME: Jenn Fan DATE OF SERVICE: July 02, 2024 TIME: 4:31 PM PATIENT IDENTITY VERIFICATION COMPLETED USING TWO (2) IDENTIFIERS: Name and Date of confirmed by patient verbally and Name and Date of confirmed by identification band. FALL SCREENING: Has the patient had 2 falls in the last year or 1 fall with injury or currently using an Ambulatory Assistive Device (Walker, Cane, Wheelchair, Crutches, etc.)? No PATIENT GENDER DATA: Male PATIENT RELEVANT IMPLANT DATA REVIEWED: Yes PATIENT PRESENTS WITH AN IMPLANTABLE OR ATTACHED KINDERGARTEN TUTOR: No RADIOLOGY DEPARTMENT: MR; Exam(s) Completed: Head: Localization PERIPHERAL IV DATA: Site assessment: Clean,Dry and Intact, Site disposition Discontinued SIGNED BY: RT Placido(R) July 02, 2024 4:31 PM [facility] 07-02-2024 Instructions Dominik Dowell PA-C - 07/02/2024 12:06 PM EDT Images from the original note were not included. [facility] PATIENT PREOPERATIVE INSTRUCTIONS Ganesh Cruz MD has scheduled you for your procedure at this surgery center: [facility] [place] Scheduling Office: [phone] --[address] [place] [address]. Please read below carefully for your personalized instructions. Dietary Restrictions: - No solid food after midnight. - You may have 12 ounces of clear liquids (water, clear juices such as apple juice or gatorade, carbonated beverages, clear tea, black coffee, jello) until 2 hours before scheduled arrival at facility. Medications: Unless instructed differently below, stay on all of your medications until your surgery. If you start any new medications after today's visit, please contact your surgeon. No outpatient medications have been marked as taking for the 07/02/24 encounter (PAT) with [address] [place] [address]. If you take any medications for erectile dysfunction-Cialis (Tadalafil), Levitra, Staxyn (Vardenafil) Viagra (Sildenenafil please do not take these for 48 hours before surgery. If you start any new medications after today's visit, please contact the surgeon's office. Blood Thinning Medications: - Stop NSAIDS (Ibuprofen, Advil, Aleve, Motrin, Celebrex, Mobic, etc.) 7 days before surgery, as directed by your surgeon. - Stop Aspirin 7 days before surgery, as directed by your surgeon. - Stop Vitamin E, ALL multi-vitamins, herbals and dietary supplements 7 days before surgery. - You may take Tylenol (Acetaminophen) or any of your pain medications that do not contain aspirin or NSAIDS as needed. Important Reminders: - Candy, mints, and tobacco products are NOT permitted the morning of surgery. - Hearing aids, dentures and glasses may be worn the morning of surgery. - NO jewelry, body piercings, makeup, hairpins or contacts are to be worn the day of surgery. If you develop symptoms such as a fever, cold, or flu, or have other changes to your health within TWO DAYS of scheduled surgery or the morning of surgery, please contact the surgery center above. Personal Belongings: -Please have photo ID and insurance cards. -If you do not have a copy of advance directives on file with us, please bring a copy with you on the day of surgery. - Leave ALL valuables and money at home or with family members. Arrival Time for Surgery: - To obtain your arrival time for surgery, call your physician's office the day before your surgery. - If your surgery is scheduled for Saturday, call the Saturday before. Your surgeon s corporate scheduler will tell you what time to call the office. - If you have not reached the departmental corporate scheduler by 5 P.M., call [phone] after 5 P.M. the day before your surgery. Please be aware that emergency situations arise, which may delay or change your surgical time. If this happens, we will notify you as soon as possible and regret any inconvenience. If you already have an Advance Directive, please fax a copy to [phone] or email to for it to be added to your chart. If you do not have an Advance Directive, you can find the appropriate form and more information at [email or web address]. We recommend that you complete the Advance Directive form found on the website and bring it with you the day of your surgery. It can be witnessed and scanned into your chart that day. Dominik Dowell PA-C documented in this encounter [facility] 07-02-2024 History and physical note Images from the original note were not included. [facility] HISTORY AND PHYSICAL EXAMINATION SERVICE DATE: 07/02/2024 SERVICE TIME: 11:57 AM PRIMARY CARE PHYSICIAN: Davin Montana, DO Assessment There is no known pertinent medical condition which may affect heber-operative course Biggs Activity Status Index: METS: Climb a flight of stairs or walk up a hill (5.50 METs) DASI Score: 5.5 Patient denies any chest pain or undue shortness of breath with the above physical activity. Clinical Frailty Scale: 2. Well STOP-Bang Score: Male patient Denies snoring loudly Denies feeling tired, fatigued, or sleepy during the daytime Has not been observed to stop breathing or choking/gasping during sleep Denies having high blood pressure BMI less than or equal to 35 kg/m^2 Patient 50 years old or younger Does not have a large neck STOP-Bang Score: 1 ANESTHESIA FINDINGS: Intubation History: No history of difficult intubation. No abnormal airway history Significant Anesthesia Considerations: none Airway History: No history of difficult airway No abnormal airway history I - PHYSICAL EVALUATION AIRWAY Patient intubated: No. Tracheostomy tube not present Mallampati: IV. TM distance: >3 FB. Neck ROM: full ROM without neurological symptoms. Mouth opening: adequate. Short neck: no. Thick neck: no Lip Bite Test: II Microretrognathia/Micronagthia/Rec essed Chin: No DENTAL Dental findings: missing tooth/teeth. Additional comments: +caps. II - ANESTHESIA PLAN Anesthetic plan additional comments: *[facility]/TCI - anesthesia choice. Beta Nik Monitoring Plan Post Procedure Analgesic Plan Prepared for Surgery: optimally prepared for surgery, pending day of surgery. EKG, labs. Patient seen in [facility] the day prior to surgery. CONSULTS: Patient does not require consults for optimization at this time Planned Anesthetic: anesthesia choice The Following Tests/Procedures Have Been Initiated: EKG, labs REASON FOR VISIT: Jenn Fan is a 48 year old male who is scheduled for Procedure(s): ORBITOCRANIAL ZYGOMATIC APPROACH TO MID CRANI-FOSSA OSTEOTOMY W/ ELEVATE TEMPORAL LOBE (Left) RESECTION LESION BASE OF POSTERIOR CRANIAL FOSSA INTRADURAL W/ REPAIR (Left) STEREOTACTIC COMPUTER-ASSISTED NAVIGATIONAL PROCEDURE CRANIAL (N/A) MICROSURGICAL TECHNIQUES REQUIRING MICROSCOPE (N/A) at the request of Ganesh Vargas MD for consultation. My final recommendation will be communicated back to the requesting physician by way of shared medical record or letter. Subjective The patient has the following: COVID-19 Immunization Status Overdue - Covid-19 Vaccine ( season) Never done No completion, postpone, frequency change, or communication history exists for this topic. CHIEF COMPLAINT: Meningioma (HCC) [D32.9] HPI: Jenn Fan is a 48 year old male who presents to [facility] today for preop exam. Patient is scheduled for the above procedure tomorrow 07/03/24. Patient started experiencing headaches over the past 3 months which prompted him to follow up OP with PCP and had MRI that showed a large left fronto-temporal tumor. Patient was started on decadron which he did not tolerate. Denies seizures. Denies fevers, chills, chest pain, and SOB. REVIEW OF SYSTEMS: General: Negative for: fever. Neurological: Positive for: headaches. Negative for: seizures, TIA and strokes. Respiratory: Negative for: asthma, COPD, current cough, pneumonia within 6 weeks, tobacco use, URI < 2 weeks and obstructive sleep apnea. Cardiovascular: Negative for: angina, anticoagulation therapy, arrhythmia, atrial fibrillation, CAD, chest pain, CHF, congenital heart defect, DVT/PE, hyperlipidemia, hypertension, recent MO and murmur/valvular heart disease. GI: Negative for: abdominal pain, dysphagia, GERD, heartburn, hepatitis, liver disease, nausea and vomiting. : Negative for: on dialysis, dysuria, frequent urination, hematuria, nephrolithiasis and renal failure. Endocrine: Negative for: diabetes mellitus, hyperthyroidism, hypothyroidism and steroid for chronic problem. Hematology: No history of bleeding or clotting disorder. Patient is not taking anti-coagulation or platelet medications. No history of hematological symptoms or problems. Oncology: No history of CA metastasis, chemo within 30 days, or radiotherapy within 90 days. No history of oncological symptoms or problems. Musculoskeletal: Negative for joint pain or swelling, back pain or muscle pain. Skin: Negative for lesions, rash and itching. History reviewed. No pertinent past medical history. PAST SURGICAL HISTORY No date: TONSILLECTOMY HX Comment: and adenoids at age 8 FAMILY HISTORY Problem Relation Age of Onset Anesthesia Problems No Family History Social History Tobacco Use Smoking status: Never Smokeless tobacco: Former Types: Chew Quit date: 1999 Substance Use Topics Alcohol use: Not Currently Drug use: Not Currently Comment: last use in 1999 - [facility] Prior to Admission medications as of 07/02/24 1157 Medication Sig Last Dose Taking MULTIVITAMIN ORAL Take by mouth. No medication comments found. ALLERGIES No Known Allergies Objective PHYSICAL EXAM: General: alert and oriented and healthy appearance. Pertinent negatives noted - not distressed. Skin: normal color, no rash or lesions. HEENT: EOM intact. Pertinent negatives noted - no carotid bruit. Cardiovascular: regular rate and rhythm, normal S1 and S2, no rub, murmurs, or gallop. Respiratory: normal breath sounds, no wheezes or crackles. No chest wall deformity or tenderness. Abdomen: Extremities: no deformity, no edema or tenderness, no joint swelling or clubbing. Neurological: normal cognition and motor skills. Gait normal. No weakness or sensory deficit. PAIN ASSESSMENT: VITALS: BP 135/89 Pulse 89 Temp (Src) 97.8 (Temporal) Resp 18 Ht 5' 9 (1.75m) Wt 181 lb 10.5 oz (82.4kg) SpO2 98% BMI 26.81 kg/(m^2). Diagnostic tests reviewed for today's visit: Lab Value Units Date High Low HB No results within date range. HCT No results within date range. WBC No results within date range. PLT No results within date range. NA No results within date range. K No results within date range. GLUC No results within date range. BUN No results within date range. CREAT No results within date range. PTSEC No results within date range. INR No results within date range. APTT No results within date range. ALT No results within date range. AST No results within date range. TBILI No results within date range. TSH No results within date range. Lab Value Units Date High Low HCGQT No results within date range. UHCG No results within date range. HCG, BODY* No results within date range. Lab Value Units Date High Low ABORHD No results within date range. ABSCREEN No results within date range. No results found for: HBA1C No results found for this or any previous visit (from the past 8760 hour(s)). No results found for this or any previous visit (from the past 95968 hour(s)). Instructions Given to Patient: Instructions located in the after visit summary. Patient given verbal and written preop instructions and voices comprehension and compliance. SIGNATURE: Dominik Dowell PA-C PATIENT NAME: Jenn Fan DATE: July 02, 2024 TIME: 11:57 AM PAGER/CONTACT #: [facility] 07-02-2024 History and physical note Images from the original note were not included. [facility] HISTORY AND PHYSICAL EXAMINATION SERVICE DATE: 07/02/2024 SERVICE TIME: 11:57 AM PRIMARY CARE PHYSICIAN: Davin Montana, DO Assessment There is no known pertinent medical condition which may affect heber-operative course Biggs Activity Status Index: METS: Climb a flight of stairs or walk up a hill (5.50 METs) DASI Score: 5.5 Patient denies any chest pain or undue shortness of breath with the above physical activity. Clinical Frailty Scale: 2. Well STOP-Bang Score: Male patient Denies snoring loudly Denies feeling tired, fatigued, or sleepy during the daytime Has not been observed to stop breathing or choking/gasping during sleep Denies having high blood pressure BMI less than or equal to 35 kg/m^2 Patient 50 years old or younger Does not have a large neck STOP-Bang Score: 1 ANESTHESIA FINDINGS: Intubation History: No history of difficult intubation. No abnormal airway history Significant Anesthesia Considerations: none Airway History: No history of difficult airway No abnormal airway history I - PHYSICAL EVALUATION AIRWAY Patient intubated: No. Tracheostomy tube not present Mallampati: IV. TM distance: >3 FB. Neck ROM: full ROM without neurological symptoms. Mouth opening: adequate. Short neck: no. Thick neck: no Lip Bite Test: II Microretrognathia/Micronagthia/Rec essed Chin: No DENTAL Dental findings: missing tooth/teeth. Additional comments: +caps. II - ANESTHESIA PLAN Anesthetic plan additional comments: *[facility]/TCI - anesthesia choice. Beta Nik Monitoring Plan Post Procedure Analgesic Plan Prepared for Surgery: optimally prepared for surgery, pending day of surgery. EKG, labs. Patient seen in [facility] the day prior to surgery. CONSULTS: Patient does not require consults for optimization at this time Planned Anesthetic: anesthesia choice The Following Tests/Procedures Have Been Initiated: EKG, labs REASON FOR VISIT: Jenn Fan is a 48 year old male who is scheduled for Procedure(s): ORBITOCRANIAL ZYGOMATIC APPROACH TO MID CRANI-FOSSA OSTEOTOMY W/ ELEVATE TEMPORAL LOBE (Left) RESECTION LESION BASE OF POSTERIOR CRANIAL FOSSA INTRADURAL W/ REPAIR (Left) STEREOTACTIC COMPUTER-ASSISTED NAVIGATIONAL PROCEDURE CRANIAL (N/A) MICROSURGICAL TECHNIQUES REQUIRING MICROSCOPE (N/A) at the request of Ganesh Vargas MD for consultation. My final recommendation will be communicated back to the requesting physician by way of shared medical record or letter. Subjective The patient has the following: COVID-19 Immunization Status Overdue - Covid-19 Vaccine ( season) Never done No completion, postpone, frequency change, or communication history exists for this topic. CHIEF COMPLAINT: Meningioma (HCC) [D32.9] HPI: Jenn Fan is a 48 year old male who presents to [facility] today for preop exam. Patient is scheduled for the above procedure tomorrow 07/03/24. Patient started experiencing headaches over the past 3 months which prompted him to follow up OP with PCP and had MRI that showed a large left fronto-temporal tumor. Patient was started on decadron which he did not tolerate. Denies seizures. Denies fevers, chills, chest pain, and SOB. REVIEW OF SYSTEMS: General: Negative for: fever. Neurological: Positive for: headaches. Negative for: seizures, TIA and strokes. Respiratory: Negative for: asthma, COPD, current cough, pneumonia within 6 weeks, tobacco use, URI < 2 weeks and obstructive sleep apnea. Cardiovascular: Negative for: angina, anticoagulation therapy, arrhythmia, atrial fibrillation, CAD, chest pain, CHF, congenital heart defect, DVT/PE, hyperlipidemia, hypertension, recent MO and murmur/valvular heart disease. GI: Negative for: abdominal pain, dysphagia, GERD, heartburn, hepatitis, liver disease, nausea and vomiting. : Negative for: on dialysis, dysuria, frequent urination, hematuria, nephrolithiasis and renal failure. Endocrine: Negative for: diabetes mellitus, hyperthyroidism, hypothyroidism and steroid for chronic problem. Hematology: No history of bleeding or clotting disorder. Patient is not taking anti-coagulation or platelet medications. No history of hematological symptoms or problems. Oncology: No history of CA metastasis, chemo within 30 days, or radiotherapy within 90 days. No history of oncological symptoms or problems. Musculoskeletal: Negative for joint pain or swelling, back pain or muscle pain. Skin: Negative for lesions, rash and itching. History reviewed. No pertinent past medical history. PAST SURGICAL HISTORY No date: TONSILLECTOMY HX Comment: and adenoids at age 8 FAMILY HISTORY Problem Relation Age of Onset Anesthesia Problems No Family History Social History Tobacco Use Smoking status: Never Smokeless tobacco: Former Types: Chew Quit date: 1999 Substance Use Topics Alcohol use: Not Currently Drug use: Not Currently Comment: last use in 1999 - [facility] Prior to Admission medications as of 07/02/24 1157 Medication Sig Last Dose Taking MULTIVITAMIN ORAL Take by mouth. No medication comments found. ALLERGIES No Known Allergies Objective PHYSICAL EXAM: General: alert and oriented and healthy appearance. Pertinent negatives noted - not distressed. Skin: normal color, no rash or lesions. HEENT: EOM intact. Pertinent negatives noted - no carotid bruit. Cardiovascular: regular rate and rhythm, normal S1 and S2, no rub, murmurs, or gallop. Respiratory: normal breath sounds, no wheezes or crackles. No chest wall deformity or tenderness. Abdomen: Extremities: no deformity, no edema or tenderness, no joint swelling or clubbing. Neurological: normal cognition and motor skills. Gait normal. No weakness or sensory deficit. PAIN ASSESSMENT: VITALS: BP 135/89 Pulse 89 Temp (Src) 97.8 (Temporal) Resp 18 Ht 5' 9 (1.75m) Wt 181 lb 10.5 oz (82.4kg) SpO2 98% BMI 26.81 kg/(m^2). Diagnostic tests reviewed for today's visit: Lab Value Units Date High Low HB No results within date range. HCT No results within date range. WBC No results within date range. PLT No results within date range. NA No results within date range. K No results within date range. GLUC No results within date range. BUN No results within date range. CREAT No results within date range. PTSEC No results within date range. INR No results within date range. APTT No results within date range. ALT No results within date range. AST No results within date range. TBILI No results within date range. TSH No results within date range. Lab Value Units Date High Low HCGQT No results within date range. UHCG No results within date range. HCG, BODY* No results within date range. Lab Value Units Date High Low ABORHD No results within date range. ABSCREEN No results within date range. No results found for: HBA1C No results found for this or any previous visit (from the past 8760 hour(s)). No results found for this or any previous visit (from the past 88632 hour(s)). Instructions Given to Patient: Instructions located in the after visit summary. Patient given verbal and written preop instructions and voices comprehension and compliance. SIGNATURE: Dominik Dowell PA-C PATIENT NAME: Jenn Fan DATE: July 02, 2024 TIME: 11:57 AM PAGER/CONTACT #: documented in this encounter [facility] 06-29-2024 Telephone encounter Note Called and spoke with , Jacque. Preop instructions reviewed. Will follow up prior to surgery on 07/02 for educational visit. Patient is agreeable to this plan and verbalized understanding. Patient is aware to call with any change in condition, questions or concerns. GIOVANNY Quiroz, RN Pattern Storage Clerk [facility] Work Phone: 06-29-2024 Miscellaneous Notes Called and spoke with , Jacque. Preop instructions reviewed. Will follow up prior to surgery on 07/02 for educational visit. Patient is agreeable to this plan and verbalized understanding. Patient is aware to call with any change in condition, questions or concerns. GIOVANNY Quiroz, RN Pattern Storage Clerk General Call Caller : Jacque/spouse Contact Reason for Call : family has questions regarding surgery Patient requesting return call ? Yes documented in this encounter [facility] 06-29-2024 Telephone encounter Note General Call Caller : Jacque/spouse Contact Reason for Call : family has questions regarding surgery Patient requesting return call ? Yes [facility] 06-26-2024 Nurse Note Additional intake questions: Has the patient had fever, nausea, vomiting, diarrhea, constipation, fatigue for > 1 week? Yes, fatigue slightly Does the patient have a decreased appetite? No Does patient want to see a Credit Risk Specialist? No (yes to any of above refer patient to schedulers for dietitian appointment) ) Does patient have any new or increased numbness or tingling of extremities? No Is patient interested in fertility information? NA Does patient need any prescription refills? No Does patient have an advanced directive in place? No, Patient refused referral to Social Work or Resource Center Electronically Signed By: Shani Chaudhary MA [facility] 06-26-2024 Nurse Note Additional intake questions: Has the patient had fever, nausea, vomiting, diarrhea, constipation, fatigue for > 1 week? Yes, fatigue slightly Does the patient have a decreased appetite? No Does patient want to see a Credit Risk Specialist? No (yes to any of above refer patient to schedulers for dietitian appointment) ) Does patient have any new or increased numbness or tingling of extremities? No Is patient interested in fertility information? NA Does patient need any prescription refills? No Does patient have an advanced directive in place? No, Patient refused referral to Social Work or Resource Center Electronically Signed By: Shani Chaudhary MA documented in this encounter [facility] 06-26-2024 History of Present illness Narrative Images from the original note were not included. SECTION OF SKULL BASE SURGERY MINIMALLY INVASIVE CRANIAL BASE & PITUITARY SURGERY PROGRAM [facility] CC: Patient Care Team: Davin Montana DO as PCP - General (Family Medicine) ASSESSMENT: In summary, Jenn Fan is a very pleasant 48 year old male with few months of headaches, speech difficulty, memory changes and personality changes. MRI brain demonstrates large left fronto-temporal extra-axial lesion with surrounding edema, resulting in midline shift. I believe this is most likely represents a meningioma although the possibility that this could represent another type of tumor was also discussed. Meningiomas are best seen on the contrasted scan. The natural history of meningiomas was discussed in detail. Treatment options were discussed in detail including observation, radiation treatment/radiosurgery, or surgery. Given the size of the tumor, location and surrounding edema with midline shift, I recommend surgical resection. We will schedule for first available OR slot. In the meantime, we will start steroids and Keppra (for seizure prophylaxis) but he reports he didn't tolerate steroids he got from OSH and stopped. We will obtain MRI brain w/wo contrast for surgical planning. The surgery will be via left fronto-temporal craniotomy for resection of the tumor. We discussed the craniotomy for resection of brain tumor in detail including the risks, benefits, alternatives, and expected course and outcomes. Risks discussed included but were not limited to bleeding, infection, cerebrospinal fluid leak, numbness, weakness/paralysis, speech difficulty, stroke, seizures, medical complications, and . Patient and family understand these risks and wish to proceed. They also understand that this may be one of several staged procedures needed to treat this condition. PLAN: MRI brain w/wo contrast CT angiogram OR next Saturday (07/03) I have reviewed the history & physical obtained and documented by the fellow who scribed on my behalf. I examined the patient and evaluated all available films and pertinent documents. This note accurately reflects work and decisions made by me. I spent approximately 60 minutes of total time for evaluation and management services provided on the date of the encounter which included preparing to see the patient, [id number] patient care, completing clinical documentation, performing a medically appropriate examination, counseling and educating the patient/family/caregiver, communicating with other HCPs, independently interpreting results and care coordination. Ganesh Cruz MD Staff, Skull Base & Cerebrovascular Surgery Department of Neurological Surgery [facility] The patient is referred by Ashly Su APRN, CNP for neurosurgical evaluation. Final recommendations will be communicated back to the requesting physician by way of the shared medical records, or letters to requesting physician via US Mail. Chief Complaint: Left fronto-temporal extra-axial lesion concerning for meningioma History of Present Illness: Patient is accompanied by . The patient is a 48 year old male who presents with 3 months hx of headaches, memory changes and personality changes. MRI brain was performed as a part of work-up which demonstrated a large left fronto-temporal tumor. Patient denies any vision changes, seizures or focal neurological deficits. He does not have any significant past medical history. He is not on any blood thinners. No seizure activity. No prior imaging, no prior brain radiation. Past Medical History: History reviewed. No pertinent past medical history. Past Surgical History: History reviewed. No pertinent surgical history. Family History: No family history on file. Social History: Medications: No current outpatient medications on file. No current facility-administered medications for this visit. Allergies: ALLERGIES No Known Allergies Physical Examination: BP 149/87 Pulse 80 Temp 37.1 C (98.8 F) (Temporal) Resp 18 Ht 176 cm (5' 9.29 ) Wt 83.6 kg (184 lb 4.9 oz) SpO2 98% BMI 26.99 kg/m Well developed, well nourished Awake, alert, conversant Speech: normal comprehension, very subtle fluency deficit/slowed speech, mild difficulty with repetition 2nd cranial nerve: Full visual kat 3rd, 4th, and 6th cranial nerves: Pupils equally round and reactive to light, extraocular movements intact without nystagmus or subjective diplopia 5th cranial nerve: V1-3 intact to light touch bilaterally 7th cranial nerve: Facial muscles full and symmetric bilaterally 8th cranial nerve: hearing intact to finger rub bilaterally 9th cranial nerve: gag reflex test deferred 10th cranial nerve: Palate elevates symmetrically and uvula in the midline 11th cranial nerve: shoulder shrug 5/5 bilaterally 12th cranial nerve: tongue protrudes in the midline Motors: Normal muscle tone, 5/5 strength throughout without pronator drift Sensation: Intact to light touch in all extremities Coordination: no dysmetria on fingers-nose testing bilaterally Gait: able to stand and ambulate independently with normal gait Data Review: Imaging: MRI personally reviewed -large 5 cm extra-axial mass, no contrasted sequence available, moderate to severe mass effect on the left frontal lobe with significant brain edema, midline shift Surgery Check List Preoperative: MRI brain stereo with, CTA Intraoperative: 3/4 block; sofi; zeiss; sonopet documented in this encounter [facility] 06-26-2024 Note HNO ID: [id number] Author: GANESH CRUZ MD Service: ? Author Type: Physician Type: Progress Notes Filed: 06/26/2024 13:45 Note Text: SECTION OF SKULL BASE SURGERY MINIMALLY INVASIVE CRANIAL BASE AND PITUITARY SURGERY PROGRAM [facility] CC: Patient Care Team: Davin Montana DO as PCP - General (Family Medicine) ASSESSMENT: In summary, Jenn Fan is a very pleasant 48 year old male with few months of headaches, speech difficulty, memory changes and personality changes. MRI brain demonstrates large left fronto-temporal extra-axial lesion with surrounding edema, resulting in midline shift. I believe this is most likely represents a meningioma although the possibility that this could represent another type of tumor was also discussed. Meningiomas are best seen on the contrasted scan. The natural history of meningiomas was discussed in detail. Treatment options were discussed in detail including observation, radiation treatment/radiosurgery, or surgery. Given the size of the tumor, location and surrounding edema with midline shift, I recommend surgical resection. We will schedule for first available OR slot. In the meantime, we will start steroids and Keppra (for seizure prophylaxis) but he reports he didn't tolerate steroids he got from OSH and stopped. We will obtain MRI brain w/wo contrast for surgical planning. The surgery will be via left fronto-temporal craniotomy for resection of the tumor. We discussed the craniotomy for resection of brain tumor in detail including the risks, benefits, alternatives, and expected course and outcomes. Risks discussed included but were not limited to bleeding, infection, cerebrospinal fluid leak, numbness, weakness/paralysis, speech difficulty, stroke, seizures, medical complications, and . Patient and family understand these risks and wish to proceed. They also understand that this may be one of several staged procedures needed to treat this condition. PLAN: MRI brain w/wo contrast CT angiogram OR next Saturday (07/03) I have reviewed the history AND physical obtained and documented by the fellow who scribed on my behalf. I examined the patient and evaluated all available films and pertinent documents. This note accurately reflects work and decisions made by me. I spent approximately 60 minutes of total time for evaluation and management services provided on the date of the encounter which included preparing to see the patient, [id number] patient care, completing clinical documentation, performing a medically appropriate examination, counseling and educating the patient/family/caregiver, communicating with other HCPs, independently interpreting results and care coordination. Ganesh Cruz MD Staff, Skull Base AND Cerebrovascular Surgery Department of Neurological Surgery [facility] The patient is referred by Ashly Su APRN, CNP for neurosurgical evaluation. Final recommendations will be communicated back to the requesting physician by way of the shared medical records, or letters to requesting physician via US Mail. Chief Complaint: Left fronto-temporal extra-axial lesion concerning for meningioma History of Present Illness: Patient is accompanied by . The patient is a 48 year old male who presents with 3 months hx of headaches, memory changes and personality changes. MRI brain was performed as a part of work-up which demonstrated a large left fronto-temporal tumor. Patient denies any vision changes, seizures or focal neurological deficits. He does not have any significant past medical history. He is not on any blood thinners. No seizure activity. No prior imaging, no prior brain radiation. Past Medical History: History reviewed. No pertinent past medical history. Past Surgical History: History reviewed. No pertinent surgical history. Family History: No family history on file. Social History: Medications: No current outpatient medications on file. No current facility-administered medications for this visit. Allergies: ALLERGIES No Known Allergies Physical Examination: BP 149/87 Pulse 80 Temp 37.1 ?C (98.8 ?F) (Temporal) Resp 18 Ht 176 cm (5' 9.29 ) Wt 83.6 kg (184 lb 4.9 oz) SpO2 98% BMI 26.99 kg/m? Well developed, well nourished Awake, alert, conversant Speech: normal comprehension, very subtle fluency deficit/slowed speech, mild difficulty with repetition 2nd cranial nerve: Full visual kat 3rd, 4th, and 6th cranial nerves: Pupils equally round and reactive to light, extraocular movements intact without nystagmus or subjective diplopia 5th cranial nerve: V1-3 intact to light touch bilaterally 7th cranial nerve: Facial muscles full and symmetric bilaterally 8th cranial nerve: hearing intact to finger rub bilaterally 9th cranial nerve: gag reflex test (more content not included)... [facility] 06-05-2024 Telephone encounter Note Images from the original note were not included. Time Frame: MERCEDES < 2-3 weeks Provider: Skull base surgeon Referring: Patient/Self Dx: Large meningioma Need imaging from [place], [place] Need office notes Patient: Jenn Fan Address: Jenn Fan [id number] [place] [address] Per Triage: Jenn Fan is a 48 year old male that requests evaluation of previously diagnosed large meningioma Patient expectations: New Consult Tumor Specifics: Location: brain Previous Evaluations: MRI w/wo contrast brain 05/27/24 Ashly Su APRN.CNP June 05, 2024 [facility] 06-05-2024 Miscellaneous Notes Images from the original note were not included. Time Frame: MERCEDES < 2-3 weeks Provider: Skull base surgeon Referring: Patient/Self Dx: Large meningioma Need imaging from [place], [place] Need office notes Patient: Jenn Fan Address: Jenn Fan [id number] [place] [address] Per Triage: Jenn Fan is a 48 year old male that requests evaluation of previously diagnosed large meningioma Patient expectations: New Consult Tumor Specifics: Location: brain Previous Evaluations: MRI w/wo contrast brain 05/27/24 Ashly Su APRN.CNP June 05, 2024 1. Epic: Who is requesting this appointment? Patient 2. Epic: Please indicate the best contact information for our team to reach you with any questions/concerns we may have: 3. Epic: For this appointment, we will need to request a few records from you. This will help our triage team be able to select the best provider for your treatment: MRI-BRAIN 4. Have you had any surgeries pertaining to this appointment? No 5. Epic: What facility and/or hospital have you been seen at? [facility] 6. Epic: Please allow up to 48-72 hours for our triage team to review your records. Once they reviewed your records, we will be in contact with you. Was the patient made aware of the turnaround time? Yes 7. Epic: Our department offers virtual visits. Can I get you scheduled to be seen virtually?No 8. Sent to triage pool. (Waiting on approval) 9. What is your expectation? Appointment documented in this encounter [facility] 06-05-2024 Telephone encounter Note 1. Epic: Who is requesting this appointment? Patient 2. Epic: Please indicate the best contact information for our team to reach you with any questions/concerns we may have: 3. Epic: For this appointment, we will need to request a few records from you. This will help our triage team be able to select the best provider for your treatment: MRI-BRAIN 4. Have you had any surgeries pertaining to this appointment? No 5. Epic: What facility and/or hospital have you been seen at? [facility] 6. Epic: Please allow up to 48-72 hours for our triage team to review your records. Once they reviewed your records, we will be in contact with you. Was the patient made aware of the turnaround time? Yes 7. Epic: Our department offers virtual visits. Can I get you scheduled to be seen virtually?No 8. Sent to triage pool. (Waiting on approval) 9. What is your expectation? Appointment [facility] 06-03-2024 Telephone encounter Note Dx: Brain Tumor 1. Information Technology Project Manager: Who is requesting this appointment?patient and patient's spouse/significant other 2. Information Technology Project Manager: Please indicate the best contact information for our team to reach you with any questions/concerns we may have? cell 3. Information Technology Project Manager: What is your diagnosis? Other 4. Information Technology Project Manager: Have you ever been seen at our center before? If yes, by whom? No (If the patient has been seen in our department before, please bypass the triage process and send a message to the animal care technician of the provider that the patient saw in the past. (Patient being referred to us with the same dx)). 5. Information Technology Project Manager: Is there a specific doctor you were referred to? Edin Blackburn 6. Information Technology Project Manager: What facility and/or hospital have you been seen at? [place], [place] Name of facility/name of provider where patient was treated. N/a 7. Information Technology Project Manager: For this appointment, we will need to request a few records from you. This will help our triage team be able to select the best provider for your treatment. a. Please provide: Most recent MRI- spine/Brain (Information Technology Project Manager will check CareEverywhere for records). 8. Information Technology Project Manager: Where was your last imaging completed:May 2024(Ideally should be completed within the last six months). 9. Information Technology Project Manager: Have you had any surgeries pertaining to this appointment? No If yes, please obtain pathology report. 10. Information Technology Project Manager: Please allow up to 48-72 hours for our triage team to review your records. Once they reviewed your records, we will be in contact with you. a. Was the patient made aware of the turnaround time? Yes 11. Information Technology Project Manager: Our department offers virtual visits depending on the provider you are recommended to see and the state that you live in. If able to schedule, would you like a virtual visit?Yes a. If answered yes: Does the patient have MyChart access: No If not, then corporate scheduler will walk patient through getting access to [employer]. b. If no, Are you interested in in person (If not, please indicate patient refused to schedule at this time and the reason to not proceed with scheduling). 12. Sent to triage pool. (Waiting approval). [facility] 06-03-2024 Miscellaneous Notes Dx: Brain Tumor 1. Information Technology Project Manager: Who is requesting this appointment?patient and patient's spouse/significant other 2. Information Technology Project Manager: Please indicate the best contact information for our team to reach you with any questions/concerns we may have? cell 3. Information Technology Project Manager: What is your diagnosis? Other 4. Information Technology Project Manager: Have you ever been seen at our center before? If yes, by whom? No (If the patient has been seen in our department before, please bypass the triage process and send a message to the animal care technician of the provider that the patient saw in the past. (Patient being referred to us with the same dx)). 5. Information Technology Project Manager: Is there a specific doctor you were referred to? Edin Blackburn 6. Information Technology Project Manager: What facility and/or hospital have you been seen at? [facility] in [place], [place] Name of facility/name of provider where patient was treated. N/a 7. Information Technology Project Manager: For this appointment, we will need to request a few records from you. This will help our triage team be able to select the best provider for your treatment. a. Please provide: Most recent MRI- spine/Brain (Information Technology Project Manager will check CareEverywhere for records). 8. Information Technology Project Manager: Where was your last imaging completed:May 2024(Ideally should be completed within the last six months). 9. Information Technology Project Manager: Have you had any surgeries pertaining to this appointment? No If yes, please obtain pathology report. 10. Information Technology Project Manager: Please allow up to 48-72 hours for our triage team to review your records. Once they reviewed your records, we will be in contact with you. a. Was the patient made aware of the turnaround time? Yes 11. Information Technology Project Manager: Our department offers virtual visits depending on the provider you are recommended to see and the state that you live in. If able to schedule, would you like a virtual visit?Yes a. If answered yes: Does the patient have MyChart access: No If not, then corporate scheduler will walk patient through getting access to [email or web address]. b. If no, Are you interested in in person (If not, please indicate patient refused to schedule at this time and the reason to not proceed with scheduling). 12. Sent to triage pool. (Waiting approval). documented in this encounter [facility] Evaluation note Diagnosis Meningioma (HCC) [D32.9]- Primary Benign neoplasm of cerebral meninges documented in this encounter [facility] note* Diagnosis Meningioma (HCC) [D32.9]- Primary Benign neoplasm of cerebral meninges documented in this encounter [facility] note* Diagnosis Pre-op evaluation- Primary Preoperative examination, unspecified Meningioma (HCC) Benign neoplasm of cerebral meninges Meningioma (HCC) Benign neoplasm of cerebral meninges documented in this encounter [facility] note* Diagnosis Brain mass- Primary Unspecified condition of brain documented in this encounter [facility] note* Diagnosis Meningioma (HCC) Benign neoplasm of cerebral meninges documented in this encounter [facility] note* Diagnosis Meningioma (HCC)- Primary Benign neoplasm of cerebral meninges documented in this encounter [facility] note* Diagnosis Meningioma (HCC)- Primary Benign neoplasm of cerebral meninges documented in this encounter [facility] note* Diagnosis Meningioma (HCC)- Primary Benign neoplasm of cerebral meninges [facility] Outpatient Procedure (Routine) - Pending Review Specialty Diagnoses / Procedures Referred By Beena mendez [facility] Diagnoses Pre-op evaluation Procedures ECG COMPLETE ECG ROUTINE ECG W/LEAST 12 LDS W/I&R Dominik Dowell PA-C [address] [place], [place] [id number] [facility] [place] [address] Referral ID Status Reason Start Date Expiration Date Visits Requested Visits Authorized [id number] Pending Review Auto-Generat ed Referral OON/Self Pay Override 07/01/2024 07/01/2025 1 1 [facility] Summary Purpose Family History No Family History Records FoundNo Family History Records Found Advance Directives No Advanced Directives Records FoundNo Advanced Directives Records Found Reason for Referral Specialty Diagnoses / Procedures Referred By Beena mendez Referred To Contact CT IMAGING Diagnoses Meningioma (HCC) Procedures CTA HEAD WO/W IVCON CT ANGIOGRAPHY HEAD W/CONTRAST/NONCONTRAST Ganesh Cruz MD [id number] [place] [id number] Referral ID Status Reason Start Date Expiration Date V isits Requested Visits Authorized [id number] Closed Patient Cleared - True Self-Pay required payment collected 06/26/2024 07/26/2025 1 1 Specialty Diagnoses / Procedures Referred By Contac t Referred To Contact MR IMAGING Diagnoses Meningioma (HCC) Procedures MRI BRAIN LOCALIZATION W IVCON UNLISTED MAGNETIC RESONANCE PROCED Ganesh Cruz MD [address] [place] [address] [id number] Referral ID Status Reason Start Date Expiration Date V isits Requested Visits Authorized [id number] Closed Patient Cleared - True Self-Pay required payment collected 06/26/2024 07/26/2025 1 1 Additional Source Comments (unrecognized sect ion and content) No Status Records FoundNo Status Records Found INFORMATION SOURCE (unrecogn ized section and content) DATE CREATED AUTHOR 05/23/2024 [facility] DATE CREATED AUTHOR AUTHOR'S ORGANIZ ATION 08/16/2024 [facility] Source Comments (unrecognize d section and content) In the event this informatio n is protected by the Federal Confidentiality of Alcohol and Drug Abuse Patient Records regulations: The Federal rules restrict any use of the information to criminally investigate or prosecute any alcohol or drug abuse patient.[facility] the event this information is protected by the Federal Confidentiality of Alcohol and Drug Abuse Patient Records regulations: The Federal rules restrict any use of the information to criminally investigate or prosecute any alcohol or drug abuse patient.[facility] the event this information is protected by the Federal Confidentiality of Alcohol and Drug Abuse Patient Records regulations: The Federal rules restrict any use of the information to criminally investigate or prosecute any alcohol or drug abuse patient.[facility] the event this information is protected by the Federal Confidentiality of Alcohol and Drug Abuse Patient Records regulations: The Federal rules restrict any use of the information to criminally investigate or prosecute any alcohol or drug abuse patient.[facility] the event this information is protected by the Federal Confidentiality of Alcohol and Drug Abuse Patient Records regulations: The Federal rules restrict any use of the information to criminally investigate or prosecute any alcohol or drug abuse patient.[facility] the event this information is protected by the Federal Confidentiality of Alcohol and Drug Abuse Patient Records regulations: The Federal rules restrict any use of the information to criminally investigate or prosecute any alcohol or drug abuse patient.[facility] System[facility] the event this information is protected by the Federal Confidentiality of Alcohol and Drug Abuse Patient Records regulations: The Federal rules restrict any use of the information to criminally investigate or prosecute any alcohol or drug abuse patient.[facility] the event this information is protected by the Federal Confidentiality of Alcohol and Drug Abuse Patient Records regulations: The Federal rules restrict any use of the information to criminally investigate or prosecute any alcohol or drug abuse patient.[facility] System[facility] the event this information is protected by the Federal Confidentiality of Alcohol and Drug Abuse Patient Records regulations: The Federal rules restrict any use of the information to criminally investigate or prosecute any alcohol or drug abuse patient.[facility] System[facility] the event this information is protected by the Federal Confidentiality of Alcohol and Drug Abuse Patient Records regulations: The Federal rules restrict any use of the information to criminally investigate or prosecute any alcohol or drug abuse patient.[facility] System[facility] the event this information is protected by the Federal Confidentiality of Alcohol and Drug Abuse Patient Records regulations: The Federal rules restrict any use of the information to criminally investigate or prosecute any alcohol or drug abuse patient.[facility] Reason for Visit (unrecogniz ed section and content) Reason Comments Triage Sent rightfax for me dical records & imaging Reason Comments triage Phone call Reason Comments New Patient Specialty Diagnoses / Procedures Referred By Contac t Referred To Contact [facility] Diagnoses meningioma Procedures NEW PATIENT VISIT LEVEL 1 Davin Montana, [address] [place] [address] [address] Referral ID Status Reason Start Date Expiration Date V isits Requested Visits Authorized [id number] Closed Financial Clearance Required - Self Pay Patient Cleared - True Self-Pay required payment collected 06/05/2024 09/03/2024 1 1 Reason Comments Patient Question Specialty Diagnoses / Procedures Referred By Contac t Referred To Contact ANESTHESIOLOGY Diagnoses Meningioma (HCC) Procedures REFER TO [facility] - PREOPERATIVE OPTIMIZATION OFFICE/OUTPATIENT NEW HIGH MDM 60 MINUTES Ganesh Cruz MD [address] [place] [address] Pre Anes [facility] [address] [place] [address] Referral ID Status Reason Start Date Expiration Date V isits Requested Visits Authorized [id number] Closed Patient Cleared - True Self-Pay required payment collected 06/26/2024 06/26/2025 [address] Specialty Diagnoses / Procedures Referred By Contac t Referred To Contact CT IMAGING Diagnoses Meningioma (HCC) Procedures CTA HEAD WO/W IVCON CT ANGIOGRAPHY HEAD W/CONTRAST/NONCONTRAST Ganesh Cruz MD [address] [place] [address] Ct Imaging [place] [address] Referral ID Status Reason Start Date Expiration Date V isits Requested Visits Authorized [id number] Closed Patient Cleared - True Self-Pay required payment collected 06/26/2024 07/26/2025 1 1 Reason Comments Radiology MRI Specialty Diagnoses / Procedures Referred By Contac t Referred To Contact MR IMAGING Diagnoses Meningioma (HCC) Procedures MRI BRAIN LOCALIZATION W IVCON UNLISTED MAGNETIC RESONANCE PROCED Ganesh Cruz MD [address] [place] [phone] Mr Imaging [place] [address] Referral ID Status Reason Start Date Expiration Date V isits Requested Visits Authorized [id number] Closed Patient Cleared - True Self-Pay required payment collected 06/26/2024 07/26/2025 1 1 Reason Comments Post Op Specialty Diagnoses / Procedures Referred By Contac t Referred To Contact [facility]MIT [facility] Diagnoses Benign neoplasm of meninges, unspecified Procedures ORBITOCRNL APPR MID CRANIAL FOSSA TEMPORAL LOBE Ganesh Cruz MD [address] [place] [phone] [address] [address] Referral ID Status Reason Start Date Expiration Date V isits Requested Visits Authorized [id number] Closed Patient Cleared - True Self-Pay required payment collected Patient Cleared - CCN Request Cancelled - Pre Qualified for HCAP/501R/FA or Patient Payment Collected 06/30/2024 09/28/2024 1 1 Care Teams (unrecognized sec tion and content) Steno Typist Relationship Specialty Start Date End Date Davin Montana DO [address] [place] [address] PCP - General Family Medicine 06/05/24 Davin Montana DO [address] [place] [address] Referring Family Medicine 06/05/24 Steno Typist Relationship Specialty Start Date End Date Davin Montana DO [address] [place] [address] PCP - General Family Medicine 06/05/24 Davin Montana DO [address] [place] [address] Referring Family Medicine 06/05/24 Steno Typist Relationship Specialty Start Date End Date Davin Montana DO [address] [place] [address] PCP - General Family Medicine 06/05/24 Davin Montana DO [address] [place] [address] Referring Family Medicine 06/05/24 Steno Typist Relationship Specialty Start Date End Date Davin Montana DO [address] [place] [address] PCP - General Family Medicine 06/05/24 Davin Montana DO [address] [place] [address] Referring Family Medicine 06/05/24 Steno Typist Relationship Specialty Start Date End Date Davin Montana DO [address] [place] [address] PCP - General Family Medicine 06/05/24 Davin Montana DO [address] [place] [address] Referring Family Medicine 06/05/24 Steno Typist Relationship Specialty Start Date End Date Davin Montana DO [address] [place] [address] PCP - General Family Medicine 06/05/24 Davin Montana DO [address] [place] [address] Referring Family Medicine 06/05/24 Steno Typist Relationship Specialty Start Date End Date Davin Montana DO [address] [place] [address] PCP - General Family Medicine 06/05/24 Davin Montana DO [address] [place] [address] Referring Family Medicine 06/05/24 Steno Typist Relationship Specialty Start Date End Date Davin Montana DO [address] [place] [address] PCP - General Family Medicine 06/05/24 Davin Montana DO [address] [place] [address] Referring Family Medicine 06/05/24 Steno Typist Relationship Specialty Start Date End Date Davin Montana DO [address] [place] [address] PCP - General Family Medicine 06/05/24 Davin Montana DO [address] [place] [address] Referring Family Medicine 06/05/24 FOR RECORDS PERTAINING TO PATIENTS WHO ARE OR HAVE BEEN ENROLLED IN A CHEMICAL DEPENDENCY/SUBSTANCEABUSE PROGRAM, SOME INFORMATION MAY BE OMITTED. This clinical summary was aggregated from multiple sources. Caution should be exercised in using it in the provision of clinical care. This summary normalizes information from multiple sources, and as a consequence, information in this document may materially change the coding, format and clinical context of patient data. In addition, data may be omitted in some cases. CLINICAL DECISIONS SHOULD BE BASED ON THE PRIMARY CLINICAL RECORDS. [facility] [employer] [facility] provides no warranty or guarantee of the accuracy or completeness of information in this document.
== END 2025-01-26 09:21 | disposition home or self-care (01) ==
LOC: MRI 09:21
PROVIDERS: PCP Family Medicine
DX: D32.9 Benign neoplasm of meninges, unspecified (principal)
CPT/HCPCS: 70553; A9575